=== PATIENT | female | born 1995 | race Caucasian/White ===

== ENCOUNTER 2016-08-10 21:25 | Outpatient (CLI) | payer MEDICAID ==
[2016-08-10 22:17] LABS: APPEARANCE,URINE SLIGHTLY-CLOUDY; BILIRUBIN,URINE NEGATIVE (NEGATIVE); GLUCOSE, URINE NEGATIVE (NEGATIVE); KETONES,URINE 20 mg/dL (NEGATIVE); LEUKOCYTE ESTERASE,URINE TRACE (NEGATIVE); NITRITE,URINE NEGATIVE (NEGATIVE); PROTEIN,URINE NEGATIVE (NEGATIVE); URINE SPECIFIC GRAVITY 1.013; UROBILINOGEN,URINE NEGATIVE mg/dL (<2.0)
[2016-08-10 22:23] LABS: AMNISURE (ROM) NEGATIVE (NEGATIVE)
[2016-08-10 22:31] LABS: URINE BARBITURATES SCREEN NEGATIVE; URINE METHADONE SCREEN NEGATIVE; URINE OPIATES LOW NEGATIVE; URINE PHENCYCLIDINE SCREEN NEGATIVE
--- NOTE | 2016-08-21 05:27 | Non Stress Test Report ---
Non Stress Test Datetime Report Generated by CPN: 08/21/2016 05:26 DEMOGRAPHIC EGA NST: 39.5 INDICATION Indication for Study: Other Indication for Study (NST) Other: labor check URINE RESULTS Urine Protein, NST: Negative Urine Ketones - NST: Positive Urine Glucose - NST: Negative Urine Blood - NST: Negative MONITORING Monitor Explained: Monitor Explained; Test Explained; Patient Verbalized Understanding Time on Monitor: 08/10/2016 21:45 Time off Monitor: 08/10/2016 22:53 NST Duration: 68 NST INTERVENTIONS NST Interventions: PO Hydration Physician Notified NST: Dr. Wilkinson BABY A: [id number] BABY A Movement : Present Contraction Frequency : 3-4.5 FHR Baseline : 125 Accelerations : 15X15 Decelerations : None Variability : Moderate 6-25bpm NST Review: Meets Criteria for Reactive NST NST Review and Verified By : Shalini Wilcox Rn NST Results: Reactive NST REPORT Report Trigger: Send Report
== END 2016-08-10 23:07 | disposition home or self-care (01) ==
LOC: LC 21:25
PROVIDERS: ATTEND Obstetrics & Gynecology
PROC: 4A1HXCZ Monitoring of Products of Conception, Cardiac Rate, External Approach (ICD-10-PCS; principal; 2016-08-10)
DX: O47.1 False labor at or after 37 completed weeks of gestation (principal); Z3A.39 39 weeks gestation of pregnancy
CPT/HCPCS: 59025; 80307; 81005; 84112

== ENCOUNTER 2016-08-20 14:20 | Inpatient (IN) | payer MEDICAID ==
[2016-08-21] MEDS ORDERED: OXYTOCIN/NORMAL SALINE 1,000 ML IV PRN ×2 (06:58→22:01)
[2016-08-21] MEDS ORDERED: RINGERS SOLUTION,LACTATED 1,000 ML IV PRN (06:58)
[2016-08-21] MEDS ORDERED: RINGERS SOLUTION,LACTATED 300 ML IV ONE (06:58)
[2016-08-21 07:11] LABS: APPEARANCE,URINE CLOUDY; BILIRUBIN,URINE NEGATIVE (NEGATIVE); GLUCOSE, URINE 50 mg/dL (NEGATIVE); KETONES,URINE NEGATIVE (NEGATIVE); LEUKOCYTE ESTERASE,URINE TRACE (NEGATIVE); NITRITE,URINE NEGATIVE (NEGATIVE); PROTEIN,URINE NEGATIVE (NEGATIVE); URINE SPECIFIC GRAVITY 1.013; UROBILINOGEN,URINE NEGATIVE mg/dL (<2.0)
[2016-08-21] MEDS ORDERED: OXYTOCIN/NORMAL SALINE 20 UNIT/1,000 ML RTUINJ ONE ×2 (07:28→21:04)
[2016-08-21 07:30] LABS: URINE BARBITURATES SCREEN NEGATIVE; URINE METHADONE SCREEN NEGATIVE; URINE OPIATES LOW NEGATIVE; URINE PHENCYCLIDINE SCREEN NEGATIVE
[2016-08-21 07:43] LABS: ABSOLUTE EOSINOPHILS # (AUTO) 0.1 10^3/uL (0.0-0.6); ABSOLUTE LYMPHOCYTES (AUTO) 1.8 10^3/uL (0.5-4.7); ABSOLUTE MONOCYTES (AUTO) 0.9 10^3/uL (0.1-1.4); ABSOLUTE NEUT (AUTO) 4.8 10^3/uL (1.7-8.2); BASOPHILS % (AUTO) 0.5 % (0-2); EOSINOPHILS % (AUTO) 1.5 % (0-6); HEMATOCRIT 32.2 % (36.0-47.0); HEMOGLOBIN 10.9 g/dL (12.0-15.5); HGB HCT DIFFERENCE 0.5; LYMPHOCYTES % (AUTO) 23.6 % (13-45); MEAN CORPUSCULAR HEMOGLOBIN 29.3 pg (27.0-33.4); MEAN CORPUSCULAR HGB CONC 33.9 g/dL (32.0-36.0); MEAN CORPUSCULAR VOLUME 86 fl (80-97); MONOCYTES % (AUTO) 11.4 % (3-13); RED BLOOD COUNT 3.73 10^6/uL (3.72-5.28); RED CELL DISTRIBUTION WIDTH 14.7 % (11.5-14.0); WHITE BLOOD COUNT 7.5 10^3/uL (4.0-10.5)
--- NOTE | 2016-08-21 09:16 | L&D Progress Notes ---
PROGRESS NOTES Datetime Report Generated by CPN: 08/21/2016 09:15 PROGRESS NOTE Impression Other: Induction of labor Procedures: Sterile Vag Exam Plan: Continue Present Management Informed Consent Obtained: Vaginal Delivery; Induction of Labor; Vaginal After ; Risks, Benefits and Alternatives Discussed Vital Signs : Reviewed; Within Normal Limits Comment: assuming care of this 21yo @ 41w2d into L_D this am for IOL S: reports starting to feel more contractions since pitocin started. Anticipates epidural for pain control O: VSS, cervix as stated above, UC 2-3min apart, pit @ 6mu/min A: IOL-stable P: continue IOL, reasses as clinically indicated. Epidural prn VAGINAL EXAM Dilatation: 3 Effacement: 80 Station: -2 Contractions: 2-3min MEMBRANES Membranes: Intact FETUS A FHR - Baseline: 125 Monitoring: External US Variability: Moderate 6-25bpm Accelerations: 15X15 Decelerations: None SIGNATURE SIGNATURE: [id number] SIGNATURE: [id number] Assignment: Berta Coats MD Signature: with User ID: [email or web address] : with User ID: [email or web address]
--- NOTE | 2016-08-21 15:31 | L&D Progress Notes ---
PROGRESS NOTES Datetime Report Generated by CPN: 08/21/2016 15:31 PROGRESS NOTE Impression Other: IOL-stable Procedures: Artificial ROM; Sterile Vag Exam Plan: Continue Present Management; Induction Informed Consent Obtained: Vaginal Delivery; Induction of Labor; Risks, Benefits and Alternatives Discussed Vital Signs : Reviewed; Within Normal Limits Comment: S: Pt. comfortable with contractions O: VSS, UC as stated above, pit @ 20mu/min A: IOL-stable, AROM-clear fluid P: continue IOL will increase pitocin per DrErasto Coats VAGINAL EXAM Dilatation: 3 Effacement: 90 Station: -1 Contractions: 1.5-3 MEMBRANES Membranes: Ruptured FETUS A Monitoring: External US Decelerations: None FHR Category: Category I FETUS C SIGNATURE: [id number];[id number] Assignment: Berta Coats MD Signature: with User ID: [email or web address] : with User ID: [email or web address]
[2016-08-21] MEDS ORDERED: EPHEDRINE SULFATE INJ 50 MG/1 ML AMPULE ONE (16:56)
[2016-08-21] MEDS ORDERED: FENTANYL/BUPIVACAINE/NS/PF 200 MCG/100 ML RTUINJ EPI ONE (16:57)
[2016-08-21] MEDS ORDERED: BUPIVACAINE HCL 0.25 % INJ/PF (2.5 MG/1 ML) 30 ML VIAL ONE (16:57)
[2016-08-21] MEDS ORDERED: LIDOCAINE 1% INJ-PF (10 MG/ML) 30 ML SDV ONE (21:04)
[2016-08-21] MEDS ORDERED: METHYLERGONOVINE MALEATE INJ/PF 0.2 MG/1 ML AMPULE ONE (21:04)
[2016-08-21] MEDS ORDERED: MISOPROSTOL 0.2 MG TABLET ONE (21:04)
[2016-08-21] MEDS ORDERED: ACETAMINOPHEN WITH CODEINE #3 TABLET PO PRN ×2 (22:01)
[2016-08-21] MEDS ORDERED: BENZOCAINE/MENTHOL AEROSOL SPRAY 56 ML TOP PRN (22:01)
[2016-08-21] MEDS ORDERED: ZOLPIDEM TARTRATE 5 MG TABLET PO PRN (22:01)
[2016-08-21] MEDS ORDERED: DIBUCAINE 1% OINTMENT 28 GM TP PRN (22:01)
[2016-08-21] MEDS ORDERED: DIPH/PERTUSS(ACELL)/TETANUS VAC/PF 0.5 ML SYR (>=10YO) IM PRN (22:01)
[2016-08-21] MEDS ORDERED: MEASLES,MUMPS&RUBELLA VACC/PF 0.5 ML VIAL SUBCUT PRN (22:01)
[2016-08-21] MEDS ORDERED: IBUPROFEN 800 MG TABLET ONE (23:20)
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
--- NOTE | 2016-08-22 00:05 | Delivery Summary ---
Del Sum A-C Datetime Report Generated by CPN: 08/22/2016 00:05 DELIVERY PERSONNEL DELIVERY PERSONNEL: [id number];[id number];[id number] Delivery Doctor:: Berta Coats MD Labor and Delivery Nurse:: Steph Duque RNchemical maker Nurse:: Roxanna Wilcox RN MATERNAL INFORMATION Delivery Anesthesia: Epidural Medications After Delivery: Pitocin Bolus-Please Comment Estimated Blood Loss (ml): 200 Maternal Complications: None LABOR SUMMARY EDC: 08/12/2016 00:00 No. Babies in Womb: 1 Attempted: No Labor Anesthesia: Epidural LABOR INFORMATION Reason for Induction: Postterm Onset of Labor: 08/21/2016 18:04 Complete Dilatation: 08/21/2016 20:59 Cervical Ripening Agents: Cervidil Oxytocin: Induction Group B Beta Strep: Negative Antibiotics # of Doses: 0 MEMBRANES Membranes Rupture Method: Artificial Rupture of Membranes: 08/21/2016 15:16 Length of Rupture (hr): 6.27 Amniotic Fluid Color: Clear Amniotic Fluid Amount: Moderate STAGES OF LABOR Stage 1 hr: 2 Stage 1 min: 55 Stage 2 hr: 0 Stage 2 min: 33 Stage 3 hr: 0 Stage 3 min: 3 Total Time in Labor hr: 3 Total Time in Labor min: 31 VAGINAL DELIVERY Episiotomy: None Laceration Extension: Second Degree Laceration Type: Perineal Sponge Count Correct: N/A Sharps Count Correct: Yes Count Comment: 2-0 chromic repair in normal fashion CSECTION DELIVERY Primary Indication: N/A Secondary Indication: N/A CSection Incidence: N/A Labor: N/A Elective: N/A CSection Incision: N/A BABY A INFORMATION Infant Delivery Date/Time: 08/21/2016 21:32 Method of Delivery: Vaginal Born in Route : No : N/A Forceps: N/A Vacuum Extraction: N/A Shoulder Dystocia : No PRESENTATION/POSITION BABY A Presentation: Cephalic Cephalic Presentation: Vertex Vertex Position: Left Occipital Posterior Breech Presentation: N/A PLACENTA INFORMATION BABY A Placenta Delivery Time : 08/21/2016 21:35 Placenta Method of Delivery: Spontaneous Placenta Status: Delivered SCORES BABY A Heart Rate 1 min: >100 bpm Resp Effort 1 min: Slow, Irregular Reflex Irritability 1 min: Cough or Sneeze or Pulls Away Muscle Tone 1 min: Active Motion Color 1 min: Body Delta, Extremities Blue SCORE 1 MIN: 8 Heart Rate 5 min: >100 bpm Resp Effort 5 min: Good Cry Reflex Irritability 5 min: Cough or Sneeze or Pulls Away Muscle Tone 5 min: Active Motion Color 5 min: Body Delta, Extremities Blue SCORE 5 MIN: 9 INFORMATION BABY A Gestational Age at Delivery: 41.2 Gestational Status: Late Term- 41- 41.6 Weeks Infant Outcome : Liveborn Infant Condition : Stable Sex: Female IDENTIFICATION BABY A Verification Date/Time: 08/21/2016 21:45 ID Band Number: [id number] Mother's Name Verified: Yes RN Verifying Infant: R Jazz, RNC Additional Verifying Personnel: Shalini Wilcox RN WEIGHT/LENGTH BABY A Birthweight (gm): 3560 Infant Weight (lb): 7 Infant Weight (oz): 14 Length (in): 20.00 Length (cm): 50.80 CORD INFORMATION BABY A No. Cord Vessels: 3 Nuchal Cord : N/A Cord Blood Taken: Yes-For Eval (Mom's Blood Type - or O+) Suction: Mouth; Nose ASSESSMENT BABY A Complications: None Physical Findings at Delivery: Within Normal Limits Infant Respirations: Grunting Skin to Skin: Yes Skin to Skin Time (min): 40 Cracking Still Operator/ALS Called : No Infant Care By: A Wilcox Rn Transferred To: Remains with Mother BABY B INFORMATION : N/A SIGNATURES Signature: with User ID: [email or web address]
[2016-08-22] MEDS: IBUPROFEN 800 MG TABLET PO SCH ×3 (06:39→21:13)
[2016-08-22 08:42] LABS: HEMATOCRIT 29.6 % (36.0-47.0); HEMOGLOBIN 9.9 g/dL (12.0-15.5); HGB HCT DIFFERENCE 0.1; MEAN CORPUSCULAR HEMOGLOBIN 29.1 pg (27.0-33.4); MEAN CORPUSCULAR HGB CONC 33.5 g/dL (32.0-36.0); MEAN CORPUSCULAR VOLUME 87 fl (80-97); RED BLOOD COUNT 3.41 10^6/uL (3.72-5.28); RED CELL DISTRIBUTION WIDTH 14.9 % (11.5-14.0); WHITE BLOOD COUNT 11.1 10^3/uL (4.0-10.5)
--- NOTE | 2016-08-22 10:06 | PDOC PROGRESS REPORT ---
Subjective-OB Subjective: Post Delivery Day: 1 21 year old. Denies any needs at this time, voiding well, lochia is stable, pain well controlled. Physical Exam (OB) Vital Signs: Temp Pulse Resp BP Pulse Ox 97.8 F 68 16 106/53 L 99 08/22/16 08:00 08/22/16 08:00 08/22/16 08:00 08/22/16 08:00 08/22/16 08:00 Intake & Output 08/21/16 08/22/16 08/23/16 06:59 06:59 06:59 Output Total 1500 Balance -1500 Weight 67 kg - Lochia Lochia Amount: Small 10-25 ml Lochia Color: Rubra/Red - Abdomen Description: Soft, Round Hernia Present: No Fundal Description: Firm, Midline Fundal Height: u/u - u/2 Objective-Diagnostic Laboratory: 08/22/16 07:41 08/22/16 07:41 WBC 11.1 H RBC 3.41 L Hgb 9.9 L Hct 29.6 L MCV 87 MCH 29.1 MCHC 33.5 RDW 14.9 H Plt Count 195 Assessment and Plan(PN) - Assessment and Plan (1) Vaginal delivery Is this a current diagnosis for this admission?: YesPlan: routine pp care (2) History of depression Is this a current diagnosis for this admission?: YesPlan: d/c planning - Time Spent with Patient Time with patient: Less than 15 minutes Critical Time spent with patient: Less than 15 minutes Medications reviewed and adjusted accordingly: Yes - Disposition Anticipated Discharge: Home Within: within 48 hours
[2016-08-22] MEDS: SENNOSIDES/DOCUSATE 8.6-50 MG 1 EACH TABLET PO SCH (11:43)
[2016-08-22] MEDS: FERROUS SULFATE 325 MG TABLET PO SCH ×2 (11:45→17:47)
[2016-08-22] MEDS: PRENATAL VITAMIN W-O CA NO5/FE FUMARATE/FA CAPSULE PO SCH (11:45)
[2016-08-22] MEDS: DOCUSATE SODIUM 100 MG CAPSULE PO SCH ×2 (11:45→17:47)
[2016-08-22] MEDS ORDERED: ALBUTEROL SULFATE HFA (90 MCG/PUFF) 200 PUFF/8.5 GM MDI IH PRN (16:58)
[2016-08-23] MEDS: IBUPROFEN 800 MG TABLET PO SCH (06:17)
--- NOTE | 2016-08-23 08:28 | PDOC DISCHARGE SUMMARY ---
Final Diagnosis Discharge Date: 08/23/16 - Final Diagnosis (1) Vaginal delivery Is this a current diagnosis for this admission?: Yes (2) History of depression Is this a current diagnosis for this admission?: Yes Discharge Data - Discharge Medication Home Medications: Albuterol Sulfate [Proair HFA] 1 - 2 puff IH PRN PRN 02/25/14 Vit #76/Iron,Carb/FA [Pnv 29-1 Tablet] 1 tab PO DAILY 08/11/16 Sertraline HCl [Zoloft 50 mg Tablet] 100 mg PO DAILY 08/11/16 Acetaminophen with Codeine [Tylenol #3 Tablet] 1 each PO Q4HP PRN #14 tablet 06/06 Docusate Sodium [Colace 100 mg Capsule] 100 mg PO BID #60 capsule 08/23/16 Ferrous Sulfate [Feosol 325 mg Tablet] 325 mg PO BID #60 tablet 08/23/16 Ibuprofen [Motrin 800 mg Tablet] 800 mg PO Q8 #60 tablet 08/23/16 Gestational Age: 41.2 Reason(s) for Admission: Induction of Labor Procedures: NST Intrapartum Procedure(s): Spontaneous Vaginal Delivery Complication(s): Laceration-Perineal Laceration-Degree: 2nd - [place] Data Baby 1 Female at 1 minute: 8 at 5 minutes: 9 Weight: 3560 kg Home with Mother: Yes Complications: No - Diagnosis Test Laboratory: Temp Pulse Resp BP Pulse Ox 98.6 F 79 16 113/52 L 99 08/22/16 20:20 08/22/16 20:20 08/22/16 20:20 08/22/16 20:33 08/22/16 20:20 08/21/16 08/21/16 08/22/16 06:46 07:20 07:41 RBC 3.73 3.41 L Hgb 10.9 L 9.9 L Hct 32.2 L 29.6 L Urine Opiates Screen NEGATIVE - Discharge information/Instructions Discharge Activity: Activity As Tolerated, Pelvic Rest, No tub bath Discharge Diet: Regular Disposition: HOME, SELF-CARE Follow up with: [facility] in: 4, Weeks
[2016-08-23 09:53] VITALS: BP 113/52
[2016-08-23] MEDS ORDERED: SERTRALINE HCL 50 MG TABLET PO SCH (10:00)
[2016-08-23] MEDS: PRENATAL VITAMIN W-O CA NO5/FE FUMARATE/FA CAPSULE PO SCH (10:12)
[2016-08-23] MEDS: DOCUSATE SODIUM 100 MG CAPSULE PO SCH (10:12)
[2016-08-23] MEDS: FERROUS SULFATE 325 MG TABLET PO SCH (10:12)
[2016-08-23] MEDS: SENNOSIDES/DOCUSATE 8.6-50 MG 1 EACH TABLET PO SCH (10:12)
== END 2016-08-23 11:10 | disposition home or self-care (01) | DRG 775 ==
LOC: EEVIPCON 08-21 06:30 → LR 08-21 06:30 → 2S 08-21 23:43
PROVIDERS: ADMIT Obstetrics & Gynecology; ATTEND Obstetrics & Gynecology
PROC: 10E0XZZ Delivery of Products of Conception, External Approach (ICD-10-PCS; principal; 2016-08-21)
PROC: 0KQM0ZZ Repair Perineum Muscle, Open Approach (ICD-10-PCS; 2016-08-21)
PROC: 4A1HXCZ Monitoring of Products of Conception, Cardiac Rate, External Approach (ICD-10-PCS; 2016-08-21)
PROC: 3E033VJ Introduction of Other Hormone into Peripheral Vein, Percutaneous Approach (ICD-10-PCS; 2016-08-21)
PROC: 10907ZC Drainage of Amniotic Fluid, Therapeutic from Products of Conception, Via Natural or Artificial Opening (ICD-10-PCS; 2016-08-21)
DX: O48.0 Post-term pregnancy (principal); O70.1 Second degree perineal laceration during delivery; O99.344 Other mental disorders complicating childbirth; F43.10 Post-traumatic stress disorder, unspecified; F41.9 Anxiety disorder, unspecified; Z62.810 Personal history of physical and sexual abuse in childhood; F32.9 Major depressive disorder, single episode, unspecified; O99.52 Diseases of the respiratory system complicating childbirth; J45.909 Unspecified asthma, uncomplicated; O99.02 Anemia complicating childbirth; D64.9 Anemia, unspecified; Z3A.41 41 weeks gestation of pregnancy; Z37.0 Single live birth; Z88.0 Allergy status to penicillin; Z87.891 Personal history of nicotine dependence; Z79.899 Other long term (current) drug therapy; Z14.1 Cystic fibrosis carrier
CPT/HCPCS: 36415; 80307; 81005; 85025; 85027; 86592; 86850; 86900; 86901; 94760; J2210; J2590; J3490

== ENCOUNTER 2016-09-14 06:39 | Emergency (ER) | payer OTHER, MEDICAID ==
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
[2016-09-14 08:12] LABS: ABSOLUTE BASOPHILS # (AUTO) 0.1 10^3/uL (0.0-0.2); ABSOLUTE EOSINOPHILS # (AUTO) 0.2 10^3/uL (0.0-0.6); ABSOLUTE LYMPHOCYTES (AUTO) 2.1 10^3/uL (0.5-4.7); ABSOLUTE MONOCYTES (AUTO) 0.5 10^3/uL (0.1-1.4); ABSOLUTE NEUT (AUTO) 4.4 10^3/uL (1.7-8.2); BASOPHILS % (AUTO) 0.8 % (0-2); EOSINOPHILS % (AUTO) 3.4 % (0-6); HEMATOCRIT 43.7 % (36.0-47.0); HEMOGLOBIN 14.5 g/dL (12.0-15.5); HGB HCT DIFFERENCE -0.2; LYMPHOCYTES % (AUTO) 28.8 % (13-45); MEAN CORPUSCULAR HEMOGLOBIN 28.4 pg (27.0-33.4); MEAN CORPUSCULAR HGB CONC 33.2 g/dL (32.0-36.0); MEAN CORPUSCULAR VOLUME 86 fl (80-97); MONOCYTES % (AUTO) 6.8 % (3-13); RED BLOOD COUNT 5.11 10^6/uL (3.72-5.28); RED CELL DISTRIBUTION WIDTH 14.2 % (11.5-14.0); SEGMENTED NEUTROPHILS % (AUTO) 60.2 % (42-78); WHITE BLOOD COUNT 7.3 10^3/uL (4.0-10.5)
[2016-09-14 08:31] LABS: ALANINE AMINOTRANSFERASE 44 U/L (9-52); ALKALINE PHOSPHATASE 96 U/L (38-126); ANION GAP 12 (5-19); ASPARTATE AMINO TRANSFERASE 28 U/L (14-36); BILIRUBIN,DIRECT 0.3 mg/dL (0.0-0.4); BILIRUBIN,TOTAL 0.4 mg/dL (0.2-1.3); BLOOD UREA NITROGEN 13 mg/dL (7-20); CALCIUM 9.5 mg/dL (8.4-10.2); CARBON DIOXIDE 26 mmol/L (22-30); CHLORIDE 106 mmol/L (98-107); CREATININE RESULT 0.61 mg/dL (0.52-1.25); GLUCOSE 96 mg/dL (75-110); POTASSIUM 4.3 mmol/L (3.6-5.0); SODIUM 143.5 mmol/L (137-145); TOTAL PROTEIN 7.5 g/dL (6.3-8.2)
[2016-09-14 08:32] LABS: ALCOHOL < 10 mg/dL (NONE DETECTED)
[2016-09-14 09:01] LABS: APPEARANCE,URINE SLIGHTLY-CLOUDY; BILIRUBIN,URINE NEGATIVE (NEGATIVE); GLUCOSE, URINE NEGATIVE (NEGATIVE); KETONES,URINE NEGATIVE (NEGATIVE); LEUKOCYTE ESTERASE,URINE LARGE (NEGATIVE); NITRITE,URINE NEGATIVE (NEGATIVE); PROTEIN,URINE NEGATIVE (NEGATIVE); URINE SPECIFIC GRAVITY 1.021; UROBILINOGEN,URINE NEGATIVE mg/dL (<2.0)
[2016-09-14 09:02] LABS: URINE BARBITURATES SCREEN NEGATIVE; URINE METHADONE SCREEN NEGATIVE; URINE OPIATES LOW NEGATIVE; URINE PHENCYCLIDINE SCREEN NEGATIVE
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
--- NOTE | 2016-09-14 09:35 | EKG REPORT ---
SEVERITY:- NORMAL ECG - SINUS RHYTHM : Confirmed by: Blane Nicolas 14-Sep-2016 09:34:45
[2016-09-14] MEDS ORDERED: FLUOXETINE HCL 20 MG CAPSULE PO SCH (11:00)
[2016-09-14] MEDS ORDERED: BUSPIRONE HCL 10 MG TABLET PO SCH (11:00)
[2016-09-14] MEDS ORDERED: CLONIDINE HCL 0.1 MG TABLET PO SCH (22:00)
--- NOTE | 2016-09-15 10:20 | ER Document Report ---
Doctor's Note Notes: 09/15/16 10:18 Patient resting comfortably on stretcher, Mrs. Koch, mother of the family with whom she resides is at bedside, patient does report feeling much better, she is smiling and interactive, denies having any suicidal thoughts or intent for self- harm today, feels as though she is possibly ready to be discharged home with appropriate resources, she is noted to have urinalysis that is consistent with a urinary tract infection and she does confirm burning sensation with urination over the past few weeks, she will be started on antibiotics for this, she is otherwise medically stable for transfer or discharge
[2016-09-15] MEDS ORDERED: NITROFURANTOIN MONOHYD/M-CRYST 100 MG CAPSULE PO ONE (10:21)
[2016-09-15 12:35] VITALS: BP 101/46
== END 2016-09-15 12:32 | disposition home or self-care (01) ==
LOC: ER 06:39
DX: F53 Mental and behavioral disorders associated with the puerperium, not elsewhere classified (principal); O99.345 Other mental disorders complicating the puerperium; F43.10 Post-traumatic stress disorder, unspecified; F41.9 Anxiety disorder, unspecified; O86.20 Urinary tract infection following delivery, unspecified; O99.53 Diseases of the respiratory system complicating the puerperium; J45.909 Unspecified asthma, uncomplicated; Z79.899 Other long term (current) drug therapy; Z88.0 Allergy status to penicillin
CPT/HCPCS: 93005; 99284; 36415; 80307 ×4; 85025; 80053; 81001; 93010; J3490 ×4; J8499

== ENCOUNTER → 2017-02-06 | Outpatient (CLI) | payer MEDICAID ==
--- NOTE | 2017-02-06 14:08 | RADIOLOGY REPORT (SQ) ---
EXAM DESCRIPTION: SOFT TISSUE NECK COMPLETED DATE/TIME: 02/06/2017 12:30 pm REASON FOR STUDY: PAIN IN THROAT R07.0 PAIN IN THROAT COMPARISON: None. NUMBER OF VIEWS: Two views. TECHNIQUE: AP and lateral radiographic image of the soft tissues of the neck. LIMITATIONS: None. FINDINGS: EPIGLOTTIS: Normal. Contour normal. Aryepiglottic folds normal. PREVERTEBRAL SOFT TISSUES: Normal. No soft tissue swelling. SUBGLOTTIC AREA: Normal. No narrowing. RETROPHARYNGEAL SPACE: Normal. No soft tissue masses. BONES: No significant findings. LUNG APICES: Normal. OTHER: No radiopaque foreign body. No other significant finding. IMPRESSION: NEGATIVE STUDY OF THE SOFT TISSUES OF THE NECK. TECHNICAL DOCUMENTATION: JOB ID: [id number] [employer]- All Rights Reserved
== END ==
LOC: OD 12:08
PROVIDERS: ATTEND Physician Assistant
DX: R07.0 Pain in throat (principal)
CPT/HCPCS: 70360

== ENCOUNTER → 2017-05-29 | Outpatient (CLI) | payer MEDICAID ==
[2017-05-29 18:04] LABS: HEMATOCRIT 40.8 % (36.0-47.0); HEMOGLOBIN 13.6 g/dL (12.0-15.5); MEAN CORPUSCULAR HEMOGLOBIN 27.9 pg (27.0-33.4); MEAN CORPUSCULAR HGB CONC 33.4 g/dL (32.0-36.0); MEAN CORPUSCULAR VOLUME 83 fl (80-97); PLATELET COUNT 251 10^3/uL (150-450); RED BLOOD COUNT 4.89 10^6/uL (3.72-5.28); RED CELL DISTRIBUTION WIDTH 13.3 % (11.5-14.0); WHITE BLOOD COUNT 5.4 10^3/uL (4.0-10.5)
[2017-05-29 18:31] LABS: ALANINE AMINOTRANSFERASE 33 U/L (9-52); ALBUMIN 4.4 g/dL (3.5-5.0); ALKALINE PHOSPHATASE 57 U/L (38-126); ANION GAP 9 (5-19); ASPARTATE AMINO TRANSFERASE 21 U/L (14-36); BILIRUBIN,DIRECT 0.4 mg/dL (0.0-0.4); BILIRUBIN,TOTAL 0.4 mg/dL (0.2-1.3); BLOOD UREA NITROGEN 13 mg/dL (7-20); CALCIUM 9.5 mg/dL (8.4-10.2); CARBON DIOXIDE 29 mmol/L (22-30); CHLORIDE 106 mmol/L (98-107); GLUCOSE 89 mg/dL (75-110); POTASSIUM 4.1 mmol/L (3.6-5.0); TOTAL PROTEIN 7.8 g/dL (6.3-8.2)
[2017-05-29 18:45] LABS: FREE T4 (FREE THYROXINE) 0.84 ng/dL (0.78-2.19)
[2017-05-29 18:59] LABS: THYROID STIMULATING HORMONE 2.95 uIU/mL (0.47-4.68)
== END ==
LOC: OD 16:56
PROVIDERS: ATTEND Physician Assistant
DX: F34.1 Dysthymic disorder (principal); R53.83 Other fatigue; Z13.21 Encounter for screening for nutritional disorder; Z13.29 Encounter for screening for other suspected endocrine disorder
CPT/HCPCS: 36415; 80053; 82306; 84439; 84443; 85027

== ENCOUNTER 2017-08-07 23:52 | Emergency (ER) | payer OTHER, MEDICAID ==
[2017-08-08 00:42] LABS: ABSOLUTE LYMPHOCYTES (AUTO) 0.9 10^3/uL (0.5-4.7); ABSOLUTE MONOCYTES (AUTO) 0.4 10^3/uL (0.1-1.4); ABSOLUTE NEUT (AUTO) 10.8 10^3/uL (1.7-8.2); BASOPHILS % (AUTO) 0.2 % (0-2); HEMATOCRIT 41.1 % (36.0-47.0); HEMOGLOBIN 13.6 g/dL (12.0-15.5); LYMPHOCYTES % (AUTO) 7.6 % (13-45); MEAN CORPUSCULAR HEMOGLOBIN 27.1 pg (27.0-33.4); MEAN CORPUSCULAR HGB CONC 33.1 g/dL (32.0-36.0); MEAN CORPUSCULAR VOLUME 82 fl (80-97); MONOCYTES % (AUTO) 3.6 % (3-13); PLATELET COUNT 290 10^3/uL (150-450); RED BLOOD COUNT 5.02 10^6/uL (3.72-5.28); RED CELL DISTRIBUTION WIDTH 13.4 % (11.5-14.0); SEGMENTED NEUTROPHILS % (AUTO) 88.6 % (42-78); TOTAL CELLS COUNTED % (AUTO) 100 %; WHITE BLOOD COUNT 12.2 10^3/uL (4.0-10.5)
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
[2017-08-08 00:59] LABS: APPEARANCE,URINE SLIGHTLY-CLOUDY; BILIRUBIN,URINE NEGATIVE (NEGATIVE); COLOR,URINE YELLOW; GLUCOSE, URINE NEGATIVE (NEGATIVE); KETONES,URINE TRACE mg/dL (NEGATIVE); LEUKOCYTE ESTERASE,URINE NEGATIVE (NEGATIVE); NITRITE,URINE NEGATIVE (NEGATIVE); PROTEIN,URINE NEGATIVE (NEGATIVE); URINE SPECIFIC GRAVITY 1.023
[2017-08-08 01:05] LABS: ALANINE AMINOTRANSFERASE 24 U/L (9-52); ALBUMIN 4.5 g/dL (3.5-5.0); ALKALINE PHOSPHATASE 67 U/L (38-126); ASPARTATE AMINO TRANSFERASE 20 U/L (14-36); BILIRUBIN,DIRECT 0.4 mg/dL (0.0-0.4); BILIRUBIN,TOTAL 0.5 mg/dL (0.2-1.3); BLOOD UREA NITROGEN 11 mg/dL (7-20); CHLORIDE 107 mmol/L (98-107); GLUCOSE 134 mg/dL (75-110); POTASSIUM 4.1 mmol/L (3.6-5.0)
[2017-08-08 01:07] LABS: ACETAMINOPHEN < 10 ug/mL (10-30); ALCOHOL < 10 mg/dL (NONE DETECTED); SALICYLATE < 1.0 mg/dL (2.0-20.0)
[2017-08-08 01:09] LABS: CARBON DIOXIDE 22 mmol/L (22-30); SODIUM 149.1 mmol/L (137-145)
[2017-08-08 01:12] LABS: ANION GAP 20 (5-19)
[2017-08-08 01:13] LABS: URINE AMPHETAMINES SCREEN NEGATIVE; URINE BARBITURATES SCREEN NEGATIVE; URINE BENZODIAZEPINES SCREEN NEGATIVE; URINE COCAINE SCREEN NEGATIVE; URINE MARIJUANA (THC) SCREEN NEGATIVE; URINE METHADONE SCREEN NEGATIVE; URINE PHENCYCLIDINE SCREEN NEGATIVE
[2017-08-08] MEDS ORDERED: NORMAL SALINE 1000 ML 1,000 ML IV ONE (02:16)
--- NOTE | 2017-08-08 09:35 | ER Document Report ---
Doctor's Note Notes: 08/08/17 09:33 This is a 22-year-old female who presented to the emergency room with depression after an overdose with processing. She is currently alert and oriented 3. She denies SI at this time. She does report a recent sinusitis and is requesting her medicines for this. Her vital signs and labs have been stable. We are awaiting evaluation by the psychology team. In the meantime, we will call her friend had home to bring in her medicines.
[2017-08-08] MEDS ORDERED: IBUPROFEN 400 MG TABLET PO ONE (12:29)
[2017-08-08] MEDS ORDERED: BENZTROPINE MESYLATE 1 MG TABLET PO SCH (12:30)
[2017-08-08] MEDS ORDERED: OLANZAPINE 5 MG TABLET PO SCH (12:30)
[2017-08-08] MEDS ORDERED: BUSPIRONE HCL 10 MG TABLET PO SCH (12:30)
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
[2017-08-08] MEDS ORDERED: BENZTROPINE MESYLATE 1 MG TABLET PO ONE (14:15)
[2017-08-08] MEDS: OLANZAPINE 5 MG TABLET PO SCH (18:54)
[2017-08-08] MEDS: BUSPIRONE HCL 10 MG TABLET PO SCH (18:55)
--- NOTE | 2017-08-08 20:48 | EKG REPORT ---
SEVERITY:- OTHERWISE NORMAL ECG - SINUS ARRHYTHMIA, RATE [id number] : Confirmed by: Blane Nicolas 08-Aug-2017 17:47:37
--- NOTE | 2017-08-09 10:15 | ER Document Report ---
Doctor's Note Notes: 08/09/17 10:14 Medical rounds: Chart reviewed and patient interviewed briefly. Vital signs are normal. Laboratory values satisfactory. On examination, patient is alert, oriented, and cooperative. She denies any somatic complaints at this time. She remains medically stable, pending reevaluation by psych.
[2017-08-09] MEDS: OLANZAPINE 5 MG TABLET PO SCH ×2 (10:24→18:29)
[2017-08-09] MEDS: BUSPIRONE HCL 10 MG TABLET PO SCH ×2 (10:25→18:29)
[2017-08-09] MEDS: BENZTROPINE MESYLATE 1 MG TABLET PO SCH (10:25)
[2017-08-10] MEDS: BUSPIRONE HCL 10 MG TABLET PO SCH (09:06)
[2017-08-10] MEDS: BENZTROPINE MESYLATE 1 MG TABLET PO SCH (09:07)
[2017-08-10] MEDS: OLANZAPINE 5 MG TABLET PO SCH (09:07)
[2017-08-10] MEDS ORDERED: DOXYCYCLINE HYCLATE 100 MG TABLET PO SCH (10:00)
[2017-08-10] MEDS ORDERED: ACETAMINOPHEN 325 MG TABLET PO ONE (10:04)
--- NOTE | 2017-08-10 11:43 | PSYCHOLOGICAL NOTE ---
Psych Note - Psych Note Psych Note: Reason for consult: Suicidal ideation, intentional overdose Contact Permissions: Juan Daniel Mix [phone] Eval: am Final Disposition pm Patient is a 22 year old female. Patient reports on a scale of 1 through 10 with 10 being things are better she is out of 5. Patient reports she is feeling physically sick and has been sick since Thursday. Patient reports that she had visitors her friend that she lives with and it made her feel little bit better. Patient reports that she just wants to get rest and it has been able to sleep. Patient reports that she does not have any thoughts of wanting to harm, or kill herself at this time. Patient reports that she received medication changes and that she feels they are helping her. 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 Patient reports that she wants to work where she would be able to see her daughter in the same school when she grows up, her daughter is currently 11 months old. Patient reports that she has a good support system. Patient reports she is flexible with whatever treatment plan the psych and medical team discusses. Patient reports her daughter is a happy baby, patient stated " I just want to be happy, I don't want to feel this way, I want happiness". Medication recommendations per [facility]'s contracted psychiatrist Dr. Syeda RODRIGUEZ are as follows 1. Zyprexa 5 mg twice daily for mood stabilization 2. BuSpar 5 twice daily for anxiety 3. Cogentin 1 mg daily for prevention of possible side effects from Zyprexa Diagnosis: 309.81 (F43.10) posttraumatic stress disorder per history Impression/Plan: Recommendation to maintain involuntary commitment . [facility]'s contacted psychiatric provider made a medication recommendation yesterday 2017. Patient stated her mood has improved, however she is still feeling unwell ( physically). Patient stated she needs rest, and is willing to do what it takes to get better. Clinician observed patient is cooperative, demonstrating future oriented thinking, and however has flat affect , and depressed mood. clinician observed patient was endorsing suicidal thoughts less than 24 hours ago, although patient is denying any intent and plan regarding suicide additional observation needed, mental health to reassess at a later time. Attending physician in agreement with disposition and plan. Consulted with Dr. Perez regarding the management and care of patient.
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
[2017-08-10 16:27] VITALS: BP 110/62
== END 2017-08-10 16:27 | disposition home or self-care (01) ==
LOC: ER 23:52
DX: F43.10 Post-traumatic stress disorder, unspecified (principal); T44.6X2A Poisoning by alpha-adrenoreceptor antagonists, intentional self-harm, initial encounter; S51.811A Laceration without foreign body of right forearm, initial encounter; X78.1XXA Intentional self-harm by knife, initial encounter; Y92.002 Bathroom of unspecified non-institutional (private) residence as the place of occurrence of the external cause; F51.4 Sleep terrors [night terrors]; F31.9 Bipolar disorder, unspecified; J32.9 Chronic sinusitis, unspecified; Z79.899 Other long term (current) drug therapy
CPT/HCPCS: 93005; 99285; 36415; 80307 ×4; 84703; 85025; 80053; 81001; 93010; J3490 ×12

== ENCOUNTER 2017-09-01 18:29 | Emergency (ER) | payer MEDICAID, OTHER ==
[2017-09-01 20:44] LABS: APPEARANCE,URINE CLEAR; BILIRUBIN,URINE NEGATIVE (NEGATIVE); COLOR,URINE YELLOW; GLUCOSE, URINE NEGATIVE (NEGATIVE); KETONES,URINE NEGATIVE (NEGATIVE); LEUKOCYTE ESTERASE,URINE NEGATIVE (NEGATIVE); NITRITE,URINE NEGATIVE (NEGATIVE); PROTEIN,URINE NEGATIVE (NEGATIVE); URINE SPECIFIC GRAVITY 1.018; UROBILINOGEN,URINE NEGATIVE mg/dL (<2.0)
--- NOTE | 2017-09-01 20:52 | ER Document Report ---
ED General - General Chief Complaint: Constipation Stated Complaint: ABDOMINAL PAIN Time Seen by Provider: 09/01/17 20:13 Notes: 22-year-old female patient emergency department chief complaint of constipation. Patient was recently started on medications for her mental health condition. Has been taking olanzapine as well as Cogentin. States that her bowel movements are now infrequent. Has taken some [id number] remedies but does not seem to be helping. Thinks that she feels a little bloated. Denies any major pain at this time. No vomiting. No other major symptoms. States she feels a little bit better since coming to the ER now and wants to go home. TRAVEL OUTSIDE OF THE [place] IN LAST 30 DAYS: No - HPI Onset: Last week Onset/Duration: Gradual - Related Data Allergies/Adverse Reactions: Penicillins Allergy (Unknown, Verified 09/14/16 06:42) unknown Past Medical History - General Information source: Patient - Social History Smoking Status: Unknown if Ever Smoked Frequency of alcohol use: None Drug Abuse: None Lives with: Family Family History: Reviewed & Not Pertinent - Past Medical History Cardiac Medical History: Denies: Hx Coronary Artery Disease, Hx Heart Attack, Hx Hypertension Pulmonary Medical History: Reports: Hx Asthma Denies: Hx Bronchitis, Hx COPD, Hx Pneumonia Neurological Medical History: Denies: Hx Cerebrovascular Accident, Hx Seizures Renal/ Medical History: Denies: Hx Peritoneal Dialysis Musculoskeltal Medical History: Denies Hx Arthritis Psychiatric Medical History: Reports: Hx Depression Past Surgical History: Denies: Hx Hysterectomy - Immunizations Immunizations up to date: Yes Hx Diphtheria, Pertussis, Tetanus Vaccination: Yes Review of Systems - Review of Systems Constitutional: No symptoms reported EENT: No symptoms reported Cardiovascular: No symptoms reported Respiratory: No symptoms reported Gastrointestinal: See HPI, Abdomen distended, Constipation. denies: Abdominal pain, Diarrhea, Nausea, Vomiting Genitourinary: No symptoms reported Female Genitourinary: No symptoms reported Musculoskeletal: No symptoms reported Skin: No symptoms reported Hematologic/Lymphatic: No symptoms reported Neurological/Psychological: No symptoms reported Physical Exam - Vital signs Vitals: Temp Pulse Resp BP Pulse Ox 98.6 F 80 16 111/56 L 98 09/01/17 18:39 09/01/17 18:39 09/01/17 18:39 09/01/17 18:39 09/01/17 18:39 Interpretation: Normal - General General appearance: Appears well, Alert - HEENT Head: Normocephalic, Atraumatic Eyes: Normal Pupils: PERRL - Respiratory Respiratory status: No respiratory distress Chest status: Nontender Breath sounds: Normal Chest palpation: Normal - Cardiovascular Rhythm: Regular Heart sounds: Normal auscultation Murmur: No - Abdominal Inspection: Normal Distension: No distension Bowel sounds: Normal Tenderness: Nontender Organomegaly: No organomegaly - Back Back: Normal, Nontender - Extremities General upper extremity: Normal inspection, Nontender, Normal color, Normal ROM , Normal temperature General lower extremity: Normal inspection, Nontender, Normal color, Normal ROM , Normal temperature, Normal weight bearing. No: Megan's sign - Neurological Neuro grossly intact: Yes Cognition: Normal Orientation: AAOx4 Mackey Coma Scale Eye Opening: Spontaneous Mackey Coma Scale Verbal: Oriented Ritesh Coma Scale Motor: Obeys Commands Mackey Coma Scale Total: 15 Speech: Normal Motor strength normal: LUE, RUE, LLE, RLE Sensory: Normal - Psychological Associated symptoms: Normal affect, Normal mood - Skin Skin Temperature: Warm Skin Moisture: Dry Skin Color: Normal Course - Re-evaluation Re-evalutation: 09/01/17 21:28 No obvious abdominal distention. Not . Urinalysis negative. Find no compelling reason at this time to do x-rays or radiation studies. Have given patient information with regards to contact us to patient. Patient feels comfortable going home and trying magnesium and Dulcolax and return if symptoms get worse. - Vital Signs Vital signs: Temp Pulse Resp BP Pulse Ox 98.6 F 80 16 111/56 L 98 09/01/17 18:39 09/01/17 18:39 09/01/17 18:39 09/01/17 18:39 09/01/17 18:39 Discharge - Discharge Clinical Impression: Constipation Qualifiers: Constipation type: unspecified constipation type Qualified Code(s): K59.00 - Constipation, unspecified Condition: Good Disposition: HOME, SELF-CARE Instructions: Constipation ([facility]) Additional Instructions: Your urinalysis was unremarkable. You're not . Your abdomen was benign on exam today. In the event that symptoms get worse please do not hesitate to return for repeat evaluation. I would suggest starting some magnesium as described. This should be done on a daily basis. Intermittent use of Dulcolax (bisacodyl) could be helpful. Sometimes this is related to medications. You were recently started on some medications which could cause some GI upset. Please discuss this medicine and your symptoms with your doctor. Referrals: ANTONIO ANGEL MD [Primary Care Provider] - Follow up as needed
[2017-09-01 21:36] VITALS: BP 103/68
== END 2017-09-01 21:36 | disposition home or self-care (01) ==
LOC: ER 18:29
DX: K59.00 Constipation, unspecified (principal); Z88.0 Allergy status to penicillin
CPT/HCPCS: 81001; 81025; 99283

== ENCOUNTER → 2017-12-22 | Outpatient (CLI) | payer MEDICAID ==
[2017-12-22 14:19] LABS: ABSOLUTE BASOPHILS # (AUTO) 0.1 10^3/uL (0.0-0.2); ABSOLUTE EOSINOPHILS # (AUTO) 0.2 10^3/uL (0.0-0.6); ABSOLUTE LYMPHOCYTES (AUTO) 2.3 10^3/uL (0.5-4.7); ABSOLUTE MONOCYTES (AUTO) 0.8 10^3/uL (0.1-1.4); BASOPHILS % (AUTO) 0.6 % (0-2); EOSINOPHILS % (AUTO) 2.2 % (0-6); HEMOGLOBIN 14.1 g/dL (12.0-15.5); LYMPHOCYTES % (AUTO) 28.2 % (13-45); MEAN CORPUSCULAR HEMOGLOBIN 28.4 pg (27.0-33.4); MEAN CORPUSCULAR HGB CONC 35.3 g/dL (32.0-36.0); MEAN CORPUSCULAR VOLUME 80 fl (80-97); MONOCYTES % (AUTO) 9.3 % (3-13); PLATELET COUNT 314 10^3/uL (150-450); RED BLOOD COUNT 4.97 10^6/uL (3.72-5.28); RED CELL DISTRIBUTION WIDTH 13.2 % (11.5-14.0); SEGMENTED NEUTROPHILS % (AUTO) 59.7 % (42-78); TOTAL CELLS COUNTED % (AUTO) 100 %; WHITE BLOOD COUNT 8.3 10^3/uL (4.0-10.5)
[2017-12-22 14:38] LABS: ALANINE AMINOTRANSFERASE 45 U/L (9-52); ALBUMIN 4.4 g/dL (3.5-5.0); ALKALINE PHOSPHATASE 55 U/L (38-126); ANION GAP 7 (5-19); ASPARTATE AMINO TRANSFERASE 33 U/L (14-36); BILIRUBIN,DIRECT 0.3 mg/dL (0.0-0.4); BILIRUBIN,TOTAL 0.7 mg/dL (0.2-1.3); BLOOD UREA NITROGEN 11 mg/dL (7-20); CALCIUM 9.7 mg/dL (8.4-10.2); CARBON DIOXIDE 28 mmol/L (22-30); CHLORIDE 105 mmol/L (98-107); GLUCOSE 88 mg/dL (75-110); POTASSIUM 4.1 mmol/L (3.6-5.0); SODIUM 139.8 mmol/L (137-145); TOTAL PROTEIN 7.7 g/dL (6.3-8.2)
[2017-12-24 07:47] LABS: HELICOBACTER PYLORI IGA AB <9.0 units (0.0-8.9); HELICOBACTER PYLORI IGG AB <0.80 (0.00-0.79); HELICOBACTER PYLORI IGM AB 12.6 units (0.0-8.9)
== END ==
LOC: OD 13:42
PROVIDERS: ATTEND Nurse Practitioner Acute Care
DX: R11.10 Vomiting, unspecified (principal)
CPT/HCPCS: 36415; 80053; 84443; 85025; 86677

== ENCOUNTER → 2018-02-03 | Outpatient (CLI) | payer SELFPAY ==
[2018-02-03 13:52] LABS: BACTERIA (WET MOUNT) 4+ BACTERIA SEEN; EPITHELIALS (WET MOUNT) 4+ EPITHELIALS SEEN; T.VAGINALIS (WET MOUNT) NO TRICHOMONAS SEEN; WBCS (WET MOUNT) 1+ WBCS SEEN; YEAST (WET MOUNT) YEAST SEEN
[2018-02-03 14:28] LABS: ALANINE AMINOTRANSFERASE 31 U/L (9-52); ALBUMIN 4.2 g/dL (3.5-5.0); ALKALINE PHOSPHATASE 67 U/L (38-126); ANION GAP 9 (5-19); ASPARTATE AMINO TRANSFERASE 27 U/L (14-36); BILIRUBIN,DIRECT 0.2 mg/dL (0.0-0.4); BILIRUBIN,TOTAL 0.5 mg/dL (0.2-1.3); BLOOD UREA NITROGEN 8 mg/dL (7-20); CALCIUM 9.2 mg/dL (8.4-10.2); CARBON DIOXIDE 27 mmol/L (22-30); CHLORIDE 107 mmol/L (98-107); GLUCOSE 91 mg/dL (75-110); POTASSIUM 4.3 mmol/L (3.6-5.0); SODIUM 142.9 mmol/L (137-145); TOTAL PROTEIN 7.4 g/dL (6.3-8.2)
== END ==
LOC: LAB 13:46
PROVIDERS: ATTEND Nurse Practitioner Family
DX: M54.5 Low back pain (principal); N89.8 Other specified noninflammatory disorders of vagina; R82.71 Bacteriuria
CPT/HCPCS: 36415; 80053; 87086; 87210

== ENCOUNTER 2018-05-12 07:25 | Day surgery (SDC) | payer MEDICAID ==
[2018-05-12] MEDS ORDERED: PROPOFOL INJ 200 MG/20 ML VIAL IV ONE (09:09)
[2018-05-12] MEDS ORDERED: ACETAMINOPHEN 325 MG TABLET PO PRN (09:56)
[2018-05-12] MEDS ORDERED: PROMETHAZINE HCL INJ 25 MG/1 ML VIAL INJ PRN (09:57)
[2018-05-12] MEDS ORDERED: SIMETHICONE 80 MG TAB.CHEW PO PRN (09:57)
[2018-05-12 10:56] VITALS: BP 112/75
--- NOTE | 2018-05-12 11:46 | Operative Report ---
Operative Report DATE OF SURGERY: 05/12/18 Operative Report: The risks benefits and alternatives of the procedure explained to the patient in detail and informed consent is obtained.A GIF Olympus video scope was inserted into the patient's mouth and hypopharynx, the esophagus is identified intubated and insufflated, the scope was then advanced through the esophagus stomach and duodenum, retroflexion maneuver is done, the esophagus stomach and first and second portions of the duodenum examined. PREOPERATIVE DIAGNOSIS: Nausea vomiting epigastric pain POSTOPERATIVE DIAGNOSIS: Gastritis status post biopsy rule out Helicobacter pylori. Duodenitis OPERATION: EGD with biopsy SURGEON: FABI DIAZ ANESTHESIA: LMAC TISSUE REMOVED OR ALTERED: As noted above. COMPLICATIONS: None. ESTIMATED BLOOD LOSS: None. INTRAOPERATIVE FINDINGS: As noted above. PROCEDURE: Patient tolerated the procedure well. No immediate postprocedure complications are noted. Patient discharged in good condition. Discharge date 05/12/2018. Discharge diet: Regular. Discharge activity: Regular. 2-3-week follow-up to discuss findings. Patient is instructed call the office or proceed to the emergency room should there be any further problems or questions. Wait on the pathology.
== END 2018-05-12 10:45 | disposition home or self-care (01) ==
LOC: OROUT 07:25
PROVIDERS: ATTEND Internal Medicine Gastroenterology
DX: K29.50 Unspecified chronic gastritis without bleeding (principal); K29.80 Duodenitis without bleeding; K21.9 Gastro-esophageal reflux disease without esophagitis; D50.9 Iron deficiency anemia, unspecified; Z79.899 Other long term (current) drug therapy; Z88.0 Allergy status to penicillin
CPT/HCPCS: 43239; 81025; 88342 ×2; 88305 ×2; J2704; 731

== ENCOUNTER 2018-05-15 18:21 | Emergency (ER) | payer SELFPAY ==
[2018-05-15] MEDS ORDERED: LORAZEPAM 1 MG TABLET PO ONE (19:38)
--- NOTE | 2018-05-15 19:40 | ER Document Report ---
ED General - General Chief Complaint: Anxiety Stated Complaint: POSSIBLE ANXIETY Time Seen by Provider: 05/15/18 19:31 Primary Care Provider: CONNOR LIRA DO [Primary Care Provider] - Follow up as needed Notes: Patient is a 23-year-old female with history of generalized anxiety and bipolar disorder that presents to the emergency department for chief complaint of feeling anxious. Patient states of the last 2 weeks she is been feeling on and off anxiety particular in the morning when she wakes up, and has been building up over the period of time she did go to try to see her psychiatrist office, but went to late and they were already closed over the past 3 days. She usually takes Latuda, trilletix, and Cogentin which she has been taking. She was previous and BuSpar and she states it was helping her but she was taken off of it but she is not sure why. She denies having any suicidal or homicidal ideations, denies any hallucinations auditory or visual. She just states she is been feeling anxious, she is not sure exactly why, but this is typical for her. Denies any recent fevers, chills, night sweats, chest pain, shortness of breath, difficulty breathing. She states she is felt heaviness in her chest particular when her anxiety gets worse, but denies having pain at this time. No other complaints. Past Medical History: Bipolar disorder, anxiety Past Surgical History: [place] tooth extraction Social History: Denies tobacco, alcohol or drug use Family History: Reviewed and noncontributory for presenting illness Allergies: Reviewed, see documented allergy list. REVIEW OF SYSTEMS: Other than noted above, the 12 point review of systems was reviewed with the patient and were negative, all pertinent findings are included in the HPI. PHYSICAL EXAMINATION: Vital signs reviewed, nursing noted reviewed. GENERAL: Well-appearing, well-nourished and in no acute distress. HEAD: Atraumatic, normocephalic. EYES: Eyes appear normal, sclera anicteric, conjunctiva are normal. ENT: Moist mucous membranes. NECK: Normal range of motion, supple without lymphadenopathy LUNGS: Breath sounds clear to auscultation bilaterally and equal. No wheezes rales or rhonchi. HEART: Regular rate and rhythm without murmurs EXTREMITIES: Nontender, good range of motion, no pitting or edema. NEUROLOGICAL: No focal neurological deficits. Moves all extremities spontaneously Motor and sensory grossly intact on exam. PSYCH: Mildly anxious on exam, but appropriately answering questions SKIN: Warm, Dry, normal turgor, no rashes or lesions noted on exposed skin TRAVEL OUTSIDE OF THE [place] IN LAST 30 DAYS: No - Related Data Allergies/Adverse Reactions: Penicillins Allergy (Unknown, Verified 05/15/18 18:28) unknown Past Medical History - Social History Smoking Status: Never Smoker Chew tobacco use (# tins/day): No Frequency of alcohol use: None Drug Abuse: None Family History: Reviewed & Not Pertinent Patient has suicidal ideation: No Patient has homicidal ideation: No - Past Medical History Cardiac Medical History: Denies: Hx Coronary Artery Disease, Hx Heart Attack, Hx Hypertension Pulmonary Medical History: Reports: Hx Asthma Denies: Hx Bronchitis, Hx COPD, Hx Pneumonia Neurological Medical History: Denies: Hx Cerebrovascular Accident, Hx Seizures Renal/ Medical History: Denies: Hx Peritoneal Dialysis Musculoskeletal Medical History: Denies Hx Arthritis Psychiatric Medical History: Reports: Hx Bipolar Disorder, Hx Depression Past Surgical History: Reports: Hx Oral Surgery. Denies: Hx Hysterectomy - Immunizations Immunizations up to date: Yes Hx Diphtheria, Pertussis, Tetanus Vaccination: Yes Physical Exam - Vital signs Vitals: Temp Pulse Resp BP Pulse Ox 98.9 F 86 16 104/59 L 98 05/15/18 18:52 05/15/18 18:52 05/15/18 18:52 05/15/18 18:52 05/15/18 18:52 Course - Re-evaluation Re-evalutation: Patient seen and examined vital signs reviewed. Patient was evaluated and treated as appropriate for the patient's presenting symptoms and complaint, with consideration of any critical or life threatening conditions that may be associated with their obtained history and exam as noted above. Patient was treated with p.o. Ativan 2 mg The patient was re-evaluated and was stable Evaluation was most consistent with anxiety, patient be discharged home with a prescription for 1 week of BuSpar 5 mg twice daily, advised to follow-up with her psychiatrist on Thursday, patient was agreeable to this plan of care and was discharged home Plan of care was discussed with the patient at this point, after careful consideration I feel that that patient can be discharged from the emergency department, the patient was educated treatments and reasons to return to the emergency department based on their presumed diagnosis as noted above, they were advised to followup with a primary care physician in 2-3 days. Patient was agreeable to plan of care. *Note is created using voice recognition software and may contain spelling, syntax or grammatical errors. - Vital Signs Vital signs: Temp Pulse Resp BP Pulse Ox 98.4 F 68 17 108/58 L 98 05/15/18 19:48 05/15/18 19:48 05/15/18 19:48 05/15/18 19:48 05/15/18 19:48 - EKG Interpretation by Me Additional EKG results interpreted by me: EKG demonstrates normal sinus rhythm with normal rate, normal axis, normal intervals, no evidence of acute ischemia in this EKG, compared with prior EKG without change. Discharge - Discharge Clinical Impression: Anxiety Condition: Stable Disposition: HOME, SELF-CARE Instructions: Anxiety ([facility]) Additional Instructions: Please follow-up with your psychiatrist office, call for an appointment on Thursday or just walk into the clinic, to be reevaluated, you can take the BuSpar twice daily starting tomorrow, continue all of your other medications as directed. Prescriptions: Buspirone HCl [Buspar 5 mg Tablet] 1 tab PO BID #14 tab Referrals: CONNOR LIRA DO [Primary Care Provider] - Follow up as needed
[2018-05-15 19:54] VITALS: BP 108/58
--- NOTE | 2018-05-15 21:58 | EKG REPORT ---
SEVERITY:- NORMAL ECG - SINUS RHYTHM : Confirmed by: Christian Shelton MD 15-May-2018 21:57:55
== END 2018-05-15 19:54 | disposition home or self-care (01) ==
LOC: ER 18:21
DX: F41.1 Generalized anxiety disorder (principal); F31.9 Bipolar disorder, unspecified; Z79.899 Other long term (current) drug therapy; J45.909 Unspecified asthma, uncomplicated
CPT/HCPCS: 93005; 93010; 99283

== ENCOUNTER 2018-05-22 13:57 | Emergency (ER) | payer MEDICAID ==
--- NOTE | 2018-05-22 14:19 | ER Document Report ---
ED Medical Screen (RME) - General Chief Complaint: Anxiety Stated Complaint: ANXIETY Time Seen by Provider: 05/22/18 14:15 Primary Care Provider: CONONR LIRA DO [Primary Care Provider] - Follow up as needed Mode of Arrival: Ambulatory Information source: Patient, Parent TRAVEL OUTSIDE OF THE [place] IN LAST 30 DAYS: No - HPI Patient complains to provider of: anxiety; abdominal pain Onset: Last week - pt. with h/o anxiety and panic attackss placed on meds but not working. Denies SI, HI. Also RUQ abd pain - Related Data Allergies/Adverse Reactions: Penicillins Allergy (Unknown, Verified 05/15/18 18:28) unknown Past Medical History - Past Medical History Cardiac Medical History: Denies: Hx Coronary Artery Disease, Hx Heart Attack, Hx Hypertension Pulmonary Medical History: Reports: Hx Asthma Denies: Hx Bronchitis, Hx COPD, Hx Pneumonia Neurological Medical History: Denies: Hx Cerebrovascular Accident, Hx Seizures Renal/ Medical History: Denies: Hx Peritoneal Dialysis Musculoskeltal Medical History: Denies Hx Arthritis Psychiatric Medical History: Reports: Hx Bipolar Disorder, Hx Depression Past Surgical History: Reports: Hx Oral Surgery. Denies: Hx Hysterectomy - Immunizations Immunizations up to date: Yes Hx Diphtheria, Pertussis, Tetanus Vaccination: Yes Physical Exam - Vital signs Vitals: Temp Pulse Resp BP Pulse Ox 99.2 F 87 18 109/55 L 97 05/22/18 14:01 05/22/18 14:01 05/22/18 14:01 05/22/18 14:01 05/22/18 14:01 Course - Vital Signs Vital signs: Temp Pulse Resp BP Pulse Ox 99.2 F 87 18 109/55 L 97 05/22/18 14:01 05/22/18 14:01 05/22/18 14:01 05/22/18 14:01 05/22/18 14:01 Doctor's Discharge - Discharge Referrals: CONNOR LIRA DO [Primary Care Provider] - Follow up as needed
[2018-05-22 15:03] LABS: APPEARANCE,URINE SLIGHTLY-CLOUDY; BILIRUBIN,URINE NEGATIVE (NEGATIVE); COLOR,URINE YELLOW; GLUCOSE, URINE NEGATIVE (NEGATIVE); KETONES,URINE NEGATIVE (NEGATIVE); LEUKOCYTE ESTERASE,URINE TRACE (NEGATIVE); NITRITE,URINE NEGATIVE (NEGATIVE); PROTEIN,URINE NEGATIVE (NEGATIVE); URINE SPECIFIC GRAVITY 1.013; UROBILINOGEN,URINE NEGATIVE mg/dL (<2.0)
[2018-05-22 15:05] LABS: ABSOLUTE BASOPHILS # (AUTO) 0.1 10^3/uL (0.0-0.2); ABSOLUTE EOSINOPHILS # (AUTO) 0.1 10^3/uL (0.0-0.6); ABSOLUTE LYMPHOCYTES (AUTO) 1.8 10^3/uL (0.5-4.7); ABSOLUTE MONOCYTES (AUTO) 0.7 10^3/uL (0.1-1.4); ABSOLUTE NEUT (AUTO) 4.3 10^3/uL (1.7-8.2); BASOPHILS % (AUTO) 0.9 % (0-2); EOSINOPHILS % (AUTO) 0.8 % (0-6); HEMATOCRIT 41.9 % (36.0-47.0); HEMOGLOBIN 14.9 g/dL (12.0-15.5); LYMPHOCYTES % (AUTO) 25.6 % (13-45); MEAN CORPUSCULAR HGB CONC 35.5 g/dL (32.0-36.0); MEAN CORPUSCULAR VOLUME 82 fl (80-97); MONOCYTES % (AUTO) 10.4 % (3-13); PLATELET COUNT 318 10^3/uL (150-450); RED BLOOD COUNT 5.14 10^6/uL (3.72-5.28); RED CELL DISTRIBUTION WIDTH 13.2 % (11.5-14.0); SEGMENTED NEUTROPHILS % (AUTO) 62.3 % (42-78); TOTAL CELLS COUNTED % (AUTO) 100 %; WHITE BLOOD COUNT 6.9 10^3/uL (4.0-10.5)
[2018-05-22 15:17] LABS: ALANINE AMINOTRANSFERASE 20 U/L (9-52); ALBUMIN 4.6 g/dL (3.5-5.0); ALKALINE PHOSPHATASE 60 U/L (38-126); ANION GAP 10 (5-19); ASPARTATE AMINO TRANSFERASE 24 U/L (14-36); BILIRUBIN,DIRECT 0.3 mg/dL (0.0-0.4); BILIRUBIN,TOTAL 0.4 mg/dL (0.2-1.3); BLOOD UREA NITROGEN 7 mg/dL (7-20); CALCIUM 9.7 mg/dL (8.4-10.2); CARBON DIOXIDE 28 mmol/L (22-30); CHLORIDE 103 mmol/L (98-107); GLUCOSE 103 mg/dL (75-110); POTASSIUM 4.5 mmol/L (3.6-5.0); SODIUM 141.4 mmol/L (137-145); TOTAL PROTEIN 7.8 g/dL (6.3-8.2)
[2018-05-22 15:19] LABS: URINE AMPHETAMINES SCREEN NEGATIVE; URINE BARBITURATES SCREEN NEGATIVE; URINE BENZODIAZEPINES SCREEN NEGATIVE; URINE COCAINE SCREEN NEGATIVE; URINE MARIJUANA (THC) SCREEN NEGATIVE; URINE METHADONE SCREEN NEGATIVE; URINE PHENCYCLIDINE SCREEN NEGATIVE
[2018-05-22 15:34] LABS: ALCOHOL < 10 mg/dL (NONE DETECTED)
--- NOTE | 2018-05-22 15:53 | ER Document Report ---
ED General <SANDY LIPSCOMB - Last Filed: 05/22/18 16:02> - General Mode of Arrival: Ambulatory Information source: Patient TRAVEL OUTSIDE OF THE [place] IN LAST 30 DAYS: No - HPI Patient complains to provider of: Increased anxiety despite medication changes. Chronic recurrent abdominal Onset: Other - April 23 Onset/Duration: Persistent, Worse Quality of pain: No pain Severity: Moderate Associated symptoms: denies: None Exacerbated by: Denies Relieved by: Denies Similar symptoms previously: No Recently seen / treated by doctor: No <JANE VILLALOBOS - Last Filed: 05/22/18 17:24> - General Chief Complaint: Anxiety Stated Complaint: ANXIETY Time Seen by Provider: 05/22/18 14:15 Primary Care Provider: Juan Miguel Vanessa [Outside] - Follow up in 3-5 days CONNOR LIRA DO [Primary Care Provider] - Follow up as needed - HPI Notes: 23-year-old female presents with mom chief complaint of anxiety and panic attacks which are manifested as shortness of breath, or heart fluttering, and and fidgety behavior. Thursday she had an increase in her BuSpar which is not helping. She does not have any suicidal or homicidal she has already been evaluated by the behavioral health team. Patient also has right upper quadrant abdominal pain which has been investigated and she has been referred to a specialist for. She has had a lot of vomiting. The Zofran has helped with this. The [facility] provider has ordered the appropriate lab work and ultrasound to evaluate her gallbladder. (JANE VILLALOBOS) - Related Data Allergies/Adverse Reactions: Penicillins Allergy (Unknown, Verified 05/15/18 18:28) unknown Past Medical History - General Information source: Patient, Parent - Social History Smoking Status: Never Smoker Family History: Reviewed & Not Pertinent Patient has suicidal ideation: No Patient has homicidal ideation: No - Past Medical History Cardiac Medical History: Denies: Hx Coronary Artery Disease, Hx Heart Attack, Hx Hypertension Pulmonary Medical History: Reports: Hx Asthma Denies: Hx Bronchitis, Hx COPD, Hx Pneumonia Neurological Medical History: Denies: Hx Cerebrovascular Accident, Hx Seizures Renal/ Medical History: Denies: Hx Peritoneal Dialysis Musculoskeletal Medical History: Denies Hx Arthritis Psychiatric Medical History: Reports: Hx Bipolar Disorder, Hx Depression Past Surgical History: Reports: Hx Oral Surgery. Denies: Hx Hysterectomy - Immunizations Immunizations up to date: Yes Hx Diphtheria, Pertussis, Tetanus Vaccination: Yes <JANE VILLALOBOS Aimee - Last Filed: 05/22/18 17:24> Review of Systems <JANE VILLALOBOS - Last Filed: 05/22/18 17:24> - Review of Systems Notes: Constitutional: No fevers. No chills. EENT: No eye redness. No eye pain. No ear pain. No sore throat. Cardiovascular: No chest pain. No palpitations. Respiratory: No cough. No shortness of breath. No respiratory distress. Gastrointestinal: Right upper quadrant abdominal pain with nausea and vomiting Genitourinary: Atraumatic. No lesions. No pain. No discharge. Musculoskeletal: Atraumatic. No swelling. No deformities. Skin: No rash or lesions. Lymphatic: No swollen lymph nodes. Neurologic: No headache. No syncope. Psychiatric: No suicidal or homicidal ideation. (JANE VILLALOBOS) Physical Exam <JANE VILLALOBOS Aimee - Last Filed: 05/22/18 17:24> - Vital signs Vitals: Temp Pulse Resp BP Pulse Ox 99.2 F 87 18 109/55 L 97 05/22/18 14:01 05/22/18 14:01 05/22/18 14:01 05/22/18 14:01 05/22/18 14:01 - Notes Notes: General: Well-developed, well-nourished. In no acute distress. Non-toxic appearing. Cardiac: Well-perfused. Regular rate and rhythm. No murmurs, rubs, or gallops. Pulmonary: No respiratory distress. No cyanosis. Bilateral lung fiels are clear to auscultation. Abdominal: Non-distended. Non-rigid. Bowels sounds are present in all four quadrants. No guarding or rebound. HEENT: Head is atraumatic. Conjunctivae not reddened. No tearing. PERRL. EOMI. Orbits atraumatic. No periorbital swelling or erythema. Oropharynx is without erythema, swelling, or exudates. Neck: Supple. No adenopathy. No meningismus. Dermatologic: Warm with good turgor. No rash. Atraumatic. Chest: Atraumatic. No chest wall tenderness to palpation. Musculoskeletal: Moves all extremities well. No range of motion deficits. no muscular or joint tenderness. No paraspinal muscle tenderness. no midline spinal tenderness or step-off. Genitourinary: Examination deferred Neurologic: No gross neurologic deficits. Psychiatric: Normal mood. (JANE VILLALOBOS) Course - Laboratory Result Diagrams: 05/22/18 14:20 05/22/18 14:20 <SANDY LIPSCOMB - Last Filed: 05/22/18 16:02> - Laboratory Result Diagrams: 05/22/18 14:20 05/22/18 14:20 - Diagnostic Test Radiology reviewed: Reports reviewed <JANE VILLALOBOS - Last Filed: 05/22/18 17:24> - Re-evaluation Re-evalutation: 05/22/18 15:53 Behavioral health team will give recommendations on medication changes. Lab wo rk so far is unremarkable. Ultrasound pending. 05/22/18 17:20 We have recommendations from behavioral health. Patient will need a prescription for Zyprexa 2.5 mg twice daily. The rest of the recommendations will be indicated in the patient's discharge instructions. No abnormalities in the gallbladder ultrasound. Labs all look good. Patient will follow-up as needed with outpatient specialist for that. (JANE VILLALOBOS) - Vital Signs Vital signs: Temp Pulse Resp BP Pulse Ox 99.2 F 87 18 109/55 L 97 05/22/18 14:01 05/22/18 14:01 05/22/18 14:01 05/22/18 14:01 05/22/18 14:01 - Laboratory Laboratory results interpreted by me: 05/22/18 14:20 Ur Leukocyte Esterase TRACE H Discharge <SANDY LIPSCOMB - Last Filed: 05/22/18 16:02> <JANE VILLALOBOS - Last Filed: 05/22/18 17:24> - Discharge Clinical Impression: Anxiety, Chronic abdominal pain Nausea and vomiting Qualifiers: Vomiting type: unspecified Vomiting Intractability: non-intractable Qualified Code(s): R11.2 - Nausea with vomiting, unspecified Condition: Stable Disposition: HOME, SELF-CARE Instructions: Abdominal Pain ([facility]), Antinausea Medication ([facility]), Anxiety ([facility]) Additional Instructions: You have been evaluated both medical and behavioral health teams and been deemed appropriate for discharge. Medication recommendations have been provided as follows: Please discontinue home medication of Cogentin and BuSpar Decrease Latuda to 20 mg daily for 5 days then discontinue Once Latuda is discontinued please increase your Trentellix to 20 mg daily Please add Zyprexa 2.5 mg twice daily Follow-up with your outpatient mental health provider in 3-5 days for continued outpatient mental health services. Panic Attack The cause of panic attacks is unknown. Symptoms can include chest pain, shortness of breath, palpitations, sweats, and a sense of smothering or impending doom. In time, the panic attacks can lead to generalized anxiety and phobias. Because the symptoms can mimic heart attack, pulmonary embolism, and other serious diseases, the physician has evaluated you for these conditions. There is no evidence of a serious problem. An acute panic attack usually goes away by itself without treatment. A severe attack can be treated with medicine to calm you. Long-term, antide pressant medicines may help prevent attacks. Counselling can also be very beneficial in dealing with panic attacks. Panic attacks are less likely if you are getting regular exercise, proper diet, and plenty of sleep. It's normal for panic attacks to cause many frightening symptoms. However, you should call or return if your symptoms change significantly or if you are worsening. Prescriptions: Olanzapine [Zyprexa 2.5 Mg Tablet] 2.5 mg PO BID 7 Days #14 tablet Ondansetron [Zofran Odt 4 mg Tablet] 1 - 2 tab PO Q4H PRN #15 tab.rapdis PRN Reason: For Nausea/Vomiting Referrals: CONNOR LIRA DO [Primary Care Provider] - Follow up as needed [facility] Rasheeda [Outside] - Follow up in 3-5 days
--- NOTE | 2018-05-22 16:02 | PSYCHOLOGICAL NOTE ---
Psych Note - Psych Note Date seen by psych provider: 05/22/18 Time seen by psych provider: 15:00 Psych Note: Reason for Consult: Anixety/ Panic attacks Consent permissions: Mother at bedside per patient's request Patient presents with anxiety and panic attacks placed on meds but not working. Patient discloses that she has been having anxiety and panic attacks every day since she moved into her own place back in April 23. She reports that she is also had additional increase of stress or because she is has gotten a job but is only been able to go to 1 day because she is been very sick. Patient has has been unable to eat and vomiting daily. She had an endoscopy and has a scheduled ultrasound on her gallbladder on 06/04/2018. Patient reports that her vomiting has been controlled since she is started taking Zofran. Patient has been able to go since last Thursday without any vomiting. Patient's mother discloses that the patient moved into her brother's empty home which is right next to her parental mother's) home. She disclosed that the patient can come to her parents home at any time day or night. This is the first time the patient is ever lived alone and is clearly been very stressful. She reports the patient is under a lot of stress because of other situations such as getting a job and being very sick. 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 She reports the patient is adopted and has always had issues of attaching very quickly to any when she meets. Patient is alert and orientated to person, place, time and circumstance. Mood is anxious with congruent affect as evidenced by rocking and wringing of hands. Patient denies suicidal and homicidal ideation. Delusions are absent behaviors congruent with an intact reality based presentation i.e. organized and linear thought process. Eye contact was well-maintained. Conversational speech is within normal rate, tone and prosody. Intellectual ability appears to be within the average range. Attention and concentration are fair. Insight, judgment, impulse control are fair. Medication recommendations per [facility]'s contracted psychiatrist Dr. 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 Patient discloses increase in anxiety and panic attacks since moving to her own place for the first time ever. Patient denies any thoughts of wanting to harm herself or others. She is not demonstrating any behaviors indicating she is responding to internal stimuli. Patient's current presentation could be directly correlated with new living arrangements as patient has a history of attachment disorder. Patient's mother lives right next door to the patient if patient needs her. Medication rec medications have been provided. Patient is recommended to follow-up with her outpatient mental health provider. Dr. Perez was consulted and the care management of this patient; attending physicians in agreement with recommendations and disposition.
--- NOTE | 2018-05-22 16:47 | RADIOLOGY REPORT (SQ) ---
EXAM DESCRIPTION: U/S ABDOMEN LIMITED W/O DOP COMPLETED DATE/TIME: 05/22/2018 4:08 pm REASON FOR STUDY: RUQ pain COMPARISON: None. TECHNIQUE: Dynamic and static grayscale images acquired of the abdomen and recorded on PACS. Additio nal selected color Doppler and spectral images recorded. LIMITATIONS: None. FINDINGS: PANCREAS: No masses. Visualized pancreatic duct normal caliber. LIVER: No masses. Echotexture normal. LIVER VASCULATURE: Normal directional flow of the main portal vein and hepatic veins. GALLBLADDER: No stones. Normal wall thickness. No pericholecystic fluid. ULTRASOUND-DETECTED BARAJAS'S SIGN: Negative. INTRAHEPATIC DUCTS AND COMMON DUCT: CBD and intrahepatic ducts normal caliber. No filling defects. INFERIOR VENA CAVA: Normal flow. AORTA: No aneurysm. RIGHT KIDNEY: Normal size. Normal echogenicity. No solid or suspicious masses. No hydronephrosis. No calcifications. PERITONEAL AND RIGHT PLEURAL SPACE: No ascites or effusions. OTHER: No other significant findings. IMPRESSION: NORMAL RIGHT UPPER QUADRANT ULTRASOUND. TECHNICAL DOCUMENTATION: JOB ID: [id number] [employer]- All Rights Reserved Reading location - IP/workstation name: [email or web address]
[2018-05-22 18:01] VITALS: BP 114/62
== END 2018-05-22 17:48 | disposition home or self-care (01) ==
LOC: ER 13:57
DX: F41.9 Anxiety disorder, unspecified (principal); F41.0 Panic disorder [episodic paroxysmal anxiety]; Z79.899 Other long term (current) drug therapy; R11.2 Nausea with vomiting, unspecified; R10.11 Right upper quadrant pain; G89.29 Other chronic pain; J45.909 Unspecified asthma, uncomplicated; F31.9 Bipolar disorder, unspecified; Z60.2 Problems related to living alone; Z88.0 Allergy status to penicillin
CPT/HCPCS: 36415; 76705; 80053; 80307; 81001; 84443; 84702; 85025; 99284

== ENCOUNTER → 2018-06-04 | Outpatient (CLI) | payer MEDICAID ==
--- NOTE | 2018-06-04 09:02 | RADIOLOGY REPORT (SQ) ---
EXAM DESCRIPTION: U/S ABDOMEN LIMITED W/O DOP COMPLETED DATE/TIME: 06/04/2018 8:52 am REASON FOR STUDY: N/V (R11.2) R11.2 NAUSEA WITH VOMITING, UNSPECIFIED COMPARISON: None. TECHNIQUE: Dynamic and static grayscale images acquired of the abdomen and recorded on PACS. Additio nal selected color Doppler and spectral images recorded. LIMITATIONS: None. FINDINGS: PANCREAS: No masses. Visualized pancreatic duct normal caliber. LIVER: The liver measures 15.6 cm, normal size. Mild fatty liver. LIVER VASCULATURE: Normal directional flow of the main portal vein and hepatic veins. GALLBLADDER: No stones. The gallbladder wall measures 1.1 mm, normal wall thickness. No pericholecys tic fluid. ULTRASOUND-DETECTED BARAJAS'S SIGN: Negative. INTRAHEPATIC DUCTS AND COMMON DUCT: CBD measures 4.1 mm in diameter, normal. The intrahepatic ducts normal caliber. No filling defects. INFERIOR VENA CAVA: Normal flow. AORTA: No aneurysm. RIGHT KIDNEY: The right kidney measures 10.5 cm in length, normal size. Normal echogenicity. No norris d or suspicious masses. No hydronephrosis. No calcifications. PERITONEAL AND RIGHT PLEURAL SPACE: No ascites or effusions. OTHER: No other significant findings. IMPRESSION: 1. Mild fatty liver. 2. Examination is otherwise unremarkable sonographically. TECHNICAL DOCUMENTATION: JOB ID: [id number]- All Rights Reserved Reading location - IP/workstation name: [email or web address]
--- NOTE | 2018-06-04 12:17 | RADIOLOGY REPORT (SQ) ---
EXAM DESCRIPTION: NM HIDA SCAN WITH CCK COMPLETED DATE/TIME: 06/04/2018 11:33 am REASON FOR STUDY: N/V (R11.2) R11.2 NAUSEA WITH VOMITING, UNSPECIFIED COMPARISON: None. RADIONUCLIDE AND DOSE: DOSAGE RADIONUCLIDE: 4.8 millicuries Tc99m Mebrofenin. DOSAGE CCK: 1.4 micrograms. DOSAGE MORPHINE: Not required. The route of agent administration: Intravenous TECHNIQUE: Serial imaging right upper quadrant up to 60 minutes following injection of radionuclide. CCK injected after gallbladder visualized. LIMITATIONS: None. FINDINGS: LIVER: Normal visualization without areas of photopenia. INTRAHEPATIC BILE DUCTS: Normal size and no delay in visualization. COMMON BILE DUCT: Normal without dilatation. GALLBLADDER: Normal visualization. Calculated ejection fraction of 3%. Normal range is greater jossy n 35%. PHYSICAL RESPONSE: Patients presenting complaint were reproduced. OTHER: No other significant finding. IMPRESSION: 1. Abnormal study. Gallbladder ejection fraction of 3% (normal range is greater than 3 5%). Evidence for biliary dyskinesia. 2. The patient's presenting complaints were reproduced following CCK administration. TECHNICAL DOCUMENTATION: JOB ID: [id number] [employer]- All Rights Reserved Reading location - IP/workstation name: [email or web address]
== END ==
LOC: RAD 07:58
PROVIDERS: ATTEND Internal Medicine Gastroenterology
DX: R11.2 Nausea with vomiting, unspecified (principal)
CPT/HCPCS: 76705; 78227; J2805; A9537

== ENCOUNTER → 2018-08-09 | Outpatient (CLI) | payer MEDICAID ==
[2018-08-09 14:41] LABS: HEMATOCRIT 40.5 % (36.0-47.0); HEMOGLOBIN 13.5 g/dL (12.0-15.5); MEAN CORPUSCULAR HEMOGLOBIN 28.2 pg (27.0-33.4); MEAN CORPUSCULAR HGB CONC 33.5 g/dL (32.0-36.0); MEAN CORPUSCULAR VOLUME 84 fl (80-97); PLATELET COUNT 291 10^3/uL (150-450); RED CELL DISTRIBUTION WIDTH 14.3 % (11.5-14.0); WHITE BLOOD COUNT 6.2 10^3/uL (4.0-10.5)
[2018-08-09 14:59] LABS: ALANINE AMINOTRANSFERASE 23 U/L (9-52); ALBUMIN 4.3 g/dL (3.5-5.0); ALKALINE PHOSPHATASE 63 U/L (38-126); ANION GAP 9 (5-19); ASPARTATE AMINO TRANSFERASE 26 U/L (14-36); BILIRUBIN,DIRECT 0.2 mg/dL (0.0-0.4); BILIRUBIN,TOTAL 0.4 mg/dL (0.2-1.3); BLOOD UREA NITROGEN 9 mg/dL (7-20); CALCIUM 9.4 mg/dL (8.4-10.2); CARBON DIOXIDE 28 mmol/L (22-30); CHLORIDE 104 mmol/L (98-107); GLUCOSE 87 mg/dL (75-110); POTASSIUM 4.2 mmol/L (3.6-5.0); SODIUM 140.8 mmol/L (137-145); TOTAL PROTEIN 7.5 g/dL (6.3-8.2)
== END ==
LOC: OD 14:08
PROVIDERS: ATTEND Surgery
DX: Z01.818 Encounter for other preprocedural examination (principal); K82.9 Disease of gallbladder, unspecified; F41.9 Anxiety disorder, unspecified; F31.9 Bipolar disorder, unspecified; Z78.9 Other specified health status
CPT/HCPCS: 36415; 80053; 85027

== ENCOUNTER 2018-08-12 11:27 | Emergency (ER) | payer MEDICAID ==
[2018-08-12] MEDS ORDERED: NORMAL SALINE 1000 ML 1,000 ML IV ONE (12:15)
--- NOTE | 2018-08-12 12:15 | ER Document Report ---
ED Medical Screen (RME) - General Chief Complaint: Abdominal Pain Stated Complaint: ABDOMINAL PAIN Time Seen by Provider: 08/12/18 12:12 Primary Care Provider: SLOANE MCCLURE MD [Primary Care Provider] - Follow up as needed Mode of Arrival: Ambulatory Information source: Patient Notes: Patient has a history of poorly functioning gallbladder and is scheduled for mary rgery August 27. Patient complains of a flareup of her abdominal pain that started 8 AM today. Patient does report nausea and denies any fever. I have greeted and performed a rapid initial assessment of this patient. A comprehensive ED assessment and evaluation of the patient, analysis of test results and completion of the medical decision making process will be conducted by additional ED providers. TRAVEL OUTSIDE OF THE [place] IN LAST 30 DAYS: No - Related Data Allergies/Adverse Reactions: Penicillins Allergy (Unknown, Verified 08/12/18 12:10) unknown Past Medical History - Past Medical History Cardiac Medical History: Denies: Hx Coronary Artery Disease, Hx Heart Attack, Hx Hypertension Pulmonary Medical History: Reports: Hx Asthma Denies: Hx Bronchitis, Hx COPD, Hx Pneumonia Neurological Medical History: Denies: Hx Cerebrovascular Accident, Hx Seizures Renal/ Medical History: Denies: Hx Peritoneal Dialysis Musculoskeltal Medical History: Denies Hx Arthritis Psychiatric Medical History: Reports: Hx Bipolar Disorder, Hx Depression Past Surgical History: Reports: Hx Oral Surgery. Denies: Hx Hysterectomy - Immunizations Immunizations up to date: Yes Hx Diphtheria, Pertussis, Tetanus Vaccination: Yes Physical Exam - Vital signs Vitals: Temp Pulse Resp BP Pulse Ox 98.2 F 82 14 91/48 L 98 08/12/18 11:35 08/12/18 11:35 08/12/18 11:35 08/12/18 11:35 08/12/18 11:35 - Abdominal Tenderness: Tender - Right upper quadrant Course - Vital Signs Vital signs: Temp Pulse Resp BP Pulse Ox 98.2 F 82 14 91/48 L 98 08/12/18 11:35 08/12/18 11:35 08/12/18 11:35 08/12/18 11:35 08/12/18 11:35 Doctor's Discharge - Discharge Referrals: SLOANE MCCLURE MD [Primary Care Provider] - Follow up as needed
[2018-08-12 12:44] LABS: ABSOLUTE BASOPHILS # (AUTO) 0.1 10^3/uL (0.0-0.2); ABSOLUTE EOSINOPHILS # (AUTO) 0.1 10^3/uL (0.0-0.6); ABSOLUTE LYMPHOCYTES (AUTO) 2.3 10^3/uL (0.5-4.7); ABSOLUTE MONOCYTES (AUTO) 0.7 10^3/uL (0.1-1.4); ABSOLUTE NEUT (AUTO) 4.4 10^3/uL (1.7-8.2); EOSINOPHILS % (AUTO) 1.7 % (0-6); HEMATOCRIT 43.1 % (36.0-47.0); HEMOGLOBIN 14.3 g/dL (12.0-15.5); LYMPHOCYTES % (AUTO) 29.9 % (13-45); MEAN CORPUSCULAR HEMOGLOBIN 28.2 pg (27.0-33.4); MEAN CORPUSCULAR HGB CONC 33.3 g/dL (32.0-36.0); MEAN CORPUSCULAR VOLUME 85 fl (80-97); MONOCYTES % (AUTO) 8.8 % (3-13); PLATELET COUNT 305 10^3/uL (150-450); RED BLOOD COUNT 5.08 10^6/uL (3.72-5.28); RED CELL DISTRIBUTION WIDTH 14.2 % (11.5-14.0); SEGMENTED NEUTROPHILS % (AUTO) 58.6 % (42-78); TOTAL CELLS COUNTED % (AUTO) 100 %; WHITE BLOOD COUNT 7.6 10^3/uL (4.0-10.5)
[2018-08-12 12:51] LABS: APPEARANCE,URINE CLEAR; BILIRUBIN,URINE NEGATIVE (NEGATIVE); COLOR,URINE YELLOW; GLUCOSE, URINE NEGATIVE (NEGATIVE); KETONES,URINE NEGATIVE (NEGATIVE); LEUKOCYTE ESTERASE,URINE TRACE (NEGATIVE); NITRITE,URINE NEGATIVE (NEGATIVE); PROTEIN,URINE NEGATIVE (NEGATIVE); URINE SPECIFIC GRAVITY 1.011; UROBILINOGEN,URINE NEGATIVE mg/dL (<2.0)
[2018-08-12 13:11] LABS: ALANINE AMINOTRANSFERASE 24 U/L (9-52); ALBUMIN 4.4 g/dL (3.5-5.0); ALKALINE PHOSPHATASE 59 U/L (38-126); ANION GAP 10 (5-19); ASPARTATE AMINO TRANSFERASE 27 U/L (14-36); BILIRUBIN,DIRECT 0.2 mg/dL (0.0-0.4); BILIRUBIN,TOTAL 0.4 mg/dL (0.2-1.3); BLOOD UREA NITROGEN 9 mg/dL (7-20); CALCIUM 9.6 mg/dL (8.4-10.2); CARBON DIOXIDE 29 mmol/L (22-30); CHLORIDE 104 mmol/L (98-107); LIPASE 375.3 U/L (23-300); SODIUM 143.3 mmol/L (137-145); TOTAL PROTEIN 8.1 g/dL (6.3-8.2)
[2018-08-12 13:26] LABS: GLUCOSE 53 mg/dL (75-110)
[2018-08-12] MEDS ORDERED: DEXTROSE 50%-WATER 25 GM/50 ML DISP.SYRIN IV ONE (13:34)
[2018-08-12] MEDS ORDERED: DICYCLOMINE HCL 20 MG TABLET PO ONE (16:23)
[2018-08-12 16:38] VITALS: BP 101/64
--- NOTE | 2018-08-12 16:41 | ER Document Report ---
ED GI/ - General Chief Complaint: Abdominal Pain Stated Complaint: ABDOMINAL PAIN Time Seen by Provider: 08/12/18 12:12 Primary Care Provider: SLOANE MANZANO MD [ACTIVE STAFF] - Follow up as needed Mode of Arrival: Ambulatory Notes: Patient is a 21-year-old female comes emergency room complaining of right upper quadrant pain with radiation to the back. Patient states that it started early this morning when she woke up. Patient has a history of these gallbladder attacks and is scheduled to have a cholecystectomy done by Dr. Manzano on 27 August. Patient denies any nausea or vomiting she is had no fever. She states that the pain is more like spasms i.e. contractions. She does state that since being in the emergency room all of her pain is dissipated. She had a HIDA scan done rec ently that showed a EF of about 3%. TRAVEL OUTSIDE OF THE [place] IN LAST 30 DAYS: No - HPI Patient complains to provider of: Abdominal pain Onset: This morning Timing/Duration: Sudden, Intermittent, Better Quality of pain: Cramping Severity at maximum: Moderate Pain Level: 3 Location: RUQ, Right flank Vaginal bleeding (Compared to normal period): None - Related Data Allergies/Adverse Reactions: Penicillins Allergy (Unknown, Verified 08/12/18 12:10) unknown Past Medical History - General Information source: Patient - Social History Smoking Status: Never Smoker Cigarette use (# per day): No Chew tobacco use (# tins/day): No Smoking Education Provided: No Frequency of alcohol use: None Drug Abuse: None Family History: Reviewed & Not Pertinent Patient has suicidal ideation: No Patient has homicidal ideation: No - Past Medical History Cardiac Medical History: Denies: Hx Coronary Artery Disease, Hx Heart Attack, Hx Hypertension Pulmonary Medical History: Reports: Hx Asthma Denies: Hx Bronchitis, Hx COPD, Hx Pneumonia Neurological Medical History: Denies: Hx Cerebrovascular Accident, Hx Seizures Renal/ Medical History: Denies: Hx Peritoneal Dialysis Musculoskeletal Medical History: Denies Hx Arthritis Psychiatric Medical History: Reports: Hx Bipolar Disorder, Hx Depression Past Surgical History: Reports: Hx Oral Surgery. Denies: Hx Hysterectomy - Immunizations Immunizations up to date: Yes Hx Diphtheria, Pertussis, Tetanus Vaccination: Yes Review of Systems - Review of Systems Constitutional: No symptoms reported EENT: No symptoms reported Cardiovascular: No symptoms reported Respiratory: No symptoms reported Gastrointestinal: See HPI, Abdominal pain Genitourinary: No symptoms reported Female Genitourinary: No symptoms reported Musculoskeletal: No symptoms reported Skin: No symptoms reported Hematologic/Lymphatic: No symptoms reported Neurological/Psychological: No symptoms reported -: Yes All other systems reviewed and negative Physical Exam - Vital signs Vitals: Temp Pulse Resp BP Pulse Ox 98.2 F 82 14 91/48 L 98 08/12/18 11:35 08/12/18 11:35 08/12/18 11:35 08/12/18 11:35 08/12/18 11:35 Interpretation: Hypotensive - Notes Notes: PHYSICAL EXAMINATION: GENERAL; patient is a well-nourished well-developed 23-year-old obese female who is in no apparent distress on physical exam this afternoon. Patient actually looks good and states she feels good at this point. HEAD: Atraumatic, normocephalic. EYES: Pupils equal round and reactive to light, extraocular movements intact, conjunctiva are normal. ENT: Nares patent, oropharynx clear without exudates. Moist mucous membranes. NECK: Normal range of motion, supple without lymphadenopathy LUNGS: Breath sounds clear to auscultation bilaterally and equal. No wheezes rales or rhonchi. HEART: Regular rate and rhythm without murmurs ABDOMEN: examination patient's abdomen shows she has some mild right upper quadrant tenderness to palpation but no distinct Malik sign noted. Rest of her abdomen is benign bowel sounds are present all 4 quads. Female : deferred Musculoskeletal: Normal range of motion, no pitting or edema. No cyanosis. NEUROLOGICAL Normal speech, normal gait. Normal sensory, motor exams PSYCH: Normal mood, normal affect. SKIN: Warm, Dry, normal turgor, no rashes or lesions noted. Course - Re-evaluation Re-evalutation: 08/12/18 16:40 Patient's white count came back normal. Her liver functions came back normal her lipase was bumped up to 375 but normal still just slightly over 300 so nothing exorbitant at this time. Patient's pain is been controlled and she feels much better. Leg patient is having a little bit of gallbladder colic I will place her on some Levsin and have instructed her for clear liquid diet for the next 24 hours. I have instructed her also return to ER should she have any increased nausea or vomiting or increased pain is not going away with the medication. Patient does not look toxic and actually is requesting to go home. - Vital Signs Vital signs: Temp Pulse Resp BP Pulse Ox 98.2 F 82 14 91/48 L 98 08/12/18 11:35 08/12/18 11:35 08/12/18 11:35 08/12/18 11:35 08/12/18 11:35 - Laboratory Result Diagrams: 08/12/18 12:28 08/12/18 12:28 Laboratory results interpreted by me: 08/12/18 08/12/18 08/12/18 12:28 12:28 12:28 RDW 14.2 H Glucose 53 L Lipase 375.3 H Ur Leukocyte Esterase TRACE H Discharge - Discharge Clinical Impression: Gallbladder colic Disposition: HOME, SELF-CARE Instructions: Abdominal Pain ([facility]), Antispasmodics ([facility]), Colic ([facility]) Additional Instructions: Home today and rest. Medication as prescribed. As we discussed anything consider gallbladder off including smells of fried fatty foods. Highly suggest staying away from as much as possible definitely a bland diet for the next 24 to 48 hours and especially in the next 24 only clear liquids. Give your belly arrest. Should you have increase in pain discomfort spike a fever or have any concerns that this is getting worse return to ER for recheck. Prescriptions: Hyoscyamine Sulfate [Levsin] 0.25 mg PO ACHS PRN #30 ml PRN Reason: Forms: Return to Work Referrals: SLOANE MANZANO MD [ACTIVE STAFF] - Follow up as needed
== END 2018-08-12 16:52 | disposition home or self-care (01) ==
LOC: ER 11:27
DX: K80.20 Calculus of gallbladder without cholecystitis without obstruction (principal); R10.9 Unspecified abdominal pain; R10.11 Right upper quadrant pain; M54.9 Dorsalgia, unspecified; J44.9 Chronic obstructive pulmonary disease, unspecified
CPT/HCPCS: 99284; 96361; 96374; 36415; 82962; 83690; 84703; 85025; 80053; 81001; J3490 ×2; J7030

== ENCOUNTER 2018-08-17 10:44 | Emergency (ER) | payer MEDICAID ==
--- NOTE | 2018-08-17 11:37 | ER Document Report ---
ED Medical Screen (RME) - General Chief Complaint: Suicidal Ideation Stated Complaint: SI Time Seen by Provider: 08/17/18 11:34 Primary Care Provider: ANTONIO ANGEL MD [Primary Care Provider] - Follow up as needed Mode of Arrival: Ambulatory Information source: Patient Notes: 23-year-old female presented to ED for thoughts of suicide since Thursday. She states she takes Unisom for insomnia and thought she might just take an overdose of that. She states she does not really want to and would like a safe place. Get a medicine change to help her with her depression. She was started on Celexa a couple weeks ago. She was seen by the [facility] today and sent to the emergency room for evaluation and treatment. I have greeted and performed a rapid initial assessment of this patient. A comprehensive ED assessment and evaluation of the patient, analysis of test results and completion of medical decision making process will be conducted by an additional ED providers. Dictation of this chart was performed using voice recognition software; therefore, there may be some unintended grammatical errors. TRAVEL OUTSIDE OF THE [place] IN LAST 30 DAYS: No - Related Data Allergies/Adverse Reactions: Penicillins Allergy (Unknown, Verified 08/17/18 10:56) unknown Past Medical History - Social History Frequency of alcohol use: None Drug Abuse: None - Past Medical History Cardiac Medical History: Denies: Hx Coronary Artery Disease, Hx Heart Attack, Hx Hypertension Pulmonary Medical History: Reports: Hx Asthma Denies: Hx Bronchitis, Hx COPD, Hx Pneumonia Neurological Medical History: Denies: Hx Cerebrovascular Accident, Hx Seizures Renal/ Medical History: Denies: Hx Peritoneal Dialysis Musculoskeltal Medical History: Denies Hx Arthritis Psychiatric Medical History: Reports: Hx Bipolar Disorder, Hx Depression Past Surgical History: Reports: Hx Oral Surgery. Denies: Hx Hysterectomy - Immunizations Immunizations up to date: Yes Hx Diphtheria, Pertussis, Tetanus Vaccination: Yes Physical Exam - Vital signs Vitals: Temp Pulse Resp BP Pulse Ox 98.1 F 73 18 128/66 H 97 08/17/18 11:03 08/17/18 11:03 08/17/18 11:03 08/17/18 11:03 08/17/18 11:03 Course - Vital Signs Vital signs: Temp Pulse Resp BP Pulse Ox 98.1 F 73 18 128/66 H 97 08/17/18 11:03 08/17/18 11:03 08/17/18 11:03 08/17/18 11:03 08/17/18 11:03 Doctor's Discharge - Discharge Referrals: ANTONIO ANGEL MD [Primary Care Provider] - Follow up as needed
[2018-08-17 12:05] LABS: ABSOLUTE EOSINOPHILS # (AUTO) 0.1 10^3/uL (0.0-0.6); ABSOLUTE LYMPHOCYTES (AUTO) 1.8 10^3/uL (0.5-4.7); ABSOLUTE MONOCYTES (AUTO) 0.6 10^3/uL (0.1-1.4); ABSOLUTE NEUT (AUTO) 4.9 10^3/uL (1.7-8.2); BASOPHILS % (AUTO) 0.6 % (0-2); EOSINOPHILS % (AUTO) 1.1 % (0-6); HEMATOCRIT 41.4 % (36.0-47.0); LYMPHOCYTES % (AUTO) 24.5 % (13-45); MEAN CORPUSCULAR HEMOGLOBIN 28.3 pg (27.0-33.4); MEAN CORPUSCULAR HGB CONC 33.8 g/dL (32.0-36.0); MEAN CORPUSCULAR VOLUME 84 fl (80-97); MONOCYTES % (AUTO) 8.3 % (3-13); PLATELET COUNT 305 10^3/uL (150-450); RED BLOOD COUNT 4.94 10^6/uL (3.72-5.28); RED CELL DISTRIBUTION WIDTH 13.7 % (11.5-14.0); SEGMENTED NEUTROPHILS % (AUTO) 65.5 % (42-78); TOTAL CELLS COUNTED % (AUTO) 100 %; WHITE BLOOD COUNT 7.4 10^3/uL (4.0-10.5)
[2018-08-17 12:29] LABS: ALANINE AMINOTRANSFERASE 19 U/L (9-52); ALBUMIN 4.8 g/dL (3.5-5.0); ALCOHOL < 10 mg/dL (NONE DETECTED); ALKALINE PHOSPHATASE 64 U/L (38-126); ANION GAP 13 (5-19); ASPARTATE AMINO TRANSFERASE 25 U/L (14-36); BILIRUBIN,DIRECT 0.2 mg/dL (0.0-0.4); BILIRUBIN,TOTAL 0.9 mg/dL (0.2-1.3); BLOOD UREA NITROGEN 13 mg/dL (7-20); CALCIUM 9.7 mg/dL (8.4-10.2); CARBON DIOXIDE 24 mmol/L (22-30); CHLORIDE 104 mmol/L (98-107); GLUCOSE 79 mg/dL (75-110); POTASSIUM 4.2 mmol/L (3.6-5.0); SODIUM 140.9 mmol/L (137-145); TOTAL PROTEIN 8.4 g/dL (6.3-8.2)
[2018-08-17 12:30] LABS: ACETAMINOPHEN < 10 ug/mL (10-30); SALICYLATE < 1.0 mg/dL (2.0-20.0)
[2018-08-17 12:47] LABS: APPEARANCE,URINE CLEAR; BILIRUBIN,URINE NEGATIVE (NEGATIVE); COLOR,URINE STRAW; GLUCOSE, URINE NEGATIVE (NEGATIVE); KETONES,URINE NEGATIVE (NEGATIVE); LEUKOCYTE ESTERASE,URINE TRACE (NEGATIVE); NITRITE,URINE NEGATIVE (NEGATIVE); PROTEIN,URINE NEGATIVE (NEGATIVE); URINE SPECIFIC GRAVITY 1.004; UROBILINOGEN,URINE NEGATIVE mg/dL (<2.0)
[2018-08-17 13:02] LABS: URINE AMPHETAMINES SCREEN NEGATIVE; URINE BARBITURATES SCREEN NEGATIVE; URINE BENZODIAZEPINES SCREEN NEGATIVE; URINE COCAINE SCREEN NEGATIVE; URINE MARIJUANA (THC) SCREEN NEGATIVE; URINE METHADONE SCREEN NEGATIVE; URINE PHENCYCLIDINE SCREEN NEGATIVE
--- NOTE | 2018-08-17 14:14 | ER Document Report ---
ED Psych Disorder / Suicide - General Mode of Arrival: Ambulatory TRAVEL OUTSIDE OF THE [place] IN LAST 30 DAYS: No <DEBI DUNCAN - Last Filed: 08/17/18 14:12> <KRISTA BUSTILLO - Last Filed: 08/18/18 12:20> <LUCA CARLSON - Last Filed: 08/18/18 14:50> - General Chief Complaint: Suicidal Ideation Stated Complaint: SI Time Seen by Provider: 08/17/18 11:34 Primary Care Provider: Juan Miguel Vanessa [Outside] - 08/18/18 [facility] [Outside] - Follow up as needed ANTONIO ANGEL MD [Primary Care Provider] - Follow up as needed Notes: E Provider note: 23-year-old female presented to ED for thoughts of suicide since Thursday. She states she takes Unisom for insomnia and thought she might just take an overdose of that. She states she does not really want to and would like a safe place. Get a medicine change to help her with her depression. She was started on Celexa a couple weeks ago. She was seen by the [facility] today and sent to the emergency room for evaluation and treatment. MY HPI: Same as above Pt. denies headache, neck pain, fever, abdominal pain, chest pain, URI symptoms, nausea, vomiting, diarrhea. (DEBI DUNCAN) - Related Data Allergies/Adverse Reactions: Penicillins Allergy (Unknown, Verified 08/17/18 10:56) unknown Past Medical History - General Information source: Patient - Social History Smoking Status: Never Smoker Frequency of alcohol use: None Drug Abuse: None Family History: Reviewed & Not Pertinent Patient has suicidal ideation: Yes Patient has homicidal ideation: No - Past Medical History Cardiac Medical History: Denies: Hx Coronary Artery Disease, Hx Heart Attack, Hx Hypertension Pulmonary Medical History: Reports: Hx Asthma Denies: Hx Bronchitis, Hx COPD, Hx Pneumonia Neurological Medical History: Denies: Hx Cerebrovascular Accident, Hx Seizures Renal/ Medical History: Denies: Hx Peritoneal Dialysis Musculoskeletal Medical History: Denies Hx Arthritis Psychiatric Medical History: Reports: Hx Bipolar Disorder, Hx Depression Past Surgical History: Reports: Hx Oral Surgery. Denies: Hx Hysterectomy - Immunizations Immunizations up to date: Yes Hx Diphtheria, Pertussis, Tetanus Vaccination: Yes <DEBI DUNCAN - Last Filed: 08/17/18 14:12> Review of Systems - Review of Systems Constitutional: No symptoms reported EENT: No symptoms reported Cardiovascular: No symptoms reported Respiratory: No symptoms reported Gastrointestinal: No symptoms reported Genitourinary: No symptoms reported Female Genitourinary: No symptoms reported Musculoskeletal: No symptoms reported Skin: No symptoms reported Hematologic/Lymphatic: No symptoms reported Neurological/Psychological: See HPI <DEBI DUNCAN - Last Filed: 08/17/18 14:12> Physical Exam <DEBI DUNCAN - Last Filed: 08/17/18 14:12> - Vital signs Vitals: Temp Pulse Resp BP Pulse Ox 98.1 F 73 18 128/66 H 97 08/17/18 11:03 08/17/18 11:03 08/17/18 11:03 08/17/18 11:03 08/17/18 11:03 - Notes Notes: GENERAL: Alert, interacts well. No acute distress. HEAD: Normocephalic, atraumatic. EYES: Pupils equal, round, and reactive to light. Extraocular movements intact. ENT: Oral mucosa moist, tongue midline. NECK: Full range of motion. Supple. Trachea midline. LUNGS: Clear to auscultation bilaterally, no wheezes, rales, or rhonchi. No respiratory distress. HEART: Regular rate and rhythm. No murmur ABDOMEN: Soft, non-tender. Non-distended. Bowel sounds present in all 4 quadrants. EXTREMITIES: Moves all 4 extremities spontaneously. No edema, normal radial and dorsalis pedis pulses bilaterally. No cyanosis. BACK: no cervical, thoracic, lumbar midline tenderness. No saddle anesthesia, normal distal neurovascular exam. NEUROLOGICAL: Alert and oriented x3. Normal speech. cranial nerves II through XII grossly intact PSYCH: Flat affect, depressed mood. SKIN: Warm, dry, normal turgor. No rashes or lesions noted. (DEBI DUNCAN) Course - Laboratory Result Diagrams: 08/17/18 11:40 08/17/18 11:40 <EDBI DUNCAN - Last Filed: 08/17/18 14:12> - Laboratory Result Diagrams: 08/17/18 11:40 08/17/18 11:40 <KRISTA BUSTILLO - Last Filed: 08/18/18 12:20> - Laboratory Result Diagrams: 08/17/18 11:40 08/17/18 11:40 <LUCA CARLSON - Last Filed: 08/18/18 14:50> - Re-evaluation Re-evalutation: Patient is been medically cleared for psychiatric evaluation. Psychiatric services have performed a med rec on this patient. Medications added as there is suggested. Patient is currently in IVC hold for 24 hours in the emergency department for continued care. Patient has been cooperative with no other complaints. Patient resting comfortably, hemodynamic stable. (DEBI DUNCAN) - Vital Signs Vital signs: Temp Pulse Resp BP Pulse Ox 97.9 F 72 18 106/68 96 08/18/18 03:15 08/18/18 03:15 08/18/18 03:15 08/18/18 03:15 08/18/18 03:15 - Laboratory Laboratory results interpreted by me: 08/17/18 08/17/18 11:40 12:00 Total Protein 8.4 H Ur Leukocyte Esterase TRACE H Salicylates < 1.0 L Acetaminophen < 10 L Discharge <DEBI DUNCAN - Last Filed: 08/17/18 14:12> <KRISTA BUSTILLO - Last Filed: 08/18/18 12:20> <LUCA CARLSON - Last Filed: 08/18/18 14:50> - Discharge Clinical Impression: Suicidal ideations Condition: Stable Disposition: HOME, SELF-CARE Additional Instructions: You have been evaluated by both medical and behavioral health providers while in the emergency department. You have been cleared from both acute medical and psychiatric services. It is felt your increased depression and suicidal ideation may be related to medication changes you reported took place a couple weeks ago. You said you did not want to hurt/harm/kill self and wanted to be in a safe place for medication change so came to the emergency department. Medications have been adjusted. You should follow up with you outpatient provider today as a walk in. It is recommended you also request individual therapy. DEPRESSION: Your evaluation reveals that you have mental depression. While symptoms may be vague, they often include disturbance of sleep, fatigue, loss of appetite, and general loss of interest in life. While depression may be a side effect of drugs, or a reaction to a major change in your life, many cases have no known cause. If depression is acute, and related to a major loss in your life, you can expect it to clear completely with time. If you have been depressed a long time, are prone to repeated bouts of depression or low mood, or have been thinking of suicide, get help. Depression can be treated with anti-depressant medication and counselling. Long-term depression will often take a few weeks to clear, even with appropriate medication. Follow-up care is important. SUICIDAL IDEATION: Suicidal ideation is a common medical term for thoughts about suicide, which may be as detailed as a formulated plan, without the suicidal act itself. Although most people who undergo suicidal ideation do not commit suicide, some go on to make suicide attempts. The range of suicidal ideation varies greatly from fleeting to detailed planning, role playing, and unsuccessful attempts. While thoughts about suicide are common, most people do not carry out serious actions to commit suicide. Based upon your evaluation and discussion with you, we do not believe you are currently at risk to act upon your thoughts of suicide. You have agreed to return to the Emergency Department, at any time, if you feel inclined to act upon your suicidal thoughts. FOLLOW-UP CARE: Your medications have been adjusted. All home medications were discontinued. Your were started on and provided prescriptions for Zyprexa 5MG twice a day (for mood stabilization/impulse control) and Cogentin 1MG daily (combine with medications like Zyprexa to prevent tremors). You should follow up with your medication provider at [facility] as a walk in today (you stated they said they would see you after same day as discharge). You should request Individual Therapy which can be very helpful in identifying triggers and learning coping strategies to stop or change negative thinking. You have been provided the [facility] Mobile Crisis number for crisis, talk therapy and linkage to other supports.services. If you experience worsening or a significant change in your symptoms, notify the physician immediately, utilize mobile crisis or return to the Emergency Department at any time for re-evaluation. Prescriptions: Benztropine Mesylate [Cogentin 1 mg Tablet] 1 mg PO DAILY #14 tablet Olanzapine [Zyprexa 5 mg Tablet] 5 mg PO Q12 #28 tablet Referrals: ANTONIO ANGEL MD [Primary Care Provider] - Follow up as needed [facility] Crisis Team [Outside] - Follow up as needed [facility] [Outside] - 08/18/18
--- NOTE | 2018-08-17 16:34 | PSYCHOLOGICAL NOTE ---
Psych Note - Psych Note Date seen by psych provider: 08/17/18 Psych Note: Diagnosis: Bipolar by History RAD by History PTSD by History Borderline Personality Disorder traits by History Medication recommendations made by the psychiatric medical provider, Dr. Shalini gallardo MD., includes: Discontinue all home medications: Celexa, Rexulti, Gabapentin Add Zyprexa 5MG twice a day for mood stabilization/impulse control Add Cogentin 1MG daily to curb tremor side effects often associated with antipsychotic medications Impression/Plan: Recommendation for 24 Hour IVC Petition. She reported SI since Thursday, with thoughts to OD on Unisom she has been taking to help with sleep, but does not want to. She has a history of OD attempt. She reported medications changes 2 weeks ago. Consulted with Dr. Perez regarding the management and care of patient. ED Physician in agreement with recommendations.
[2018-08-17] MEDS: OLANZAPINE 5 MG TABLET PO SCH (17:14)
--- NOTE | 2018-08-17 18:38 | EKG REPORT ---
SEVERITY:- NORMAL ECG - SINUS RHYTHM : Confirmed by: Iliana Vargas MD 17-Aug-2018 18:37:31
[2018-08-18] MEDS: OLANZAPINE 5 MG TABLET PO SCH (09:47)
[2018-08-18] MEDS ORDERED: BENZTROPINE MESYLATE 1 MG TABLET PO SCH (10:00)
--- NOTE | 2018-08-18 10:04 | ER Document Report ---
Doctor's Note Notes: 08/18/18 10:03 Patient seen and examined. She stayed overnight. Initially she has had she had a suicidal plan, plans to OD. She states actually she only came here because she wanted a "safe space." She does have support with her stepmother. She feels safe being discharged. She can walk and to see [facility] for follow-up after being immediately discharged from here. In the past she was unhappy with using Zyprexa, states that caused her weight gain. She reluctantly states she will be compliant with that now. She denies any homicidal ideation. Physical exam reveals a mildly flat affect but pleasant, cooperative examiner. Heart is regular rate and rhythm, lungs are clear to auscultation bilaterally. Abdomen soft and nontender. Skin is warm and dry. Plan will be to discharge this patient, her 24-hour IVC has . She is no longer feeling suicidal, has support and follow-up.
[2018-08-18 15:54] VITALS: BP 110/68
--- NOTE | 2018-08-18 20:54 | PSYCHOLOGICAL NOTE ---
Psych Note - Psych Note Date seen by psych provider: 08/18/18 Psych Note: Diagnosis: Bipolar by History RAD by History PTSD by History Borderline Personality Disorder traits by History Impression/Plan: Patient is cleared from acute psychiatric services. Recommend ation to rescind 24 Hour IVC Petition. She denied SI/HI and no observed psychosis. She showed good insight and judgment when she went to her outpatient provider at [facility] yesterday for SI and then came to the ED as they directed her. She noted she had thoughts of OD on sleep medication, did not want to, had medication changes 2-3 weeks ago and wanted to be in a safe place for further medication changes. She was held overnight for medication changes and seemed to tolerate them well given no reported or observed side effects. She noted weight gain when she was on the Zyprexa in the past. She was reminded how she said she had been on numerous medications, that many medications can cause weight gain or loss and it is important to be more mindful of diet. She noted she had only slept and hour the night before last but slept all day yesterday through today. Patient reported [facility] told her she could follow up at discharge and she was instructed to do a walk in today. Patient provided with the outpatient resource sheet which highlighted [facility] for crisis, talk therapy and linkage to other services/supports. Included patient's step mother/EC in plan of care and she said if patient was too tired or groggy to drive she would provide transportation. She also noted patient's overuse of sleep aid since sleep is a problem. Consulted with Dr. Perez regarding the management and care of patie nt. ED Physician in agreement with recommendations.
== END 2018-08-18 15:20 | disposition home or self-care (01) ==
LOC: ER 10:44
DX: R45.851 Suicidal ideations (principal); G47.00 Insomnia, unspecified; F43.10 Post-traumatic stress disorder, unspecified; Z88.0 Allergy status to penicillin
CPT/HCPCS: 93005; 99285; 36415; 80307 ×4; 84703; 85025; 80053; 81001; 93010; J3490 ×3

== ENCOUNTER 2018-08-27 07:45 | Day surgery (SDC) | payer MEDICAID ==
[2018-08-23 09:55] LABS: HEMATOCRIT 39.8 % (36.0-47.0); HEMOGLOBIN 13.5 g/dL (12.0-15.5); MEAN CORPUSCULAR HEMOGLOBIN 28.5 pg (27.0-33.4); MEAN CORPUSCULAR HGB CONC 33.9 g/dL (32.0-36.0); MEAN CORPUSCULAR VOLUME 84 fl (80-97); PLATELET COUNT 293 10^3/uL (150-450); RED BLOOD COUNT 4.73 10^6/uL (3.72-5.28); RED CELL DISTRIBUTION WIDTH 13.8 % (11.5-14.0); WHITE BLOOD COUNT 6.7 10^3/uL (4.0-10.5)
[2018-08-23 10:22] LABS: ALANINE AMINOTRANSFERASE 20 U/L (9-52); ALBUMIN 4.4 g/dL (3.5-5.0); ALKALINE PHOSPHATASE 61 U/L (38-126); ANION GAP 13 (5-19); ASPARTATE AMINO TRANSFERASE 21 U/L (14-36); BILIRUBIN,DIRECT 0.3 mg/dL (0.0-0.4); BILIRUBIN,TOTAL 0.4 mg/dL (0.2-1.3); BLOOD UREA NITROGEN 10 mg/dL (7-20); CALCIUM 9.6 mg/dL (8.4-10.2); CARBON DIOXIDE 23 mmol/L (22-30); CHLORIDE 105 mmol/L (98-107); GLUCOSE 95 mg/dL (75-110); POTASSIUM 3.8 mmol/L (3.6-5.0); SODIUM 140.9 mmol/L (137-145); TOTAL PROTEIN 7.7 g/dL (6.3-8.2)
[~2018-08-27 07:45] MED LIST: ACETAMINOPHEN 325 MG TABLET PO PRN; IBUPROFEN 800 MG in NORMAL SALINE 250 ML IV PRN; LACTATED RINGERS 1000 ML IV PRN; LIDOCAINE 0.5% INJ-PF (5 MG/ML) 50 ML SDV SUBCUT PRN; PREGABALIN 50 MG CAPSULE PO PRN; VANCOMYCIN HCL 1,000 MG in DEXTROSE 5%-WATER 250 ML IV PRN
[2018-08-27] MEDS ORDERED: ACETAMINOPHEN 325 MG TABLET ONE ×2 (08:44→08:46)
[2018-08-27] MEDS ORDERED: PREGABALIN 50 MG CAPSULE ONE (08:44)
[2018-08-27] MEDS ORDERED: SCOPOLAMINE HYDROBROMIDE 1.5 MG PATCH.TD72 ONE (09:32)
[2018-08-27] MEDS ORDERED: FAMOTIDINE INJ/PF 20 MG/2 ML SDV IV ONE (09:33)
[2018-08-27] MEDS ORDERED: MIDAZOLAM 2 MG/2 ML INJ ONE ×2 (09:33→09:56)
[2018-08-27] MEDS ORDERED: BUPIVACAINE HCL 0.25 % INJ/PF (2.5 MG/1 ML) 30 ML VIAL ONE (09:55)
[2018-08-27] MEDS ORDERED: PROPOFOL INJ 200 MG/20 ML VIAL IV ONE (09:56)
[2018-08-27] MEDS ORDERED: FENTANYL CITRATE INJ/PF 250 MCG/5 ML AMPULE ONE (09:56)
[2018-08-27] MEDS ORDERED: FENTANYL CITRATE INJ/PF 100 MCG/2 ML AMPUL IV PRN ×3 (10:31)
[2018-08-27] MEDS ORDERED: OXYCODONE-ACETAMINOPHEN 5-325 MG TABLET PO PRN ×2 (10:31)
[2018-08-27] MEDS ORDERED: PROMETHAZINE HCL INJ 25 MG/1 ML VIAL IV PRN ×2 (10:31)
[2018-08-27] MEDS ORDERED: MORPHINE SULFATE 10 MG/ML INJ IV PRN (10:31)
[2018-08-27] MEDS ORDERED: DIPHENHYDRAMINE HCL 50 MG/ML VIAL IV PRN (10:31)
[2018-08-27] MEDS ORDERED: MEPERIDINE HCL/PF INJ 25 MG/1 ML DISP.SYRIN IV PRN (10:31)
[2018-08-27] MEDS ORDERED: SUGAMMADEX SODIUM 200 MG/2 ML SDV IV ONE (10:58)
--- NOTE | 2018-08-27 11:01 | Discharge Summary ---
Discharge Summary (SDC) - Discharge Final Diagnosis: Symptomatic cholelithiasis Date of Surgery: 08/27/18 Discharge Date: 08/27/18 Condition: Stable Forms: ASU Anesthesia D/C Instruction, Discharge POC-Surgical Service Treatment or Instructions: Discharge home. Diet as tolerated. Activity: No lifting greater than 10 pounds x 2 weeks. Follow-up with me in 7 to 10 days. [place] 10/325 mg p.o. every 6 hours as needed for pain. Referrals: SLOANE MCCLURE MD [ACTIVE STAFF] - Discharge Diet: As Tolerated Respiratory Treatments at Home: Deep Breathing/Coughing, Incentive Spirometer Discharge Activity: No Lifting Over 10 Pounds Home Care Assistance: None Needed Report the Following to Your Physician Immediately: Shortness of Breath, Nausea, Vomiting, Increase in Pain, Yellow Skin, Fever over 101 Degrees, Unusual Bleeding, Redness
--- NOTE | 2018-08-27 11:04 | Operative Report ---
Nonrecallable Operative Report DATE OF SURGERY: 08/27/18 PREOPERATIVE DIAGNOSIS: Symptomatic cholelithiasis POSTOPERATIVE DIAGNOSIS: Same as above OPERATION: Laparoscopic cholecystectomy SURGEON: SLOANE MCCLURE 1ST DECONTAMINATION WORKER: HANSA FERREIRA ANESTHESIA: GA TISSUE REMOVED OR ALTERED: Gallbladder COMPLICATIONS: None apparent ESTIMATED BLOOD LOSS: Minimal PROCEDURE: Drains/implants: None. Procedure in detail: After informed consent was obtained, the patient was brought to the operating room and laid in the supine position. The area of the abdomen was prepped and draped in a normal sterile fashion. A curvilinear infraumbilical incision was created with a 15 blade scalpel. This was deepened using blunt dissection. The linea alba fascia was then incised sharply, the abdomen was entered sharply. The balloon trocar was inserted, and pneumoperitoneum was achieved. A subxiphoid 5 mm port was placed under direct laparoscopic visualization. 2 more 5 mm ports were placed in the right upper quadrant in similar fashion. Atraumatic graspers were placed through the 5 mm ports. The gallbladder was retracted cephalad and laterally. Dissection was begun in the triangle of Calot. The cystic duct and cystic artery were fully visualized and skeletonized, seeing the liver through the triangle. Once the critical view of safety was obtained, the cystic duct and cystic artery were clipped and cut with laparoscopic instruments. The gallbladder was then removed from the liver using Bovie electrocautery. The gallbladder was grasped with a large clamp and pulled out through the umbilicus. The camera was reinserted. The hilum was inspected. It was found to be free of any leakage of blood or bile. Once this was confirmed, the 5 mm trochars were removed under direct laparoscopic visualization. The infraumbilical trocar was removed, and pneumoperitoneum was relieved. The infraumbilical fascia was closed using 0 Vicryl suture in [id number] fashion. The overlying skin was closed using 4-0 Vicryl Rapide suture in subcuticular fashion. Dressings were placed, and the procedure was concluded. All sponge, instrument, and needle counts were correct x2. Condition: Stable. Hansa Ferreira PA-C was scrubbed and present the entirety the procedure. She assisted with all portions of the procedure including placement of the trochars, manipulation of the gallbladder, removal of the gallbladder, closure of the fascia, and closure of the skin.
[2018-08-27] MEDS ORDERED: DIPHENHYDRAMINE HCL 50 MG/ML VIAL ONE (11:52)
[2018-08-27] MEDS ORDERED: HYDROCODONE/ACETAMINOPHEN 5-325 MG TABLET PO PRN (12:00)
[2018-08-27] MEDS ORDERED: HYDROCODONE/ACETAMINOPHEN 10-325 MG TABLET PO PRN (12:02)
[2018-08-27] MEDS ORDERED: HYDROCODONE/ACETAMINOPHEN 10-325 MG TABLET ONE (12:33)
[2018-08-27 15:59] VITALS: BP 109/77
[2018-08-27] MEDS ORDERED: LIDOCAINE 2% INJ-PF (20 MG/ML) 2 ML AMPUL ONE (21:17)
[2018-08-27] MEDS ORDERED: NEOSTIGMINE METHYLSULFATE 10 MG/10 ML VIAL ONE (21:17)
[2018-08-27] MEDS ORDERED: DEXAMETHASONE SOD PHOSPHATE INJ 4 MG/1 ML VIAL ONE (21:17)
[2018-08-27] MEDS ORDERED: ROCURONIUM BROMIDE INJ 50 MG/5 ML VIAL IV ONE (21:17)
[2018-08-27] MEDS ORDERED: ONDANSETRON HCL INJ/PF 4 MG/2 ML SDV ONE (21:17)
[2018-08-27] MEDS ORDERED: GLYCOPYRROLATE 1 MG/5 ML SYRINGE ONE (21:17)
== END 2018-08-27 14:05 | disposition home or self-care (01) ==
LOC: OROUT 07:45
PROVIDERS: ATTEND Surgery
DX: K81.1 Chronic cholecystitis (principal); Z88.0 Allergy status to penicillin; Z79.899 Other long term (current) drug therapy
CPT/HCPCS: 36415; 85027; 81025; 80053; 88304 ×2; 00790; 47562; J3490 ×7; J2250; J1100; J1200; J3010; J2710; J2405; S0020; J7060; J7050; J2704; J3370; S0028; J1741; 790

== ENCOUNTER → 2018-11-11 | Outpatient (CLI) | payer SELFPAY ==
[2018-11-11 12:24] LABS: RBCS (WET MOUNT) FEW RBCS SEEN; T.VAGINALIS (WET MOUNT) NO TRICHOMONAS SEEN; WBCS (WET MOUNT) 1+ WBCS SEEN; YEAST (WET MOUNT) BUDDING YEAST SEEN
[2018-11-11 13:57] LABS: CHLAM PCR NOT DETECTED (NOT DETECT)
== END ==
LOC: LAB 12:17
PROVIDERS: ATTEND Nurse Practitioner Acute Care
DX: N89.8 Other specified noninflammatory disorders of vagina (principal); R30.0 Dysuria
CPT/HCPCS: 87086; 87210; 87491; 87591

== ENCOUNTER 2018-12-10 12:15 | Emergency (ER) | payer MEDICAID ==
[2018-12-10 12:34] VITALS: BP 110/62
--- NOTE | 2018-12-10 12:38 | ER Document Report ---
HPI - HPI Time Seen by Provider: 12/10/18 12:25 Pain Level: 1 Context: Patient is a 23-year-old female who presents to the emergency department with a chief complaint of left wrist pain. She has a cyst on the dorsal aspect of her left wrist in the middle of her wrist. This is consistent with a ganglion cyst. She has had it for the past 9 years. 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 - REPRODUCTIVE Reproductive: DENIES: : Past Medical History - General Information source: Patient - Social History Smoking Status: Never Smoker Family History: Reviewed & Not Pertinent - Past Medical History Cardiac Medical History: Denies: Hx Coronary Artery Disease, Hx Heart Attack, Hx Hypertension Pulmonary Medical History: Denies: Hx Asthma, Hx Bronchitis, Hx COPD, Hx Pneumonia Neurological Medical History: Denies: Hx Cerebrovascular Accident, Hx Seizures Renal/ Medical History: Denies: Hx Peritoneal Dialysis Musculoskeletal Medical History: Denies Hx Arthritis Psychiatric Medical History: Reports: Hx Bipolar Disorder, Hx Depression Past Surgical History: Reports: Hx Oral Surgery. Denies: Hx Hysterectomy - Immunizations Immunizations up to date: Yes Hx Diphtheria, Pertussis, Tetanus Vaccination: Yes Vertical Provider Document - CONSTITUTIONAL Agree With Documented VS: Yes Exam Limitations: No Limitations General Appearance: No Apparent Distress - INFECTION CONTROL TRAVEL OUTSIDE OF THE [place] IN LAST 30 DAYS: No - HEENT HEENT: Atraumatic, Conjuctival Injection - NECK Neck: Normal Inspection, Supple - RESPIRATORY Respiratory: No Respiratory Distress - CARDIOVASCULAR Cardiovascular: Bradycardia Pulses: Normal: Radial - MUSCULOSKELETAL/EXTREMETIES Musculoskeletal/Extremeties: FROM, Tender - Very mild to left dorsal wrist - NEURO Level of Consciousness: Awake, Alert, Appropriate Motor/Sensory: No Motor Deficit, No Sensory Deficit - DERM Integumentary: Warm, Dry Course - Re-evaluation Re-evalutation: 12/10/18 12:34 Patient's physical exam is consistent with a ganglion cyst. Patient has full range of motion of her wrist joint. I explained to the patient that she needs to follow-up with her primary care provider and get a referral to dermatology to have the cyst evaluated. She is in agreement with this plan. I have a very low suspicion for a tendon rupture, fracture, or any other etiology. Follow-up precautions were given. Verbal discharge instructions were given to the patient. They verbalized understanding. They are stable for discharge. Discharge - Discharge Clinical Impression: Ganglion cyst Condition: Stable Disposition: HOME, SELF-CARE Additional Instructions: You are seen today in the emergency department for left wrist pain. You are being placed in a wrist splint to help keep your wrist straight. See if you can be referred out to dermatology for your ganglion cyst. Cysts are usually not harmful. Please follow-up with your primary care provider in regards to this visit. [facility] [employer] [facility] [address] [place] [address] Open 8:00 AM - 4:00 PM [facility] (3) [employer] [address] Referrals: GABRIELLA ALBERTO NP [Primary Care Provider] - Follow up in 1 week
== END 2018-12-10 12:46 | disposition home or self-care (01) ==
LOC: ER 12:15
DX: M67.432 Ganglion, left wrist (principal); M25.532 Pain in left wrist; X58.XXXA Exposure to other specified factors, initial encounter
CPT/HCPCS: 99282; L3908

== ENCOUNTER 2018-12-13 10:58 | Emergency (ER) | payer MEDICAID ==
--- NOTE | 2018-12-13 11:29 | ER Document Report ---
ED Medical Screen (RME) - General Chief Complaint: Abdominal Pain Stated Complaint: ABDOMINAL PAIN Time Seen by Provider: 12/13/18 11:21 Primary Care Provider: ROGER BECKWITH FNP-C [Primary Care Provider] - Follow up as needed Notes: 23-year-old sexually active female presents the emergency department with right upper quadrant and epigastric pain that is persisted since her cholecystectomy in September 2018 done here. Patient came to the ER because she was nauseated and vomited at work. Denies fevers or chills, complains of nausea and one episodes of vomiting, pain is epigastric/right upper quadrant and stabbing, denies any lower abdominal/pelvic pain, denies urinary symptoms, denies any abnormal vaginal discharge. No other complaints EXAM: Well-appearing in no acute distress, lungs clear to auscultation in all reyna, regular cardiac rate and rhythm, abdominal exam limited in triage but no acute tenderness to palpation in the epigastric or right upper quadrant area I have greeted and performed a rapid initial assessment of this patient. A comprehensive ED assessment and evaluation of the patient, analysis of test results and completion of medical decision making process will be conducted by an additional ED providers. TRAVEL OUTSIDE OF THE [place] IN LAST 30 DAYS: No - Related Data Allergies/Adverse Reactions: Penicillins Allergy (Unknown, Verified 12/10/18 12:22) unknown Past Medical History - Past Medical History Cardiac Medical History: Denies: Hx Coronary Artery Disease, Hx Heart Attack, Hx Hypertension Pulmonary Medical History: Denies: Hx Asthma, Hx Bronchitis, Hx COPD, Hx Pneumonia Neurological Medical History: Denies: Hx Cerebrovascular Accident, Hx Seizures Renal/ Medical History: Denies: Hx Peritoneal Dialysis Musculoskeltal Medical History: Denies Hx Arthritis Psychiatric Medical History: Reports: Hx Bipolar Disorder, Hx Depression Past Surgical History: Reports: Hx Oral Surgery. Denies: Hx Hysterectomy - Immunizations Immunizations up to date: Yes Hx Diphtheria, Pertussis, Tetanus Vaccination: Yes History of Influenza Vaccine for 12/2016 - 05/2017 Season: No Physical Exam - Vital signs Vitals: Temp Pulse Resp BP Pulse Ox 98.5 F 64 17 121/70 99 12/13/18 11:15 12/13/18 11:15 12/13/18 11:15 12/13/18 11:15 12/13/18 11:15 Course - Vital Signs Vital signs: Temp Pulse Resp BP Pulse Ox 98.5 F 64 17 121/70 99 12/13/18 11:15 12/13/18 11:15 12/13/18 11:15 12/13/18 11:15 12/13/18 11:15 Doctor's Discharge - Discharge Referrals: ROGER BECKWITH FNP-C [Primary Care Provider] - Follow up as needed
[2018-12-13 11:48] LABS: ABSOLUTE BASOPHILS # (AUTO) 0.1 10^3/uL (0.0-0.2); ABSOLUTE EOSINOPHILS # (AUTO) 0.1 10^3/uL (0.0-0.6); ABSOLUTE LYMPHOCYTES (AUTO) 1.8 10^3/uL (0.5-4.7); ABSOLUTE MONOCYTES (AUTO) 0.5 10^3/uL (0.1-1.4); ABSOLUTE NEUT (AUTO) 3.7 10^3/uL (1.7-8.2); BASOPHILS % (AUTO) 1.2 % (0-2); EOSINOPHILS % (AUTO) 2.3 % (0-6); HEMATOCRIT 41.2 % (36.0-47.0); HEMOGLOBIN 13.9 g/dL (12.0-15.5); LYMPHOCYTES % (AUTO) 29.6 % (13-45); MEAN CORPUSCULAR HEMOGLOBIN 27.6 pg (27.0-33.4); MEAN CORPUSCULAR HGB CONC 33.7 g/dL (32.0-36.0); MEAN CORPUSCULAR VOLUME 82 fl (80-97); MONOCYTES % (AUTO) 7.9 % (3-13); PLATELET COUNT 296 10^3/uL (150-450); RED BLOOD COUNT 5.03 10^6/uL (3.72-5.28); RED CELL DISTRIBUTION WIDTH 13.7 % (11.5-14.0); TOTAL CELLS COUNTED % (AUTO) 100 %; WHITE BLOOD COUNT 6.2 10^3/uL (4.0-10.5)
[2018-12-13 11:53] LABS: APPEARANCE,URINE SLIGHTLY-CLOUDY; BILIRUBIN,URINE NEGATIVE (NEGATIVE); COLOR,URINE YELLOW; GLUCOSE, URINE NEGATIVE (NEGATIVE); KETONES,URINE NEGATIVE (NEGATIVE); LEUKOCYTE ESTERASE,URINE MODERATE (NEGATIVE); NITRITE,URINE NEGATIVE (NEGATIVE); PROTEIN,URINE NEGATIVE (NEGATIVE); URINE SPECIFIC GRAVITY 1.018
[2018-12-13 12:05] LABS: ALBUMIN 4.7 g/dL (3.5-5.0); ALKALINE PHOSPHATASE 75 U/L (38-126); ANION GAP 11 (5-19); ASPARTATE AMINO TRANSFERASE 35 U/L (14-36); BILIRUBIN,DIRECT 0.1 mg/dL (0.0-0.4); BILIRUBIN,TOTAL 0.3 mg/dL (0.2-1.3); BLOOD UREA NITROGEN 7 mg/dL (7-20); CALCIUM 9.4 mg/dL (8.4-10.2); CARBON DIOXIDE 27 mmol/L (22-30); CHLORIDE 103 mmol/L (98-107); GLUCOSE 85 mg/dL (75-110); POTASSIUM 4.1 mmol/L (3.6-5.0); TOTAL PROTEIN 8.1 g/dL (6.3-8.2)
--- NOTE | 2018-12-13 12:35 | ER Document Report ---
ED GI/ - General Chief Complaint: Abdominal Pain Stated Complaint: ABDOMINAL PAIN Time Seen by Provider: 12/13/18 11:21 Primary Care Provider: ROGER BECKWITH FNP-C [Primary Care Provider] - Follow up as needed Mode of Arrival: Ambulatory Information source: Patient TRAVEL OUTSIDE OF THE [place] IN LAST 30 DAYS: No - HPI Patient complains to provider of: Abdominal pain, Vomiting - pt is s/p cholecystectomy 10/08 at [facility]. She has been having intermittent epigastricc and R-sided abdominal pain since then. Today, while at work, she became nauseated and vomited times 1 after having some mid epigastric abdominal pain. She feels much better now and is not having any pain. - Related Data Allergies/Adverse Reactions: Penicillins Allergy (Unknown, Verified 12/10/18 12:22) unknown Past Medical History - General Information source: Patient - Social History Smoking Status: Never Smoker Frequency of alcohol use: None Family History: Reviewed & Not Pertinent Patient has suicidal ideation: No Patient has homicidal ideation: No - Past Medical History Cardiac Medical History: Denies: Hx Coronary Artery Disease, Hx Heart Attack, Hx Hypertension Pulmonary Medical History: Denies: Hx Asthma, Hx Bronchitis, Hx COPD, Hx Pneumonia Neurological Medical History: Denies: Hx Cerebrovascular Accident, Hx Seizures Renal/ Medical History: Denies: Hx Peritoneal Dialysis Musculoskeletal Medical History: Denies Hx Arthritis Psychiatric Medical History: Reports: Hx Bipolar Disorder, Hx Depression Past Surgical History: Reports: Hx Oral Surgery. Denies: Hx Hysterectomy - Immunizations Immunizations up to date: Yes Hx Diphtheria, Pertussis, Tetanus Vaccination: Yes Review of Systems - Review of Systems Constitutional: No symptoms reported EENT: No symptoms reported Cardiovascular: No symptoms reported Respiratory: No symptoms reported Gastrointestinal: See HPI, Abdominal pain, Nausea, Vomiting Musculoskeletal: No symptoms reported Neurological/Psychological: No symptoms reported -: Yes All other systems reviewed and negative Physical Exam - Vital signs Vitals: Temp Pulse Resp BP Pulse Ox 98.5 F 64 17 121/70 99 12/13/18 11:15 12/13/18 11:15 12/13/18 11:15 12/13/18 11:15 12/13/18 11:15 - General General appearance: Appears well In distress: None - Respiratory Respiratory status: No respiratory distress Breath sounds: Normal - Cardiovascular Heart sounds: Normal auscultation Murmur: No - Abdominal Inspection: Normal Distension: No distension Bowel sounds: Normal Tenderness: Nontender Organomegaly: No organomegaly Course - Re-evaluation Re-evalutation: 12/13/18 13:43 Pt. feels well at time of d/c -- expressed desire to go home - Vital Signs Vital signs: Temp Pulse Resp BP Pulse Ox 98.5 F 64 17 121/70 99 12/13/18 11:15 12/13/18 11:15 12/13/18 11:15 12/13/18 11:15 12/13/18 11:15 - Laboratory Result Diagrams: 12/13/18 11:35 12/13/18 11:35 Laboratory results interpreted by me: 12/13/18 11:35 Urine Urobilinogen 2.0 H Ur Leukocyte Esterase MODERATE H - Diagnostic Test Radiology reviewed: Image reviewed - neg Discharge - Discharge Clinical Impression: Abdominal pain Qualifiers: Abdominal location: epigastric Qualified Code(s): R10.13 - Epigastric pain Condition: Stable Disposition: HOME, SELF-CARE Instructions: Abdominal Pain ([facility]) Additional Instructions: rest, liquids for 24 hrs., return if worse Referrals: ROGER BECKWITH, DIST[employer]ING [employer] LEADER-C [Primary Care Provider] - Follow up as needed
[2018-12-13 13:53] VITALS: BP 112/69
--- NOTE | 2018-12-13 14:06 | RADIOLOGY REPORT (SQ) ---
EXAM DESCRIPTION: U/S ABDOMEN LTD W/DOPPLER COMPLETED DATE/TIME: 12/13/2018 1:53 pm REASON FOR STUDY: RUQ pain s/p cholecystectomy 10/08 COMPARISON: None. TECHNIQUE: Dynamic and static grayscale images acquired of the abdomen and recorded on PACS. Additio nal selected color Doppler and spectral images recorded. LIMITATIONS: None. FINDINGS: PANCREAS: No masses. Visualized pancreatic duct normal caliber. LIVER: No masses. Echotexture normal. LIVER VASCULATURE: Normal directional flow of the main portal vein and hepatic veins. GALLBLADDER: Surgically absent. ULTRASOUND-DETECTED BARAJAS'S SIGN: Negative. INTRAHEPATIC DUCTS AND COMMON DUCT: CBD and intrahepatic ducts normal caliber. No filling defects. INFERIOR VENA CAVA: Normal flow. AORTA: No aneurysm. RIGHT KIDNEY: Normal size. Normal echogenicity. No solid or suspicious masses. No hydronephrosis. No calcifications. PERITONEAL AND RIGHT PLEURAL SPACE: No ascites or effusions. OTHER: No other significant findings. IMPRESSION: Gallbladder surgically absent. Otherwise normal. TECHNICAL DOCUMENTATION: JOB ID: [id number] [employer]- All Rights Reserved Reading location - IP/workstation name: [email or web address]
== END 2018-12-13 14:10 | disposition home or self-care (01) ==
LOC: ER 10:58
DX: R10.13 Epigastric pain (principal); R11.2 Nausea with vomiting, unspecified; R10.9 Unspecified abdominal pain; Z90.49 Acquired absence of other specified parts of digestive tract
CPT/HCPCS: 36415; 76705; 80053; 81001; 81025; 83690; 85025; 93976; 99284

== ENCOUNTER 2019-01-02 17:58 | Emergency (ER) | payer MEDICAID ==
[2019-01-02 18:48] LABS: ABSOLUTE LYMPHOCYTES (AUTO) 1.4 10^3/uL (0.5-4.7); ABSOLUTE MONOCYTES (AUTO) 0.8 10^3/uL (0.1-1.4); ABSOLUTE NEUT (AUTO) 6.2 10^3/uL (1.7-8.2); BASOPHILS % (AUTO) 0.4 % (0-2); EOSINOPHILS % (AUTO) 0.5 % (0-6); HEMATOCRIT 38.2 % (36.0-47.0); HEMOGLOBIN 12.9 g/dL (12.0-15.5); LYMPHOCYTES % (AUTO) 16.4 % (13-45); MEAN CORPUSCULAR HEMOGLOBIN 27.6 pg (27.0-33.4); MEAN CORPUSCULAR HGB CONC 33.7 g/dL (32.0-36.0); MEAN CORPUSCULAR VOLUME 82 fl (80-97); MONOCYTES % (AUTO) 9.7 % (3-13); PLATELET COUNT 277 10^3/uL (150-450); RED BLOOD COUNT 4.65 10^6/uL (3.72-5.28); RED CELL DISTRIBUTION WIDTH 13.6 % (11.5-14.0); TOTAL CELLS COUNTED % (AUTO) 100 %; WHITE BLOOD COUNT 8.5 10^3/uL (4.0-10.5)
[2019-01-02 19:03] LABS: ALBUMIN 4.4 g/dL (3.5-5.0); ALKALINE PHOSPHATASE 70 U/L (38-126); ANION GAP 11 (5-19); ASPARTATE AMINO TRANSFERASE 39 U/L (14-36); BILIRUBIN,DIRECT 0.1 mg/dL (0.0-0.4); BILIRUBIN,TOTAL 0.3 mg/dL (0.2-1.3); BLOOD UREA NITROGEN 8 mg/dL (7-20); CALCIUM 9.3 mg/dL (8.4-10.2); CARBON DIOXIDE 26 mmol/L (22-30); CHLORIDE 101 mmol/L (98-107); GLUCOSE 114 mg/dL (75-110); POTASSIUM 3.5 mmol/L (3.6-5.0); TOTAL PROTEIN 7.6 g/dL (6.3-8.2)
[2019-01-02 19:06] LABS: ACETAMINOPHEN < 10 ug/mL (10-30); ALCOHOL < 10 mg/dL (NONE DETECTED); SALICYLATE < 1.0 mg/dL (2.0-20.0)
[2019-01-02 19:21] LABS: APPEARANCE,URINE CLEAR; BILIRUBIN,URINE NEGATIVE (NEGATIVE); COLOR,URINE YELLOW; GLUCOSE, URINE NEGATIVE (NEGATIVE); KETONES,URINE NEGATIVE (NEGATIVE); LEUKOCYTE ESTERASE,URINE NEGATIVE (NEGATIVE); NITRITE,URINE NEGATIVE (NEGATIVE); PROTEIN,URINE NEGATIVE (NEGATIVE); URINE SPECIFIC GRAVITY 1.014; UROBILINOGEN,URINE NEGATIVE mg/dL (<2.0)
--- NOTE | 2019-01-02 19:25 | ER Document Report ---
ED General - General Chief Complaint: Overdose Stated Complaint: POSSIBLE OVERDOSE Time Seen by Provider: 01/02/19 18:10 Primary Care Provider: ROGER BECKWITH FNP-C [Primary Care Provider] - Follow up as needed TRAVEL OUTSIDE OF THE [place] IN LAST 30 DAYS: No - HPI Notes: Patient is a 23-year-old female with a history of psychiatric issues who presents emergency department for evaluation after an overdose. She states she intentionally did this. She overdosed on Ambien, believes she took about 15 pills. She actually was just discharged from [facility] yesterday. She states that she took these pills because her father was angry with her. She had originally agreed to take care of his dog, and then stated that she made other plans, and wanted to get out of it. Her father told her that she had "made a commitment" and he expected her to honor it. Because of this, she overdosed in an attempt to kill herself. She states she is still suicidal. She has overdo sed multiple times on sleeping pills in the past, sometimes in a suicide attempt, otherwise because she just has sleep issues. - Related Data Allergies/Adverse Reactions: Penicillins Allergy (Unknown, Verified 12/10/18 12:22) unknown Past Medical History - General Information source: Patient - Social History Smoking Status: Current Some Day Smoker Chew tobacco use (# tins/day): No Frequency of alcohol use: Rare Drug Abuse: None Family History: Reviewed & Not Pertinent Patient has suicidal ideation: Yes Patient has homicidal ideation: No - Past Medical History Cardiac Medical History: Denies: Hx Coronary Artery Disease, Hx Heart Attack, Hx Hypertension Pulmonary Medical History: Denies: Hx Asthma, Hx Bronchitis, Hx COPD, Hx Pneumonia Neurological Medical History: Denies: Hx Cerebrovascular Accident, Hx Seizures Renal/ Medical History: Denies: Hx Peritoneal Dialysis Musculoskeletal Medical History: Denies Hx Arthritis Psychiatric Medical History: Reports: Hx Bipolar Disorder, Hx Borderline Personality Disorder, Hx Depression Past Surgical History: Reports: Hx Oral Surgery. Denies: Hx Hysterectomy - Immunizations Immunizations up to date: Yes Hx Diphtheria, Pertussis, Tetanus Vaccination: Yes Review of Systems - Review of Systems Constitutional: No symptoms reported EENT: No symptoms reported Cardiovascular: No symptoms reported Respiratory: No symptoms reported Gastrointestinal: No symptoms reported Genitourinary: No symptoms reported Musculoskeletal: No symptoms reported Skin: No symptoms reported Neurological/Psychological: See HPI Physical Exam - Vital signs Vitals: Temp Resp BP Pulse Ox 98.9 F 18 118/81 98 01/02/19 18:20 01/02/19 18:20 01/02/19 18:20 01/02/19 18:20 - Notes Notes: This is a 23-year-old female, lying supine in her bed. She is attempting to open her phone, but has disabled it because she cannot type in her password appropriately. She is drowsy but GCS of 456. Vital signs reviewed, please r efer to chart. Head is normocephalic, atraumatic. Pupils equal round, reactive to light. Neck is supple without meningismus. Heart is regular rate and rhythm. Lungs are clear to auscultation bilaterally. Abdomen is soft, nontender, normoactive bowel sounds throughout. Extremities without cyanosis, clubbing. Posterior calves are nontender. Peripheral pulses are equal. Skin is warm and dry. Patient is cooperative with examiner with diminished eye contact. Depressed affect. Course - Re-evaluation Re-evalutation: 01/02/19 19:26 Patient presents emergency department for evaluation. This was after an alleged suicide attempt, the patient states she is still suicidal. Given this information, as well as her level of drowsiness, I am inclined to place an IVC order. This was performed. At this point patient is medically stable. We do not have a clear timeframe as to when she took the Ambien. Poison control recommended a 4 to 6-hour window of observation. Following this window, patient will be medically cleared and available for psychosocial evaluation. 01/02/19 21:08 Awaiting repeat acetaminophen, but no expectation that she become positive. Patient remained stable, heart rate in the 90s, pulse ox 96% on room air. Respiratory rate is 17 and unlabored, she remains drowsy but with verbal stimuli only. At 2200 patient will be medically cleared. - Vital Signs Vital signs: Temp Pulse Resp BP Pulse Ox 98.9 F 15 101/74 96 01/02/19 18:20 01/02/19 20:01 01/02/19 20:01 01/02/19 20:01 - Laboratory Result Diagrams: 01/02/19 17:37 01/02/19 18:23 Laboratory results interpreted by me: 01/02/19 01/02/19 18:23 19:00 Potassium 3.5 L Glucose 114 H AST 39 H Urine Ascorbic Acid 40 H Salicylates < 1.0 L Acetaminophen < 10 L - EKG Interpretation by Me Additional EKG results interpreted by me: 01/02/19 21:08 Sinus tachycardia with a rate of 102 bpm. Normal axis and intervals, no acute ST changes concerning for ischemia or infarction. Discharge - Discharge Clinical Impression: intentional overdose Condition: Stable Disposition: OTHER Referrals: ROGER BECKWITH, RIDGE-C [Primary Care Provider] - Follow up as needed
[2019-01-02 19:34] LABS: URINE AMPHETAMINES SCREEN NEGATIVE; URINE BARBITURATES SCREEN NEGATIVE; URINE BENZODIAZEPINES SCREEN NEGATIVE; URINE COCAINE SCREEN NEGATIVE; URINE MARIJUANA (THC) SCREEN NEGATIVE; URINE METHADONE SCREEN NEGATIVE; URINE PHENCYCLIDINE SCREEN NEGATIVE
--- NOTE | 2019-01-02 21:01 | EKG REPORT ---
SEVERITY:- OTHERWISE NORMAL ECG - SINUS TACHYCARDIA : Confirmed by: Christian Shelton MD 02-Jan-2019 21:01:07
--- NOTE | 2019-01-02 23:54 | ER Document Report ---
ED Medical Screen (RME) - General Chief Complaint: Overdose Stated Complaint: POSSIBLE OVERDOSE Time Seen by Provider: 01/02/19 18:10 Primary Care Provider: ROGER BECKWITH FNP-C [Primary Care Provider] - Follow up as needed TRAVEL OUTSIDE OF THE [place] IN LAST 30 DAYS: No - HPI Notes: 01/02/19 23:51 This is a 23-year-old female who presented earlier to the emergency department for evaluation of a reported Ambien overdose. Dr. Hopson checked out the patient to me at 2100 hrs., stating that the patient was pending a repeat acetaminophen level to complete her evaluation in terms of medical clearance. Patient was seen and examined by this MD at 2345 hrs. patient is found to be in no acute distress, patient is awake and alert, sitting up in bed, in no acute distress. Patient has a nonfocal neuro exam, heart auscultation reveals regular rate and rhythm without clicks murmurs or rubs, lungs are clear to auscultation, abdomen is soft nontender nondistended with normal bowel sounds. Repeat acetaminophen level is less than 10. Patient is considered medically cleared by this MD. - Related Data Allergies/Adverse Reactions: Penicillins Allergy (Unknown, Verified 12/10/18 12:22) unknown Past Medical History - Social History Chew tobacco use (# tins/day): No Frequency of alcohol use: Rare Drug Abuse: None - Past Medical History Cardiac Medical History: Denies: Hx Coronary Artery Disease, Hx Heart Attack, Hx Hypertension Pulmonary Medical History: Denies: Hx Asthma, Hx Bronchitis, Hx COPD, Hx Pneumonia Neurological Medical History: Denies: Hx Cerebrovascular Accident, Hx Seizures Renal/ Medical History: Denies: Hx Peritoneal Dialysis Musculoskeltal Medical History: Denies Hx Arthritis Psychiatric Medical History: Reports: Hx Bipolar Disorder, Hx Borderline Personality Disorder, Hx Depression Past Surgical History: Reports: Hx Oral Surgery. Denies: Hx Hysterectomy - Immunizations Immunizations up to date: Yes Hx Diphtheria, Pertussis, Tetanus Vaccination: Yes Physical Exam - Vital signs Vitals: Temp Resp BP Pulse Ox 98.9 F 18 118/81 98 01/02/19 18:20 01/02/19 18:20 01/02/19 18:20 01/02/19 18:20 Course - Vital Signs Vital signs: Temp Pulse Resp BP Pulse Ox 98.9 F 17 107/67 96 01/02/19 18:20 01/02/19 21:01 01/02/19 21:01 01/02/19 21:01 - Laboratory Result Diagrams: 01/02/19 17:37 01/02/19 18:23 Laboratory results interpreted by me: 01/02/19 01/02/19 01/02/19 18:23 19:00 21:10 Potassium 3.5 L Glucose 114 H AST 39 H Urine Ascorbic Acid 40 H Salicylates < 1.0 L Acetaminophen < 10 L < 10 L Doctor's Discharge - Discharge Clinical Impression: intentional overdose Condition: Stable Disposition: OTHER Referrals: ROGER BECKWITH, RIDGE-C [Primary Care Provider] - Follow up as needed
--- NOTE | 2019-01-03 14:36 | ER Document Report ---
Doctor's Note Notes: 01/03/19 14:32 S: 23-year-old female in the emergency department after she attempted overdose on Ambien last night. Apparently she attempted overdose after she and her father had a disagreement about her taking care of his dog. Patient states that she told her father that she could not take care of the dog and he told her that she needed to honor her commitment. After that she decided that she was suicidal on wanted to take Ambien to kill herself. She had just been released from [facility] for psychiatric inpatient care the day before. Today she states that she is feeling better that she is not suicidal. She is currently being evaluated by her behavioral health team and they have recommended adding Zyprexa to her regimen. They would like for her to have Zyprexa 2.5 mg every morning and Zyprexa 5 mg every night with added 1 mg Cogentin every day. O: Constitutional: Alert, no distress. Cardiac: Regular rate and rhythm, no murmurs, rubs, gallops Respiratory: Clear lungs. No wheezes, rhonchi, rales Abdomen: Soft, nondistended, nontender. Normal bowel sounds. Psych: Poor eye contact. Requests phone and when explained that she still on IVC is in her protocol does not allow for patients to have phones in room patient begins to cry. She denies SI. Discussed Zyprexa dosing with her and she also gets upset because she states that Zyprexa makes her gain weight Neuro: Cranial nerves II through XII intact no pronator drift. Patient has been ambulating about in the emergency department. She has no dysarthria. She is alert and oriented x3. A/P: Patient in the emergency department on IVC hold after she attempted to commit suicide using Ambien last night. She states that she is no longer suicidal however her behavioral health team is continuing to monitor her on IVC. We will start Zyprexa this evening. Continue to monitor closely.
[2019-01-03] MEDS ORDERED: OLANZAPINE 5 MG TABLET PO SCH (22:00)
[2019-01-04] MEDS ORDERED: OLANZAPINE 2.5 MG TABLET PO SCH (08:00)
[2019-01-04] MEDS ORDERED: BENZTROPINE MESYLATE 1 MG TABLET PO SCH (10:00)
--- NOTE | 2019-01-04 10:45 | PSYCHOLOGICAL NOTE ---
Psych Note - Psych Note Date seen by psych provider: 01/03/19 Time seen by psych provider: 08:20 - Chart review at 0820. Evaluation from 0930- 0935. Psych Note: Presenting Problem: 24 Hour IVC Petition, OD of 15 tablets of Ambien 10MG, Hx previous SI with ODs, was just discharged from [facility] 01/01/19 after inpatient hospitalization for OD. She was at a male friend's house that she met while at [facility], he found patient altered and confused so called /EMS. She told EMS and medical staff she wanted to and this was intentional because her father was angry with her for not following through on watching the dog and making other plans. Today patient reported "I was just trying to sleep." She denied intentional OD. She reported "I took 10 Ambien to sleep." She acknowledged "I remember taking the pills to sleep and then don't remember anything after that." She stated "I just want to go home." She confirmed her outpatient provider is still [facility] and admitted she was supposed to start therapy but has not yet. She reported she resided with a friend and gave permission to contact [facility] ([phone]) for planning. When patient was made aware she would be spending the night with medication adjustments she said "I need to call my job so they know I won't be coming in." She was given the opportunity to do so and this indicated future/forward thinking. Patient has been seen by [facility] previously, the last time was 08/18/18 by this clinician for similar etiology, she was held overnight with medication adjustments (Zyprexa 5MG BID, Cogentin 1MG QD), instructed to follow up with [facility] for medication and request therapy and included [facility] in plan of care (provided transportation). 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 Syeda MD., includes: Add Zyyprexa 2.5MG in the morning and 5MG at night for mood stabilization/impulse control Add Cogentin 1MG daily to curb tremor side effects often associated with antipsychotic medications Impression/Plan: Recommendation to maintain 24 Hour IVC Petition. Patient is well known to [facility] and the [facility] team. She has a Hx of OD where she has discrepancy in saying they were intentional SI attempts or trying to go to sleep. She was just discharged from [facility] for an inpatient hospitalization on 01/01/19. Holding overnight, doing medication adjustments and plan to discharge tomorrow. Will include [facility] in plan of care or any other adult patient identifies can be utilized. Her outpatient provider is [facility] for medication and she was supposed to have started therapy but admitted has not yet. Consulted with Dr. Perez regarding the management and care of patient. ED Physician in agreement with recommendations.
--- NOTE | 2019-01-04 10:49 | PSYCHOLOGICAL NOTE ---
Psych Note - Psych Note Date seen by psych provider: 01/04/19 Time seen by psych provider: 08:10 Psych Note: Reason for Consult: Intentional overdose Patient is a 23-year-old female with a history of psychiatric issues who presents emergency department for evaluation after an overdose. She states she intentionally did this. She overdosed on Ambien, believes she took about 15 pills. [facility] the day before she overdosed. Check-in conducted with patient Patient disclosed that she overdosed on Ambien after getting into a fight with her father. She reports that it was actually a misunderstanding over feeding his dog. Patient [facility] clinician notes patient overdosed on 01/02/2019. Patient states that she is unable to identify how many times she has been inpatient psychiatric treatment as it is been numerous. Patient states "I do not want to ." She confirms she sees a therapist however is only been there once but has an appointment coming up on 01/13/2019. Patient confirms she works full-time and will contact [facility] to see if she can move up that appointment. Clinician discussed symptoms and typical triggers of borderline personality disorder and the importance of engaging in therapeutic services to appropriately address abandonment issues and building positive coping skills. Patient appropriately engaged with clinician. She had euthymic mood with congruent affect as evidenced by smiling engaging with clinician. Patient reports that she feels good and is looking forward to getting back to work. Borderline personality disorder Medication recommendations per [facility]'s contracted psychiatrist Dr. Syeda RODRIGUEZ are as follows Zyprexa 2.5 mg every morning and 5 mg every evening Impression\\plan: Patient is recommended for rescind of IVC and is cleared from acute psychiatric services. Patient no longer meets IVC criteria per [place] GS 122C. Patient denies any thoughts of wanting to harm herself and engaged appropriately with evaluation. Patient was able to demonstrate insight into the events leading up to her intentional overdose. Originally during evaluation, she identified her trigger as getting into an argument with her father over feeding the dog. After evaluation of symptoms and past experiences she was able to identify the trigger was actually getting into an argument for the first time with her father. Patient identifies her father as a strong support and denies ever previously being an argument with him. Clinician provided psychoeducation on symptoms and typical triggers of someone with borderline personality disorder. Patient is recommended to engage in either CBT or DBT to help re- train her brain in interpreting her environment, understanding triggers and building positive coping skills. Medication recommendations have been provided which included adjustments to address both stabilization of mood and impulse control. Dr. Perez was consulted and the care management of this patient; attending physicians in agreement with recommendations and disposition.
--- NOTE | 2019-01-04 11:53 | ER Document Report ---
Doctor's Note Notes: 01/04/19 11:53 Patient is an afebrile, well-hydrated, 21-year-old female who presents for bipolar disorder and suicide attempt with Ambien. Vitals are acceptable without significant tachycardia, tachypnea, or hypoxia. PE is otherwise unremarkable. Patient's abdomen soft nontender throughout. Lungs clear to auscultation bilaterally. Patient is nontoxic-appearing and is tolerating p.o. without difficulty. Patient has no SI or HI. Patient has shown remorse for actions, and states that she does not want to . She has forward thinking and employment in her life in general. Labs are acceptable. No further work-up warranted at this time. Patient has been evaluated by our psychology team and has been cleared for discharge. She does have an appointment scheduled with [facility] in the next 1.5 weeks, but plans on calling them today to try to schedule her appointment sooner. Low suspicion for any sepsis, endocarditis, acute intracranial pathology, meningitis, fracture, acute abdomen, acute withdrawal, or other systemic infection at this time. Patient is aware that this condition can change from initial presentation and needs to monitor symptoms closely for any acute changes. Conservative measures otherwise for symptoms. Recheck with your PCM in 3-5 days or as needed otherwise. Return to the ED with any worsening/concerning symptoms otherwise as reviewed discharge. Patient is in agreement. I agree with our psychology team's impression and plan:
[2019-01-04 12:07] VITALS: BP 106/78
== END 2019-01-04 12:22 | disposition home or self-care (01) ==
LOC: ER 17:58
DX: T42.6X2A Poisoning by other antiepileptic and sedative-hypnotic drugs, intentional self-harm, initial encounter (principal); R40.0 Somnolence; Y92.009 Unspecified place in unspecified non-institutional (private) residence as the place of occurrence of the external cause; Z62.820 Parent-biological child conflict; F31.9 Bipolar disorder, unspecified; R00.0 Tachycardia, unspecified; F17.200 Nicotine dependence, unspecified, uncomplicated; Z88.0 Allergy status to penicillin
CPT/HCPCS: 93005; 36415; 80307 ×4; 84703; 85025; 80053; 81001; 93010; J3490 ×3; 99285

== ENCOUNTER 2019-01-14 17:18 | Emergency (ER) | payer MEDICAID ==
[2019-01-14 17:24] VITALS: BP 115/63
[2019-01-14 18:12] LABS: BACTERIA (WET MOUNT) 3+ BACTERIA SEEN; EPITHELIALS (WET MOUNT) 3+ EPITHELIALS SEEN; RBCS (WET MOUNT) FEW RBCS SEEN; T.VAGINALIS (WET MOUNT) NO TRICHOMONAS SEEN; WBCS (WET MOUNT) 3+ WBCS SEEN; YEAST (WET MOUNT) NO YEAST SEEN
[2019-01-14 18:17] LABS: APPEARANCE,URINE CLEAR; BILIRUBIN,URINE NEGATIVE (NEGATIVE); COLOR,URINE YELLOW; GLUCOSE, URINE NEGATIVE (NEGATIVE); KETONES,URINE NEGATIVE (NEGATIVE); PROTEIN,URINE NEGATIVE (NEGATIVE); URINE SPECIFIC GRAVITY 1.021; UROBILINOGEN,URINE NEGATIVE mg/dL (<2.0)
--- NOTE | 2019-01-14 18:27 | ER Document Report ---
HPI - HPI Time Seen by Provider: 01/14/19 17:26 Pain Level: Denies Notes: Patient is an otherwise healthy 23-year-old female presenting to the ED with complaints of low abdominal pain and white vaginal discharge. Patient reports symptoms started this morning. She denies any pelvic pain. She states that she typically gets these symptoms when she has a urinary tract infection or a yeast infection. Patient also concerned she could be . - REPRODUCTIVE Reproductive: DENIES: : Past Medical History - General Information source: Patient - Social History Smoking Status: Never Smoker Chew tobacco use (# tins/day): No Frequency of alcohol use: None Drug Abuse: None Family History: Reviewed & Not Pertinent Patient has suicidal ideation: No Patient has homicidal ideation: No - Past Medical History Cardiac Medical History: Denies: Hx Coronary Artery Disease, Hx Heart Attack, Hx Hypertension Pulmonary Medical History: Denies: Hx Asthma, Hx Bronchitis, Hx COPD, Hx Pneumonia Neurological Medical History: Denies: Hx Cerebrovascular Accident, Hx Seizures Renal/ Medical History: Denies: Hx Peritoneal Dialysis Musculoskeletal Medical History: Denies Hx Arthritis Psychiatric Medical History: Reports: Hx Bipolar Disorder, Hx Borderline Personality Disorder, Hx Depression Past Surgical History: Reports: Hx Oral Surgery. Denies: Hx Hysterectomy - Immunizations Immunizations up to date: Yes Hx Diphtheria, Pertussis, Tetanus Vaccination: Yes Vertical Provider Document - CONSTITUTIONAL Notes: PHYSICAL EXAMINATION: GENERAL: Well-appearing, well-nourished and in no acute distress. HEAD: Atraumatic, normocephalic. EYES: Pupils equal round and reactive to light, extraocular movements intact, conjunctiva are normal. ENT: Nares patent, oropharynx clear without exudates. Moist mucous membranes. NECK: Normal range of motion, supple without lymphadenopathy LUNGS: Breath sounds clear to auscultation bilaterally and equal. No wheezes rales or rhonchi. HEART: Regular rate and rhythm without murmurs ABDOMEN: Soft, nontender, nondistended abdomen. No guarding, no rebound. No masses appreciated. Female : Patient declined, self-swabbed. Musculoskeletal: Normal range of motion, no pitting or edema. No cyanosis. NEUROLOGICAL: Cranial nerves grossly intact. Normal speech, normal gait. Normal sensory, motor exams PSYCH: Normal mood, normal affect. SKIN: Warm, Dry, normal turgor, no rashes or lesions noted. - INFECTION CONTROL TRAVEL OUTSIDE OF THE [place] IN LAST 30 DAYS: No Course - Re-evaluation Re-evalutation: Labs as recorded above, patient will be started on treatment for bacterial vaginosis. ED or to return precautions were discussed, patient verbalizes understanding and agreement with same. Laboratory 01/14/19 01/14/19 01/14/19 17:49 17:49 17:49 Urine Color YELLOW Urine Appearance CLEAR Urine pH 6.0 Ur Specific [place] 1.021 Urine Protein NEGATIVE Urine Glucose (UA) NEGATIVE Urine Ketones NEGATIVE Urine Blood NEGATIVE Urine Nitrite (Reflex) NEGATIVE Urine Bilirubin NEGATIVE Urine Urobilinogen NEGATIVE Leukocyte Esterase Rfl SMALL H Urine RBC (Auto) 1 Urine Bacteria (Auto) TRACE Urine WBC (Reflex) 1 Squamous Epi Cells Auto 3 Urine Mucus (Auto) OCC Urine Ascorbic Acid NEGATIVE Urine HCG, Qual Epi Cells (Wet Prep) 3+ EPITHELIALS SEEN Bacteria (Wet Prep) 3+ BACTERIA SEEN Trichomonas (Wet Prep) NO TRICHOMONAS SEEN Vaginal WBC 3+ WBCS SEEN Vaginal RBC FEW RBCS SEEN Vaginal Yeast NO YEAST SEEN Chlamydia DNA (PCR) NOT DETECTED N.gonorrhoeae DNA (PCR) NOT DETECTED 01/14/19 19:01 Urine Color Urine Appearance Urine pH Ur Specific [place] Urine Protein Urine Glucose (UA) Urine Ketones Urine Blood Urine Nitrite (Reflex) Urine Bilirubin Urine Urobilinogen Leukocyte Esterase Rfl Urine RBC (Auto) Urine Bacteria (Auto) Urine WBC (Reflex) Squamous Epi Cells Auto Urine Mucus (Auto) Urine Ascorbic Acid Urine HCG, Qual NEGATIVE Epi Cells (Wet Prep) Bacteria (Wet Prep) Trichomonas (Wet Prep) Vaginal WBC Vaginal RBC Vaginal Yeast Chlamydia DNA (PCR) N.gonorrhoeae DNA (PCR) - Vital Signs Vital signs: Temp Pulse Resp BP Pulse Ox 98.3 F 70 20 115/63 97 01/14/19 17:23 01/14/19 17:23 01/14/19 17:23 01/14/19 17:23 01/14/19 17:23 - Laboratory Laboratory results interpreted by me: 01/14/19 17:49 Leukocyte Esterase Rfl SMALL H Discharge - Discharge Clinical Impression: Bacterial vaginosis Condition: Stable Disposition: HOME, SELF-CARE Additional Instructions: You have an overgrowth of natural vaginal bacteria, called bacterial vaginosis. You are being treated with an antibiotic called metronidazole. Do not drink alcohol while taking this medication. Complete all of the antibiotic even if your symptoms have resolved. Return for abdominal pain, vomiting, fever of greater than 101F, or any other symptoms that are worrisome to you. Please follow-up with your [facility] or primary care doctor as needed. Prescriptions: Metronidazole [Flagyl 500 mg Tablet] 500 mg PO BID #14 tablet Forms: Return to Work Referrals: ROGER BECKWITH FNP-C [Primary Care Provider] - Follow up as needed
[2019-01-14 19:38] LABS: CHLAM PCR NOT DETECTED (NOT DETECT)
== END 2019-01-14 19:03 | disposition home or self-care (01) ==
LOC: ER 17:18
DX: N76.0 Acute vaginitis (principal); B96.89 Other specified bacterial agents as the cause of diseases classified elsewhere; R10.30 Lower abdominal pain, unspecified
CPT/HCPCS: 81001; 81025; 87086; 87210; 87491; 87591; 99283

== ENCOUNTER 2019-01-31 12:20 | Emergency (ER) | payer MEDICAID ==
[2019-01-31 12:48] VITALS: BP 120/75
--- NOTE | 2019-01-31 13:21 | ER Document Report ---
HPI - HPI Time Seen by Provider: 01/31/19 13:01 Pain Level: 0 Context: Patient is a 23-year-old female who presents to the emergency department with a chief complaint of sore throat. Patient reports yesterday she developed a sore throat and white spots to the back of her tonsils. Patient denies fever, runny nose, ear pain, sick contacts. Patient denies cough. Patient denies a history of strep. Patient states she has not taken any Tylenol or ibuprofen as she is not currently in pain. - CONSTITUTIONAL Constitutional: DENIES: Fever, Chills - EENT EENT: REPORTS: Sore Throat - REPRODUCTIVE Reproductive: DENIES: : Past Medical History - General Information source: Patient - Social History Smoking Status: Never Smoker Frequency of alcohol use: None Drug Abuse: None Lives with: Family Family History: Reviewed & Not Pertinent Patient has suicidal ideation: No Patient has homicidal ideation: No - Past Medical History Cardiac Medical History: Reports: None Denies: Hx Coronary Artery Disease, Hx Heart Attack, Hx Hypertension Pulmonary Medical History: Reports: None Denies: Hx Asthma, Hx Bronchitis, Hx COPD, Hx Pneumonia EENT Medical History: Reports: None Neurological Medical History: Reports: None. Denies: Hx Cerebrovascular Accident, Hx Seizures Endocrine Medical History: Reports: None Renal/ Medical History: Reports: None. Denies: Hx Peritoneal Dialysis Malignancy Medical History: Reports: None GI Medical History: Reports: None Musculoskeletal Medical History: Reports None, Denies Hx Arthritis Psychiatric Medical History: Reports: Hx Bipolar Disorder, Hx Borderline Personality Disorder, Hx Depression Traumatic Medical History: Reports: None Infectious Medical History: Reports: None Past Surgical History: Reports: Hx Oral Surgery. Denies: Hx Hysterectomy - Immunizations Immunizations up to date: Yes Hx Diphtheria, Pertussis, Tetanus Vaccination: Yes Vertical Provider Document - CONSTITUTIONAL Agree With Documented VS: Yes Exam Limitations: No Limitations General Appearance: No Apparent Distress - INFECTION CONTROL TRAVEL OUTSIDE OF THE [place] IN LAST 30 DAYS: No - HEENT HEENT: Atraumatic, Normocephalic, PERRLA Notes: Patient has +1 tonsillar hypertrophy bilaterally. Erythema noted to bilateral tonsils. Uvula is midline. - NECK Neck: Normal Inspection - RESPIRATORY Respiratory: Breath Sounds Normal, No Respiratory Distress - CARDIOVASCULAR Cardiovascular: Regular Rate, Regular Rhythm - GI/ABDOMEN Gastrointestinal: Abdomen Soft, Abdomen Non-Tender, Normal Bowel Sounds - MUSCULOSKELETAL/EXTREMETIES Musculoskeletal/Extremeties: FROM - NEURO Level of Consciousness: Awake, Alert, Appropriate - DERM Integumentary: Warm, Dry, No Rash Course - Re-evaluation Re-evalutation: 01/31/19 13:25 Patient strep test was negative. I did inform the patient that we do send off a culture and she will be contacted if she requires antibiotics in the next 48 hours. Patient use Tylenol and ibuprofen as needed for pain. Patient encouraged to stay hydrated and drink plenty of fluids. Patient nontoxic- appearing. Patient's not tachycardic, hypotensive or febrile at this time. Patient given strict return precautions. - Vital Signs Vital signs: Temp Pulse Resp BP Pulse Ox 98.5 F 88 16 120/75 100 01/31/19 12:45 01/31/19 12:45 01/31/19 12:45 01/31/19 12:45 01/31/19 12:45 - Laboratory Laboratory results interpreted by me: 01/31/19 13:25 Laboratory 01/31/19 12:36 Group A Strep Rapid NEGATIVE Discharge - Discharge Clinical Impression: Sore throat Condition: Stable Disposition: HOME, SELF-CARE Additional Instructions: *Today you are seen in the emergency department for a sore throat. Your strep test was negative. A culture has been sent to the lab and should result within the next 48 hours. If this is positive you will be contacted via telephone to be placed on oral antibiotics. Please continue to use Tylenol and ibuprofen as needed for pain. To relieve the symptoms you can also sip clear liquids frequently to stay hydrated and eat Popsicle or ice chips. You can also use a anesthetic sprays or lozenges that you can get [id number]. *At this time you do not require any antibiotics. Sore Throat Sore throats may be caused by viruses, bacteria, or fungi. Most are due to a virus, and must get better on their own. Bacterial sore throats, particularly those due to "strep," need treatment with antibiotics. If an antibiotic is prescribed, be sure to take the medication for a full 10 days. Failure to take the antibiotic can result in complications such as rheumatic fever. Sometimes, an injection of antibiotics is given instead of pills or liquid. This single "shot" is equal in effectiveness to the oral medication. To relieve symptoms, take acetaminophen for pain. Sip clear liquids frequently, or eat popsicles or ice chips. Anesthetic sprays or lozenges may help. Make sure the air in the room is not too dry. Avoid using decongestants or antihistamines. Call the doctor if there is no improvement in two days, or if you have difficulty breathing, increasing throat pain, high fever, rash, or frequent vomiting. Forms: Return to Work Referrals: ROGER BECKWITH FNP-C [Primary Care Provider] - Follow up as needed
== END 2019-01-31 13:35 | disposition home or self-care (01) ==
LOC: ER 12:20
DX: J02.9 Acute pharyngitis, unspecified (principal); J35.1 Hypertrophy of tonsils
CPT/HCPCS: 87070; 87880; 99283

== ENCOUNTER 2019-03-21 21:19 | Emergency (ER) | payer MEDICAID ==
[2019-03-22 00:24] LABS: APPEARANCE,URINE SLIGHTLY-CLOUDY; BILIRUBIN,URINE NEGATIVE (NEGATIVE); COLOR,URINE YELLOW; GLUCOSE, URINE NEGATIVE (NEGATIVE); KETONES,URINE 80 mg/dL (NEGATIVE); LEUKOCYTE ESTERASE,URINE MODERATE (NEGATIVE); NITRITE,URINE NEGATIVE (NEGATIVE); PROTEIN,URINE NEGATIVE (NEGATIVE); URINE SPECIFIC GRAVITY 1.017; UROBILINOGEN,URINE NEGATIVE mg/dL (<2.0)
[2019-03-22 00:36] LABS: URINE AMPHETAMINES SCREEN NEGATIVE; URINE BARBITURATES SCREEN NEGATIVE; URINE BENZODIAZEPINES SCREEN NEGATIVE; URINE COCAINE SCREEN NEGATIVE; URINE MARIJUANA (THC) SCREEN NEGATIVE; URINE METHADONE SCREEN NEGATIVE; URINE PHENCYCLIDINE SCREEN NEGATIVE
[2019-03-22 00:41] LABS: ABSOLUTE BASOPHILS # (AUTO) 0.1 10^3/uL (0.0-0.2); ABSOLUTE EOSINOPHILS # (AUTO) 0.1 10^3/uL (0.0-0.6); ABSOLUTE LYMPHOCYTES (AUTO) 2.3 10^3/uL (0.5-4.7); ABSOLUTE MONOCYTES (AUTO) 0.5 10^3/uL (0.1-1.4); ABSOLUTE NEUT (AUTO) 6.1 10^3/uL (1.7-8.2); BASOPHILS % (AUTO) 0.7 % (0-2); EOSINOPHILS % (AUTO) 0.7 % (0-6); HEMATOCRIT 42.1 % (36.0-47.0); HEMOGLOBIN 14.6 g/dL (12.0-15.5); LYMPHOCYTES % (AUTO) 25.7 % (13-45); MEAN CORPUSCULAR HGB CONC 34.6 g/dL (32.0-36.0); MEAN CORPUSCULAR VOLUME 84 fl (80-97); MONOCYTES % (AUTO) 5.7 % (3-13); PLATELET COUNT 243 10^3/uL (150-450); RED BLOOD COUNT 5.03 10^6/uL (3.72-5.28); RED CELL DISTRIBUTION WIDTH 13.2 % (11.5-14.0); SEGMENTED NEUTROPHILS % (AUTO) 67.2 % (42-78); TOTAL CELLS COUNTED % (AUTO) 100 %; WHITE BLOOD COUNT 9.1 10^3/uL (4.0-10.5)
[2019-03-22 00:56] LABS: ALBUMIN 4.7 g/dL (3.5-5.0); ALKALINE PHOSPHATASE 54 U/L (38-126); ANION GAP 15 (5-19); ASPARTATE AMINO TRANSFERASE 25 U/L (14-36); BILIRUBIN,DIRECT 0.2 mg/dL (0.0-0.4); BILIRUBIN,TOTAL 0.7 mg/dL (0.2-1.3); BLOOD UREA NITROGEN 6 mg/dL (7-20); CALCIUM 9.8 mg/dL (8.4-10.2); CARBON DIOXIDE 22 mmol/L (22-30); CHLORIDE 103 mmol/L (98-107); GLUCOSE 106 mg/dL (75-110); POTASSIUM 3.9 mmol/L (3.6-5.0); TOTAL PROTEIN 8.1 g/dL (6.3-8.2)
[2019-03-22 00:57] LABS: ACETAMINOPHEN < 10 ug/mL (10-30); ALCOHOL < 10 mg/dL (NONE DETECTED); SALICYLATE < 1.0 mg/dL (2.0-20.0)
--- NOTE | 2019-03-22 01:21 | ER Document Report ---
ED General - General Chief Complaint: Psych Problem Stated Complaint: IVC Primary Care Provider: ROGER BECKWITH FNP-C [Primary Care Provider] - Follow up as needed TRAVEL OUTSIDE OF THE [place] IN LAST 30 DAYS: No - Related Data Allergies/Adverse Reactions: Penicillins Allergy (Unknown, Verified 01/14/19 17:35) unknown Home Medications: sertraline Past Medical History - Social History Smoking Status: Unknown if Ever Smoked Family History: Reviewed & Not Pertinent Patient has suicidal ideation: Yes Patient has homicidal ideation: No - Past Medical History Cardiac Medical History: Denies: Hx Coronary Artery Disease, Hx Heart Attack, Hx Hypertension Pulmonary Medical History: Denies: Hx Asthma, Hx Bronchitis, Hx COPD, Hx Pneumonia Neurological Medical History: Denies: Hx Cerebrovascular Accident, Hx Seizures Renal/ Medical History: Denies: Hx Peritoneal Dialysis Musculoskeletal Medical History: Denies Hx Arthritis Psychiatric Medical History: Reports: Hx Bipolar Disorder, Hx Borderline Personality Disorder, Hx Depression Past Surgical History: Reports: Hx Oral Surgery. Denies: Hx Hysterectomy - Immunizations Immunizations up to date: Yes Hx Diphtheria, Pertussis, Tetanus Vaccination: Yes Physical Exam - Vital signs Vitals: Temp Pulse BP Pulse Ox 98.2 F 88 112/71 100 03/21/19 21:27 03/21/19 21:27 03/21/19 21:27 03/21/19 21:27 - Notes Notes: Patient was sent in from mental health for evaluation of suicidal ideations. Patient says he has been think about hurting himself in the past 2 days. Says walking front of traffic. Says he got this way because of the increasing pain on his left leg. He has attempted suicide in the past. He discharged from the hospital was diagnosed with DVT in the left leg and supposed be on Eliquis he said he stopped taking it yesterday because it did not seem to help. He was given a prescription of Ultram which he has not filled. Has been seen here ago because of lower extremity edema treated with Lasix but apparently did not get his license filled either. When he fell he did not hit his head he denies any headaches or neck pain. No chest pain shortness of breath nausea vomiting or abdominal pain. Says he was drinking today Past medical history is significant for CHF prostatic hypertrophy CHF PND recent admission for a DVT left leg in the PE Social history smokes and drinks Review of systems pertinent positives and negatives in HPI otherwise all the systems were reviewed and acutely negative PHYSICIAN EXAM -vital signs are noted triage note and note from triage reviewed GENERAL: Well-appearing, well-nourished and in ____no acute distress__ HEAD: Atraumatic, normocephalic. EYES: Pupils equal round and reactive to light, extraocular movements intact, sclera anicteric, conjunctiva are normal. ENT: nares patent, oropharynx clear without exudates. Dry mucous membranes. NECK: supple without lymphadenopathy LUNGS: Breath sounds clear to auscultation bilaterally and equal. No wheezes rales or rhonchi. HEART: Rapid rate and regular rhythm without murmurs ABDOMEN: Soft, nontender, normoactive bowel sounds. EXTREMITIES: He is got lymphedema on the left lower extremity Doppler about the knee. With +4 edema. He also has a +3 edema to the knee and the right lower extremity. He has limited venous stasis changes. Some areas of increased wa rmth but no break in the skin or drainage pulses in his foot and good sensation his pelvis is stable from his most of the hip. He is got some tenderness diffusely about the left knee. The patella is nontender is full range of motion of the knee there is no laxity. Is got moderate moderate tenderness over the left anterior tibia ankle is nontender the compartments are swollen but not tense NEUROLOGICAL: He is alert and oriented x4. Speech is low but slow but he has no questions appropriately. He has symmetrical smile facial expressions. His motor strength is metric bilaterally in the upper lower extremities and his toes are downgoing PSYCH: Normal mood, normal affect. SKIN: Warm, Dry, normal turgor, no rashes or lesions noted. BACK-nontender in the midline Differential diagnosis includes alcohol intoxication fracture recurrent DVT abnormal electrolytes Course - Vital Signs Vital signs: Temp Pulse Resp BP Pulse Ox 98.2 F 88 112/71 100 03/21/19 21:27 03/21/19 21:27 03/21/19 21:27 03/21/19 21:27 - Laboratory Result Diagrams: 03/22/19 00:20 03/22/19 00:20 Laboratory results interpreted by me: 03/21/19 03/22/19 22:30 00:20 BUN 6 L Urine Ketones 80 H Ur Leukocyte Esterase MODERATE H Salicylates < 1.0 L Acetaminophen < 10 L Discharge - Discharge Referrals: ROGER BECKWITH, SOOT BLOWER-C [Primary Care Provider] - Follow up as needed
[2019-03-22] MEDS ORDERED: DEXTROSE 5%-1/2 NORMAL SALINE 1,000 ML IV ONE (03:22)
--- NOTE | 2019-03-22 03:22 | ER Document Report ---
ED General - General Chief Complaint: Psych Problem Stated Complaint: IVC Time Seen by Provider: 03/22/19 02:16 Primary Care Provider: ROGER BECKWITH FNP-C [Primary Care Provider] - Follow up as needed TRAVEL OUTSIDE OF THE [place] IN LAST 30 DAYS: No - Related Data Allergies/Adverse Reactions: Penicillins Allergy (Unknown, Verified 01/14/19 17:35) unknown Home Medications: sertraline Past Medical History - Social History Smoking Status: Unknown if Ever Smoked Family History: Reviewed & Not Pertinent Patient has suicidal ideation: Yes Patient has homicidal ideation: No - Past Medical History Cardiac Medical History: Denies: Hx Coronary Artery Disease, Hx Heart Attack, Hx Hypertension Pulmonary Medical History: Denies: Hx Asthma, Hx Bronchitis, Hx COPD, Hx Pneumonia Neurological Medical History: Denies: Hx Cerebrovascular Accident, Hx Seizures Renal/ Medical History: Denies: Hx Peritoneal Dialysis Musculoskeletal Medical History: Denies Hx Arthritis Psychiatric Medical History: Reports: Hx Bipolar Disorder, Hx Borderline Pers onality Disorder, Hx Depression Past Surgical History: Reports: Hx Oral Surgery. Denies: Hx Hysterectomy - Immunizations Immunizations up to date: Yes Hx Diphtheria, Pertussis, Tetanus Vaccination: Yes Physical Exam - Vital signs Vitals: Temp Pulse BP Pulse Ox 98.2 F 88 112/71 100 03/21/19 21:27 03/21/19 21:27 03/21/19 21:27 03/21/19 21:27 - Notes Notes: Patient was brought in by police with IVC papers. Was threatening people with a knife and threatening to kill herself. Does have a history of PTSD bipolar disorder and borderline personality. Is not Zoloft but has not been taking it. She has not been sleeping and eating well. And has had intermittent nausea and vomiting she denies any headaches chest pain shortness of breath, abdominal pain vaginal bleeding or dysuria Past medical history is negative for diabetes or hypertension Social history she does not smoke or drink at all. LMP was 2 months ago. She had a positive test and ultrasound that s hows a viable intrauterine Review of systems pertinent positives and negatives in HPI otherwise all the systems were reviewed and acutely negative PHYSICIAN EXAM -vital signs are noted triage note and note from triage reviewed GENERAL: Well-appearing, well-nourished and in _no acute disease HEAD: Atraumatic, normocephalic. EYES: Pupils equal round and reactive to light, extraocular movements intact, sclera anicteric, conjunctiva are normal. ENT: nares patent, oropharynx clear without exudates. Moist mucous membranes. NECK: supple without lymphadenopathy LUNGS: Breath sounds clear to auscultation bilaterally and equal. No wheezes rales or rhonchi. HEART: Regular rate and rhythm without murmurs ABDOMEN: Soft, nontender, normoactive bowel sounds. EXTREMITIES: No deformity, no edema. NEUROLOGICAL: He is alert and oriented x4 on answering all questions appropriately nonfocal neurological exam PSYCH: Flat affect withdrawn does not make eye contact answers with single words SKIN: Warm, Dry, normal turgor, no rasheS several superficial abrasions left forearm did not need stitches BACK-nontender in the midline Course - Re-evaluation Re-evalutation: 03/22/19 06:16 ED patient is remained stable she is been tolerating liquids here but she was given IV fluids and we will check her urine she was also given a dose of Macrobid Medical decision making patient presents with suicidal ideations. She is medically cleared psych consult - Vital Signs Vital signs: Temp Pulse Resp BP Pulse Ox 98.2 F 88 112/71 100 03/21/19 21:27 03/21/19 21:27 03/21/19 21:27 03/21/19 21:27 - Laboratory Result Diagrams: 03/22/19 00:20 03/22/19 00:20 Laboratory results interpreted by me: 03/21/19 03/22/19 22:30 00:20 BUN 6 L Urine Ketones 80 H Ur Leukocyte Esterase MODERATE H Salicylates < 1.0 L Acetaminophen < 10 L Discharge - Discharge Clinical Impression: Encounter for medical screening examination, Suicidal ideations, Intrauterine UTI (urinary tract infection) Qualifiers: Urinary tract infection type: acute cystitis Disposition: OTHER Instructions: Urinary Tract Infection ([facility]) Referrals: ROGER BECKWITH FNP-C [Primary Care Provider] - Follow up as needed
[2019-03-22] MEDS ORDERED: NORMAL SALINE 1000 ML 1,000 ML IV ONE ×2 (03:29→11:13)
[2019-03-22] MEDS ORDERED: DIPH/PERTUSS(ACELL)/TETANUS VAC/PF 0.5 ML SYR (>=10YO) IM ONE (03:34)
[2019-03-22] MEDS ORDERED: ACETAMINOPHEN 325 MG TABLET PO ONE (07:26)
[2019-03-22 07:43] LABS: APPEARANCE,URINE CLEAR; BILIRUBIN,URINE NEGATIVE (NEGATIVE); COLOR,URINE COLORLESS; GLUCOSE, URINE 50 mg/dL (NEGATIVE); KETONES,URINE NEGATIVE (NEGATIVE); LEUKOCYTE ESTERASE,URINE NEGATIVE (NEGATIVE); NITRITE,URINE NEGATIVE (NEGATIVE); PROTEIN,URINE NEGATIVE (NEGATIVE); URINE SPECIFIC GRAVITY 1.004; UROBILINOGEN,URINE NEGATIVE mg/dL (<2.0)
[2019-03-22] MEDS ORDERED: PROCHLORPERAZINE EDISYLATE INJ 10 MG/2 ML VIAL IV ONE (11:13)
[2019-03-22] MEDS ORDERED: DIPHENHYDRAMINE HCL 50 MG/ML VIAL IV ONE (11:13)
[2019-03-22] MEDS: NITROFURANTOIN MONOHYD/M-CRYST 100 MG CAPSULE PO SCH ×2 (11:32→17:52)
--- NOTE | 2019-03-22 14:20 | ER Document Report ---
Doctor's Note Notes: 03/22/19 10:50 PHYSICAL EXAMINATION: GENERAL: Well-appearing and in no acute distress. HEAD: Atraumatic, normocephalic. EYES: sclera anicteric, conjunctiva are normal. ENT: nares patent. Moist mucous membranes. No meningeal irritation symptoms. No sinus tenderness. NECK: Normal range of motion, supple without lymphadenopathy LUNGS: CTAB and equal. No wheezes rales or rhonchi. HEART: Regular rate and rhythm without murmurs ABDOMEN: Soft, nontender, normal bowel sounds, no guarding. EXTREMITIES: Normal range of motion, no pitting edema. No cyanosis. BACK: No midline tenderness, no step-off or deformity. No CVA tenderness NEUROLOGICAL: Cranial nerves grossly intact. Normal speech. PSYCH: Normal mood, normal affect. SKIN: Warm, Dry, normal turgor, no rashes or lesions noted Reviewed patient's diagnostic tests as well as notes. Patient medically clear for transfer discharge pending mental health evaluation. Patient complains of headache at this time for which she will be medicated. 03/22/19 14:20 Patient resting with eyes closed, arouses easily to voice. Headache pain resolved at this time.
--- NOTE | 2019-03-22 19:08 | PSYCHOLOGICAL NOTE ---
Psych Note - Psych Note Date seen by psych provider: 03/22/19 Time seen by psych provider: 09:20 Psych Note: Patient is a Patient is a 23 year old female who presents to ED via [facility]. Per IVC, patient was found in a dark room in a posititon with 2 knives in her possession. Patient is known to behavioral health. Patient is 7-8 weeks . Patient states she took herself off her Zoloft "because I felt like it." Patient was not engaged with clinician. Patient stated she was experiencing pain from a migraine. Medication recommendations per [facility] contracted psychiatrist Dr. Syeda RODRIGUEZ is as follows: NONE Impression/Plan: Patient is recommeded for continued IVC. Plan is to observe overnight for possible placement. Patient will be reevalated. Dr. Perez was consulted on the care and management of this patient; attending physician is in agreement with recommendations and disposition.
[2019-03-23] MEDS: NITROFURANTOIN MONOHYD/M-CRYST 100 MG CAPSULE PO SCH (09:25)
[2019-03-23 10:45] VITALS: BP 111/47
--- NOTE | 2019-03-23 11:08 | ER Document Report ---
Doctor's Note Notes: 03/23/19 11:07 evaluated patient. Patient without any complaints. Per psychiatric team, patient has been accepted to [facility].
--- NOTE | 2019-03-23 12:27 | PSYCHOLOGICAL NOTE ---
Psych Note - Psych Note Date seen by psych provider: 03/23/19 Time seen by psych provider: 08:15 Psych Note: Reason for Consult: IVC Patient is a Patient is a 23 year old female who presents to ED via [facility]. Per IVC, patient was found in a dark room in a position with 2 knives in her possession. Check in conducted with patient: Patient's mood and affect are blunted. she reports chronic suicidal ideation; however, is unable to explain why she decided to stop taking her medications. Patient is currently however she does not sight this as the reason. Patient does not make eye contact. Impression/Plan: Patient is recommended for continued IVC. Patient continues to present blunted. She has been accepted to [facility]; transportation has been requested. Dr. Perez was consulted on the care and management of this patient; attending physician is in agreement with recommendations and disposition.
== END 2019-03-23 13:57 ==
LOC: ER 21:19
DX: Z04.6 Encounter for general psychiatric examination, requested by authority (principal); O26.891 Other specified pregnancy related conditions, first trimester; R45.851 Suicidal ideations; R51 Headache; O23.11 Infections of bladder in pregnancy, first trimester; O99.341 Other mental disorders complicating pregnancy, first trimester; F31.9 Bipolar disorder, unspecified; T43.226A Underdosing of selective serotonin reuptake inhibitors, initial encounter; Z91.128 Patient's intentional underdosing of medication regimen for other reason; Z91.14 Patient's other noncompliance with medication regimen; Z88.0 Allergy status to penicillin; Z75.1 Person awaiting admission to adequate facility elsewhere; Z3A.00 Weeks of gestation of pregnancy not specified
CPT/HCPCS: 99285; 96361; 90471; 96374; 96375; 36415; 87086; 80307 ×4; 85025; 80053; 81001; 90715; J3490 ×3; J1200; J0780; J7030; J8499

== ENCOUNTER 2019-04-04 07:38 | Day surgery (SDC) | payer MEDICAID, OTHER ==
[2019-04-04 08:07] LABS: HEMATOCRIT 40.4 % (36.0-47.0); HEMOGLOBIN 13.9 g/dL (12.0-15.5); MEAN CORPUSCULAR HEMOGLOBIN 28.7 pg (27.0-33.4); MEAN CORPUSCULAR HGB CONC 34.4 g/dL (32.0-36.0); MEAN CORPUSCULAR VOLUME 83 fl (80-97); PLATELET COUNT 291 10^3/uL (150-450); RED BLOOD COUNT 4.84 10^6/uL (3.72-5.28); RED CELL DISTRIBUTION WIDTH 13.3 % (11.5-14.0); WHITE BLOOD COUNT 7.6 10^3/uL (4.0-10.5)
[2019-04-04 08:42] LABS: APPEARANCE,URINE CLOUDY; BILIRUBIN,URINE NEGATIVE (NEGATIVE); COLOR,URINE YELLOW; GLUCOSE, URINE NEGATIVE (NEGATIVE); KETONES,URINE NEGATIVE (NEGATIVE); LEUKOCYTE ESTERASE,URINE LARGE (NEGATIVE); NITRITE,URINE NEGATIVE (NEGATIVE); PROTEIN,URINE 30 mg/dL (NEGATIVE); URINE SPECIFIC GRAVITY 1.026; UROBILINOGEN,URINE NEGATIVE mg/dL (<2.0)
[2019-04-04] MEDS ORDERED: FENTANYL CITRATE INJ/PF 100 MCG/2 ML AMPUL ONE (10:50)
[2019-04-04] MEDS ORDERED: MIDAZOLAM 2 MG/2 ML INJ ONE (10:51)
[2019-04-04] MEDS ORDERED: DEXMEDETOMIDINE INJ 80 MCG/20 ML VIAL IV ONE (10:51)
[2019-04-04] MEDS ORDERED: PROPOFOL INJ 200 MG/20 ML VIAL IV ONE ×2 (10:51→10:52)
[2019-04-04] MEDS ORDERED: ONDANSETRON HCL INJ/PF 4 MG/2 ML SDV ONE (10:51)
[2019-04-04] MEDS ORDERED: IBUPROFEN 800 MG TABLET PO PRN (12:24)
[2019-04-04] MEDS ORDERED: RINGERS SOLUTION,LACTATED 1,000 ML IV PRN (12:25)
[2019-04-04] MEDS ORDERED: OXYCODONE-ACETAMINOPHEN 5-325 MG TABLET PO PRN ×2 (12:25)
[2019-04-04 13:32] VITALS: BP 101/63
== END 2019-04-04 13:40 | disposition home or self-care (01) ==
LOC: OROUT 07:38
PROVIDERS: ATTEND Obstetrics & Gynecology
DX: O02.1 Missed abortion (principal)
CPT/HCPCS: 86900; 86901; 36415; 86850; 85027; 81001; 88305 ×2; 59820; J2790; J2250; J3010; J2405; J2704; J3490

== ENCOUNTER 2019-05-04 23:46 | Emergency (ER) | payer MEDICAID ==
[2019-05-05 00:16] VITALS: BP 115/63
--- NOTE | 2019-05-05 00:41 | ER Document Report ---
ED Medical Screen (RME) - General Chief Complaint: Vaginal Discharge Stated Complaint: VAGINAL DISCHARGE Time Seen by Provider: 05/05/19 00:40 Primary Care Provider: ROGER BECKWITH FNP-C [Primary Care Provider] - Follow up as needed Notes: 24-year-old female presents for increased vaginal discharge that started this past week. Patient also states she went to the bathroom tonight and states there was an odor to her urine that "smelled like a chemical." Patient is unsure of possible STD and states she is sexually active. Denies any abdominal pain, nausea or vomiting. Patient is nontoxic, well-appearing ambulates without difficulty. I have greeted and performed a rapid initial assessment of this patient. A comprehensive ED assessment and evaluation of the patient, analysis of test results and completion of the medical decision making process with be conducted by additional ED providers. TRAVEL OUTSIDE OF THE [place] IN LAST 30 DAYS: No - Related Data Allergies/Adverse Reactions: Penicillins Allergy (Unknown, Verified 05/05/19 00:38) unknown Past Medical History - Past Medical History Cardiac Medical History: Denies: Hx Coronary Artery Disease, Hx Heart Attack, Hx Hypertension Pulmonary Medical History: Denies: Hx Asthma, Hx Bronchitis, Hx COPD, Hx Pneumonia Neurological Medical History: Denies: Hx Cerebrovascular Accident, Hx Seizures Renal/ Medical History: Denies: Hx Peritoneal Dialysis Musculoskeltal Medical History: Denies Hx Arthritis Psychiatric Medical History: Reports: Hx Bipolar Disorder, Hx Borderline Personality Disorder, Hx Depression Past Surgical History: Reports: Hx Oral Surgery. Denies: Hx Hysterectomy - Immunizations Immunizations up to date: Yes Hx Diphtheria, Pertussis, Tetanus Vaccination: Yes Physical Exam - Vital signs Vitals: Temp Pulse Resp BP Pulse Ox 98.8 F 65 16 115/63 98 05/05/19 00:15 05/05/19 00:15 05/05/19 00:15 05/05/19 00:15 05/05/19 00:15 Course - Vital Signs Vital signs: Temp Pulse Resp BP Pulse Ox 98.8 F 65 16 115/63 98 05/05/19 00:15 05/05/19 00:15 05/05/19 00:15 05/05/19 00:15 05/05/19 00:15 Doctor's Discharge - Discharge Referrals: GILBERT,STORMY, CLINICAL DOCUMENTATION MANAGER-C [Primary Care Provider] - Follow up as needed
[2019-05-05 01:06] LABS: BACTERIA (WET MOUNT) 3+ BACTERIA SEEN; RBCS (WET MOUNT) RARE RBCS SEEN; T.VAGINALIS (WET MOUNT) NO TRICHOMONAS SEEN; WBCS (WET MOUNT) 1+ WBCS SEEN; YEAST (WET MOUNT) NO YEAST SEEN
[2019-05-05 01:18] LABS: APPEARANCE,URINE SLIGHTLY-CLOUDY; BILIRUBIN,URINE NEGATIVE (NEGATIVE); COLOR,URINE YELLOW; GLUCOSE, URINE NEGATIVE (NEGATIVE); KETONES,URINE NEGATIVE (NEGATIVE); PROTEIN,URINE NEGATIVE (NEGATIVE); URINE SPECIFIC GRAVITY 1.024; UROBILINOGEN,URINE NEGATIVE mg/dL (<2.0)
[2019-05-05] MEDS ORDERED: METRONIDAZOLE 500 MG TABLET PO ONE (01:32)
--- NOTE | 2019-05-05 01:34 | ER Document Report ---
HPI - HPI Time Seen by Provider: 05/05/19 00:40 Pain Level: Denies Notes: 24-year-old female patient presents emergency department chief complaint of abnormal vaginal discharge. Patient denies any pelvic pain or abdominal pain. Denies any nausea, vomiting or diarrhea. She states that she noticed an abnormal smell earlier. Patient has a history of bacterial vaginosis. - REPRODUCTIVE Reproductive: REPORTS: Abnormal bleeding / discharge. DENIES: :, Postmenopausal Past Medical History - General Information source: Patient - Social History Smoking Status: Never Smoker Family History: Reviewed & Not Pertinent Patient has suicidal ideation: No Patient has homicidal ideation: No - Past Medical History Cardiac Medical History: Denies: Hx Coronary Artery Disease, Hx Heart Attack, Hx Hypertension Pulmonary Medical History: Denies: Hx Asthma, Hx Bronchitis, Hx COPD, Hx Pneumonia Neurological Medical History: Denies: Hx Cerebrovascular Accident, Hx Seizures Renal/ Medical History: Denies: Hx Peritoneal Dialysis Musculoskeletal Medical History: Denies Hx Arthritis Psychiatric Medical History: Reports: Hx Bipolar Disorder, Hx Borderline Personality Disorder, Hx Depression Past Surgical History: Reports: Hx Oral Surgery. Denies: Hx Hysterectomy - Immunizations Immunizations up to date: Yes Hx Diphtheria, Pertussis, Tetanus Vaccination: Yes Vertical Provider Document - CONSTITUTIONAL Notes: PHYSICAL EXAMINATION: GENERAL: Well-appearing, well-nourished and in no acute distress. HEAD: Atraumatic, normocephalic. EYES: Pupils equal round extraocular movements intact, conjunctiva are normal. ENT: Nares patent NECK: Normal range of motion LUNGS: No respiratory distress Musculoskeletal: Normal range of motion NEUROLOGICAL: Normal speech, normal gait. PSYCH: Normal mood, normal affect. SKIN: Warm, Dry, normal turgor, no rashes or lesions noted. - INFECTION CONTROL TRAVEL OUTSIDE OF THE [place] IN LAST 30 DAYS: No Course - Re-evaluation Re-evalutation: Patient performed self swab, evidence of bacterial vaginosis noted. Chlamydia and gonorrhea are pending. Patient does not want empiric treatment for STDs. She would rather be called with results by the culture nurse. - Vital Signs Vital signs: Temp Pulse Resp BP Pulse Ox 98.8 F 65 16 115/63 98 05/05/19 00:15 05/05/19 00:15 05/05/19 00:15 05/05/19 00:15 05/05/19 00:15 - Laboratory Laboratory results interpreted by me: 05/05/19 00:50 Leukocyte Esterase Rfl TRACE H Urine Ascorbic Acid 20 H Discharge - Discharge Clinical Impression: Bacterial vaginosis Condition: Stable Disposition: HOME, SELF-CARE Additional Instructions: You have an overgrowth of natural vaginal bacteria, called bacterial vaginosis. You are being treated with an antibiotic called metronidazole. Do not drink alcohol while taking this medication. Complete all of the antibiotic even if your symptoms have resolved. Return for abdominal pain, vomiting, fever of greater than 101F, or any other symptoms that are worrisome to you. Please follow-up with your SUPPLY CHAIN TECHNICIAN or primary care doctor as needed. Prescriptions: Metronidazole [Flagyl 500 mg Tablet] 500 mg PO BID #14 tablet Referrals: ROGER BECKWITH FNP-C [Primary Care Provider] - Follow up as needed
[2019-05-05 02:38] LABS: CHLAM PCR NOT DETECTED (NOT DETECT)
== END 2019-05-05 01:40 | disposition home or self-care (01) ==
LOC: ER 23:46
DX: N76.0 Acute vaginitis (principal); B96.89 Other specified bacterial agents as the cause of diseases classified elsewhere
CPT/HCPCS: 81001; 81025; 87210; 87491; 87591

== ENCOUNTER 2019-05-16 01:49 | Emergency (ER) | payer MEDICAID ==
[2019-05-16 03:06] LABS: ABSOLUTE BASOPHILS # (AUTO) 0.1 10^3/uL (0.0-0.2); ABSOLUTE EOSINOPHILS # (AUTO) 0.1 10^3/uL (0.0-0.6); ABSOLUTE LYMPHOCYTES (AUTO) 2.1 10^3/uL (0.5-4.7); ABSOLUTE MONOCYTES (AUTO) 0.6 10^3/uL (0.1-1.4); ABSOLUTE NEUT (AUTO) 4.6 10^3/uL (1.7-8.2); BASOPHILS % (AUTO) 0.9 % (0-2); EOSINOPHILS % (AUTO) 1.6 % (0-6); HEMATOCRIT 41.7 % (36.0-47.0); HEMOGLOBIN 14.3 g/dL (12.0-15.5); LYMPHOCYTES % (AUTO) 28.4 % (13-45); MEAN CORPUSCULAR HEMOGLOBIN 28.9 pg (27.0-33.4); MEAN CORPUSCULAR HGB CONC 34.3 g/dL (32.0-36.0); MEAN CORPUSCULAR VOLUME 84 fl (80-97); MONOCYTES % (AUTO) 7.9 % (3-13); PLATELET COUNT 239 10^3/uL (150-450); RED BLOOD COUNT 4.95 10^6/uL (3.72-5.28); SEGMENTED NEUTROPHILS % (AUTO) 61.2 % (42-78); TOTAL CELLS COUNTED % (AUTO) 100 %; WHITE BLOOD COUNT 7.4 10^3/uL (4.0-10.5)
[2019-05-16 03:17] LABS: APPEARANCE,URINE CLEAR; BILIRUBIN,URINE NEGATIVE (NEGATIVE); COLOR,URINE STRAW; GLUCOSE, URINE NEGATIVE (NEGATIVE); KETONES,URINE NEGATIVE (NEGATIVE); LEUKOCYTE ESTERASE,URINE NEGATIVE (NEGATIVE); NITRITE,URINE NEGATIVE (NEGATIVE); PROTEIN,URINE NEGATIVE (NEGATIVE); URINE SPECIFIC GRAVITY 1.003; UROBILINOGEN,URINE NEGATIVE mg/dL (<2.0)
[2019-05-16 03:25] LABS: ALBUMIN 4.6 g/dL (3.5-5.0); ALKALINE PHOSPHATASE 63 U/L (38-126); ANION GAP 10 (5-19); ASPARTATE AMINO TRANSFERASE 26 U/L (14-36); BILIRUBIN,TOTAL 0.2 mg/dL (0.2-1.3); BLOOD UREA NITROGEN 6 mg/dL (7-20); CALCIUM 9.2 mg/dL (8.4-10.2); CARBON DIOXIDE 24 mmol/L (22-30); CHLORIDE 105 mmol/L (98-107); GLUCOSE 114 mg/dL (75-110); POTASSIUM 4.1 mmol/L (3.6-5.0); TOTAL PROTEIN 7.8 g/dL (6.3-8.2)
--- NOTE | 2019-05-16 06:52 | ER Document Report ---
ED General - General Chief Complaint: Abdominal Pain Stated Complaint: ABDOMINAL PAIN AND PAIN WHEN URINATING Time Seen by Provider: 05/16/19 06:14 TRAVEL OUTSIDE OF THE [place] IN LAST 30 DAYS: No - HPI Notes: Patient is a 24-year-old female who presents emergency department for evaluation. She was seen here in the emergency department recently. She states she was complaining of vaginal discharge, was diagnosed with bacterial vaginosis. She took the antibiotics but she states this not improved. She states now when she urinates she has external burning. She denies any fevers or chills. No nausea or vomiting. Normal bowel movements. She is currently sexually active. She admits to being sexually active after treatment for BV. She states she really only has pain with urination. She cannot describe the vaginal discharge for me. She is asked if she has any lesions or redness in the area, and she states she is not sure. - Related Data Allergies/Adverse Reactions: Penicillins Allergy (Unknown, Verified 05/16/19 08:33) unknown Home Medications: Depakote. prazosin. seraquil. zoloft Past Medical History - General Information source: Patient - Social History Smoking Status: Never Smoker Chew tobacco use (# tins/day): No Frequency of alcohol use: None Drug Abuse: None, Prescription drugs Family History: Reviewed & Not Pertinent Patient has suicidal ideation: No Patient has homicidal ideation: No - Past Medical History Cardiac Medical History: Denies: Hx Coronary Artery Disease, Hx Heart Attack, Hx Hypertension Pulmonary Medical History: Denies: Hx Asthma, Hx Bronchitis, Hx COPD, Hx Pneumonia Neurological Medical History: Denies: Hx Cerebrovascular Accident, Hx Seizures Renal/ Medical History: Denies: Hx Peritoneal Dialysis Musculoskeletal Medical History: Denies Hx Arthritis Psychiatric Medical History: Reports: Hx Bipolar Disorder, Hx Borderline Personality Disorder, Hx Depression Past Surgical History: Reports: Hx Oral Surgery. Denies: Hx Hysterectomy - Immunizations Immunizations up to date: Yes Hx Diphtheria, Pertussis, Tetanus Vaccination: Yes Review of Systems - Review of Systems Female Genitourinary: See HPI -: Yes All other systems reviewed and negative Physical Exam - Vital signs Vitals: Temp Pulse Resp BP Pulse Ox 98.0 F 64 20 119/63 99 05/16/19 01:53 05/16/19 01:53 05/16/19 01:53 05/16/19 01:53 05/16/19 01:53 - Notes Notes: Vital signs reviewed, please refer to chart. Head is normocephalic, atraumatic. Pupils equal round, reactive to light. Neck is supple without meningismus. Heart is regular rate and rhythm. Lungs are clear to auscultation bilaterally. Abdomen is soft, nontender, normoactive bowel sounds throughout. Extremities without cyanosis, clubbing. Posterior calves are nontender. Peripheral pulses are equal. Skin is warm and dry. Patient is awake, alert, neurological exam is nonfocal. Pelvic exam was performed PCT Merlyn present. A moderate amount of vaginal discharge is noted, no odor or frothing. No cervical motion tenderness. No significant external lesions appreciated. Course - Re-evaluation Re-evalutation: 05/16/19 06:51 Patient presents to the emergency department for evaluation. Her primary complaint is vaginal discharge/external genitalia burning. Pelvic set up as ordered. We will continue to monitor. Her blood work and labs are entirely unremarkable. 05/16/19 08:39 Pelvic exam performed. Patient declined any GC or chlamydia treatment empirically. Awaiting wet prep results, patient is stable. 05/16/19 09:19 Patient's wet prep was largely unremarkable. On further questioning, the patient admitted to using strongly perfumed soaps in that area. That may have just caused her some external irritation, leading to the dysuria she was having. She was advised to discontinue this. She was advised to use only unscented gentle soaps, no antibacterial soaps, see if this helped her symptoms. She voiced understanding and the patient was discharged. - Vital Signs Vital signs: Temp Pulse Resp BP Pulse Ox 98.2 F 83 16 110/63 99 05/16/19 10:00 05/16/19 10:00 05/16/19 10:00 05/16/19 10:00 05/16/19 10:00 - Laboratory Result Diagrams: 05/16/19 02:47 05/16/19 02:52 Laboratory results interpreted by me: 05/16/19 02:52 BUN 6 L Glucose 114 H Discharge - Discharge Clinical Impression: Dysuria Condition: Stable Disposition: HOME, SELF-CARE Additional Instructions: Use unscented, non-antibacterial soaps as discussed. Stay well-hydrated. Some of your tests are still pending at this time. You will be contacted if any kim ts become abnormal. Follow-up with your primary care provider this week. Return to the emergency department with worsening or new concerning symptoms of any sort.
[2019-05-16 08:48] LABS: T.VAGINALIS (WET MOUNT) NO TRICHOMONAS SEEN; WBCS (WET MOUNT) 1+ WBCS SEEN; YEAST (WET MOUNT) NO YEAST SEEN
[2019-05-16 10:08] VITALS: BP 110/63
[2019-05-16 10:20] LABS: CHLAM PCR NOT DETECTED (NOT DETECT)
== END 2019-05-16 10:08 | disposition home or self-care (01) ==
LOC: ER 01:49
DX: R30.0 Dysuria (principal); N89.8 Other specified noninflammatory disorders of vagina; F31.9 Bipolar disorder, unspecified; Z79.899 Other long term (current) drug therapy; Z88.0 Allergy status to penicillin
CPT/HCPCS: 36415; 80053; 81001; 81025; 83690; 85025; 87210; 87491; 87591; 99284

== ENCOUNTER 2019-05-19 22:55 | Emergency (ER) | payer MEDICAID ==
[2019-05-19 23:06] VITALS: BP 138/73
--- NOTE | 2019-05-19 23:21 | ER Document Report ---
ED ENT - General Chief Complaint: Sore Throat Stated Complaint: THROAT ISSUES Time Seen by Provider: 05/19/19 23:12 Mode of Arrival: Ambulatory Information source: Patient Notes: 24-year-old female presents the ED for sore throat pain when she coughs and coughing up something that is thick and white. She is alert oriented respirations regular nonlabored speaking in full sentences walks with a even steady gait. TRAVEL OUTSIDE OF THE [place] IN LAST 30 DAYS: No - HPI Patient complains to provider of: Throat problem Onset: This morning Onset/Duration: Gradual Quality of pain: Sharp Severity: Moderate Pain Level: 2 Location of pain: Throat Associated symptoms: Cough, Sore throat Similar symptoms previously: Yes Recently seen / treated by doctor: Yes - Related Data Allergies/Adverse Reactions: Penicillins Allergy (Unknown, Verified 05/16/19 08:33) unknown Past Medical History - General Information source: Patient - Social History Smoking Status: Never Smoker Frequency of alcohol use: None Drug Abuse: None Family History: Reviewed & Not Pertinent Patient has suicidal ideation: No - Past Medical History Cardiac Medical History: Reports: None Pulmonary Medical History: Reports: None EENT Medical History: Reports: None Neurological Medical History: Reports: None Endocrine Medical History: Reports: None Renal/ Medical History: Reports: None Malignancy Medical History: Reports: None GI Medical History: Reports: None Musculoskeletal Medical History: Reports None Skin Medical History: Reports None Psychiatric Medical History: Reports: Hx Bipolar Disorder, Hx Borderline Personality Disorder, Hx Depression Traumatic Medical History: Reports: None Infectious Medical History: Reports: None Past Surgical History: Reports: Hx Oral Surgery - Immunizations Immunizations up to date: Yes Hx Diphtheria, Pertussis, Tetanus Vaccination: Yes Review of Systems - Review of Systems EENT: Nose discharge, Throat pain Cardiovascular: No symptoms reported Respiratory: Cough Genitourinary: No symptoms reported Female Genitourinary: No symptoms reported Musculoskeletal: No symptoms reported Skin: No symptoms reported Hematologic/Lymphatic: No symptoms reported Neurological/Psychological: No symptoms reported -: Yes All other systems reviewed and negative Physical Exam - Vital signs Vitals: Temp Pulse Resp BP Pulse Ox 98.0 F 68 20 138/73 H 98 05/19/19 23:05 05/19/19 23:05 05/19/19 23:05 05/19/19 23:05 05/19/19 23:05 Interpretation: Normal - General General appearance: Appears well, Alert - HEENT Head: Normocephalic, Atraumatic Eyes: Normal Pupils: PERRL Ears: Normal External canal: Normal Tympanic membrane: Normal Sinus: Normal Nasal: Purulent discharge, Swelling Mouth/Lips: Other Pharynx: Erythema, Post nasal drainage, Other - Tonsil stones Neck: Normal - Respiratory Respiratory status: No respiratory distress Chest status: Nontender Breath sounds: Nonproductive cough Chest palpation: Normal - Cardiovascular Rhythm: Regular Heart sounds: Normal auscultation Murmur: No - Abdominal Inspection: Normal Distension: No distension Bowel sounds: Normal Tenderness: Nontender Organomegaly: No organomegaly - Back Back: Normal, Nontender - Extremities General upper extremity: Normal inspection, Nontender, Normal color, Normal ROM, Normal temperature General lower extremity: Normal inspection, Nontender, Normal color, Normal ROM, Normal temperature, Normal weight bearing. No: Megan's sign - Neurological Neuro grossly intact: Yes Cognition: Normal Orientation: AAOx4 Whately Coma Scale Eye Opening: Spontaneous Whately Coma Scale Verbal: Oriented Ritesh Coma Scale Motor: Obeys Commands Whately Coma Scale Total: 15 Speech: Normal Motor strength normal: LUE, RUE, LLE, RLE Sensory: Normal - Psychological Associated symptoms: Normal affect, Normal mood - Skin Skin Temperature: Warm Skin Moisture: Dry Skin Color: Normal Course - Re-evaluation Re-evalutation: 05/20/19 01:14 After performing a Medical Screening Examination, I estimate there is LOW risk for ACUTE CORONARY SYNDROME, RESPIRATORY FAILURE, SEPSIS OR MENINGITIS, thus I consider the discharge disposition reasonable. I have reevaluated this patient multiple times and no significant life threatening changes are noted. The patient and I have discussed the diagnosis and risks, and we agree with discharging home with close follow-up. We also discussed returning to the Emergency Department immediately if new or worsening symptoms occur. We have discussed the symptoms which are most concerning (e.g., changing or worsening pain, trouble swallowing or breathing, neck stiffness, fever) that necessitate i mmediate return. - Vital Signs Vital signs: Temp Pulse Resp BP Pulse Ox 98.0 F 68 20 138/73 H 98 05/19/19 23:05 05/19/19 23:05 05/19/19 23:05 05/19/19 23:05 02/27/20 23:05 Discharge - Discharge Clinical Impression: Viral sore throat, Tonsil stone URI (upper respiratory infection) Qualifiers: URI type: unspecified viral URI Qualified Code(s): J06.9 - Acute upper respiratory infection, unspecified Condition: Stable Disposition: HOME, SELF-CARE Additional Instructions: UPPER RESPIRATORY ILLNESS: You have a viral infection of the respiratory passages -- a "cold." This common infection causes nasal congestion, drainage, and often sore throat and cough. It is highly contagious. The disease usually lasts about 10 to 14 days. There is no "cure" for the viral infection -- it must run its course. If there is a complication, such as bacterial infection in the nose, sinuses, middle ear, or bronchial tubes, antibiotics may be required. The antibiotics won't affect the virus. Drink plenty of fluids. A humidifier may help. An expectorant medication or decongestant may make you more comfortable. Use acetaminophen or ibuprofen for fever or aches. See the doctor if fever persists over two days, if there is any significant worsening of your symptoms, or if you simply fail to improve as expected. SORE THROAT: Sore throats may be caused by viruses, bacteria, or fungi. Most are due to a virus, and must get better on their own. Bacterial sore throats, particularly those due to "strep," need treatment with antibiotics. If an antibiotic is prescribed, be sure to take the medication for a full 10 days. Failure to take the antibiotic can result in complications such as rheumatic fever. Sometimes, an injection of antibiotics is given instead of pills or liquid. This single "shot" is equal in effectiveness to the oral medication. To relieve symptoms, take acetaminophen for pain. Sip clear liquids frequently, or eat popsicles or ice chips. Anesthetic sprays or lozenges may help. Make sure the air in the room is not too dry. Avoid using decongestants or antihistamines. Call the doctor if there is no improvement in two days, or if you have difficulty breathing, increasing throat pain, high fever, rash, or frequent vomiting. Your tonsils are made up of crevices, tunnels, and pits called tonsil crypts. Different types of debris, such as cells, mucus, saliva, and food, can get trapped in these pockets and build up. Bacteria and fungi feed on this buildup and cause a distinct odor. Over time, the debris hardens into a tonsil stone. Some people may have only one tonsil stone, while others have many smaller formations. You have been recommended treatment with Flonase which is [id number] 1 spray each nostril twice a day. You could also use salt soda solution gargles. These will help to remove the drainage from the back your throat. Chloraseptic spray was [id number] that will also help with your sore throat. Salt and soda solution gargle 1 quart of water 1 tablespoon of salt 1 teaspoon of baking soda Mixed 3 ingredients together and boil for 1 minute Placed in a covered quart jar Use 1/2 ounce of cold solution to gargle 3 times a day USE OF ACETAMINOPHEN (Tylenol): Acetaminophen may be taken for pain relief or fever control. It's much safer than aspirin, offering a wider range of "safe" dosages. It is safe during . Some brand names are Tylenol, Panadol, Datril, Anacin 3, Tempra, and Liquiprin. Acetaminophen can be repeated every four hours. The following are maximum recommended dosages: >89 pounds or adults 650 mg to 900 mg Acetaminophen can be repeated every four hours. Maximum dose not to exceed 4000 mg a day. FOLLOW-UP CARE: If you have been referred to a physician for follow-up care, call the physicians office for an appointment as you were instructed or within the next two days. If you experience worsening or a significant change in your symptoms, notify the physician immediately or return to the Emergency Department at any time for re-evaluation. Forms: Elevated Blood Pressure
== END 2019-05-20 00:08 | disposition home or self-care (01) ==
LOC: ER 22:55
DX: J02.8 Acute pharyngitis due to other specified organisms (principal); B97.89 Other viral agents as the cause of diseases classified elsewhere; J35.8 Other chronic diseases of tonsils and adenoids; R05 Cough; R09.89 Other specified symptoms and signs involving the circulatory and respiratory systems; R09.82 Postnasal drip; Z88.0 Allergy status to penicillin
CPT/HCPCS: 87070; 87077; 87880; 99283

== ENCOUNTER 2019-05-20 20:01 | Emergency (ER) | payer MEDICAID ==
[2019-05-20] MEDS ORDERED: DEXAMETHASONE SOD PHOS INJ 10 MG/1 ML VIAL IM ONE (21:09)
[2019-05-20] MEDS ORDERED: CEPHALEXIN 500 MG CAPSULE PO ONE (21:12)
--- NOTE | 2019-05-20 21:13 | ER Document Report ---
HPI - HPI Time Seen by Provider: 05/20/19 21:05 Notes: Patient is a 24-year-old female with no significant past medical history presents complaining of sore throat for the past 1 to 2 days. She was seen yesterday and had a negative rapid strep test. She does continue to have a sore throat so she presented for evaluation. She is able to eat and drink, but does have decreased p.o. intake because of the pain. She is urinating normally and having normal bowel movements. Patient does have nasal congestion and discharge associated. Denies any headache, fever, neck pain, chest pain, palpitations, syncope, shortness of breath, wheeze, dyspnea, abdominal pain, nausea/vomiting/diarrhea, urinary retention, dysuria, hematuria, or rash. - ROS Systems Reviewed and Negative: Yes All other systems reviewed and negative - REPRODUCTIVE Reproductive: DENIES: : Past Medical History - Social History Smoking Status: Never Smoker Family History: Reviewed & Not Pertinent - Past Medical History Cardiac Medical History: Denies: Hx Heart Attack, Hx Hypertension Pulmonary Medical History: Denies: Hx Asthma, Hx Bronchitis, Hx COPD, Hx Pneumonia Neurological Medical History: Denies: Hx Seizures Musculoskeletal Medical History: Denies Hx Arthritis Psychiatric Medical History: Reports: Hx Bipolar Disorder, Hx Borderline Personality Disorder, Hx Depression Past Surgical History: Reports: Hx Oral Surgery. Denies: Hx Hysterectomy - Immunizations Immunizations up to date: Yes Hx Diphtheria, Pertussis, Tetanus Vaccination: Yes Vertical Provider Document - CONSTITUTIONAL Agree With Documented VS: Yes Notes: PHYSICAL EXAMINATION: GENERAL: Well-appearing, well-nourished and in no acute distress. A&Ox4. Answers questions appropriately. Moves comfortably w/o notable distress HEAD: Atraumatic, normocephalic. EYES: Pupils equal round and reactive to light, extraocular movements intact, sclera anicteric, conjunctiva are normal. ENT: EAC clear b/l. TM's intact b/l without erythema, fluid, or perforation. Nares patent and with clear discharge. oropharynx w. erythema without exudates. 1+ tonsilar hypertrophy with erythema no exudate. No palatine shift. Uvula midline. No tongue protrusion. No drooling, hoarseness, or airway compromise. Moist mucous membranes. No sinus tenderness. NECK: Normal range of motion, supple without lymphadenopathy. No rigidity/meningismus. LUNGS: Breath sounds clear to auscultation bilaterally and equal. No wheezes rales or rhonchi. No retractions HEART: Regular rate and rhythm without murmurs, rubs, gallops. ABDOMEN: Soft, nontender, nondistended abdomen. No guarding, no rebound. Normal bowel sounds present. No CVA tenderness bilaterally. NEUROLOGICAL: Normal speech, normal gait. PSYCH: Normal mood, normal affect. SKIN: Warm, Dry, normal turgor, no rashes or lesions noted. - INFECTION CONTROL TRAVEL OUTSIDE OF THE [place] IN LAST 30 DAYS: No Course - Re-evaluation Re-evalutation: 05/20/19 21:10 Patient is an afebrile, well-hydrated, 24-year-old female who presents to the emergency department with strep pharyngitis-grown by culture from yesterday's visit. Vitals are acceptable without significant tachycardia, tachypnea, or hypoxia. PE is otherwise unremarkable. She is nontoxic-appearing and is tolerating p.o. without difficulty. Lungs are clear to auscultation bilaterally. Rapid strep was negative with a throat culture + yesterday. No further labs or imaging warranted at this time. Decadron given IM. Low suspicion for any meningitis, sepsis, peritonsillar/pharyngeal abscess, respiratory compromise, Ronny's, or other emergent systemic condition at this time. Patient is aware this condition can change from initial presentation and she needs to monitor symptoms closely. Conservative measures otherwise for symptoms. Recheck with your PCM in 2-3 days. Return to the ED with any worsening/concerning symptoms otherwise as reviewed in discharge. Patient is in agreement. - Vital Signs Vital signs: Temp Pulse Resp BP Pulse Ox 99.8 F 102 H 16 113/60 99 05/20/19 20:29 05/20/19 20:29 05/20/19 20:29 05/20/19 20:29 05/20/19 20:29 Discharge - Discharge Clinical Impression: Strep pharyngitis Condition: Stable Disposition: HOME, SELF-CARE Instructions: Strep Throat ([facility]) Additional Instructions: Maintain adequate fluid intake Take meds as directed Salt water gargles, throat sprays, mouthwash rinse, peroxide gargles tylenol/ibuprofen as needed New toothbrush tomorrow evening over the counter cold medication as needed for symptoms F/u: with your PCM in 2-3 days for a recheck Consider consult with ENT for ongoing/worsening symptoms Return to the ED with any fever, worsening pain, chest pain, neck pain/stiffness, shortness of breath, cough, drooling, trouble swallowing/breathing, abdominal pain, n/v/d, rash, or worsening/concerning symptoms otherwise. Prescriptions: Cephalexin Monohydrate [Keflex 500 mg Capsule] 500 mg PO BID #20 capsule Referrals: DEXTER SHARMA DO [ASSOCIATE] - Follow up as needed
[2019-05-21 02:09] VITALS: BP 122/64
== END 2019-05-20 21:45 | disposition home or self-care (01) ==
LOC: ER 20:01
DX: J02.0 Streptococcal pharyngitis (principal)
CPT/HCPCS: 99282; 96372; J1100

== ENCOUNTER 2019-06-21 19:47 | Emergency (ER) | payer MEDICAID ==
[2019-06-21 19:52] VITALS: BP 121/59
--- NOTE | 2019-06-21 20:01 | ER Document Report ---
HPI - HPI Time Seen by Provider: 06/21/19 19:54 Context: Patient is a 24-year-old female who presents emergency department with a chief complaint of anxiety. Patient states that she ran out of her Seroquel, which she takes 50 mg daily in the evening. States that her last dose was 2 nights ag o. She did not take any today or yesterday. She denies any suicidal or homicidal ideation. Denies any auditory, visual, or tactile hallucinations. Patient states that she was unable to get an appointment with her psychiatrist. Patient states, "I have a lot of energy and I feel like I just want to run." - ROS Systems Reviewed and Negative: Yes All other systems reviewed and negative - CONSTITUTIONAL Constitutional: DENIES: Fever, Chills - EENT EENT: DENIES: Sore Throat, Ear Pain, Nasal Drainage-Clear, Congestion, Eye problems - NEURO Neurology: DENIES: Headache - RESPIRATORY Respiratory: DENIES: Trouble Breathing, Coughing - GASTROINTESTINAL Gastrointestinal: DENIES: Abdominal Pain, Nausea, Patient vomiting - URINARY Urinary: DENIES: Dysuria - REPRODUCTIVE Reproductive: DENIES: : - MUSCULOSKELETAL Musculoskeletal: DENIES: Extremity pain - DERM Skin Color: Normal Skin Problems: None - NURSING COMMENTS Comment: Patient admits to anxiety Past Medical History - General Information source: Patient - Social History Smoking Status: Unknown if Ever Smoked Family History: Reviewed & Not Pertinent - Past Medical History Cardiac Medical History: Denies: Hx Heart Attack, Hx Hypertension Pulmonary Medical History: Denies: Hx Asthma, Hx Bronchitis, Hx COPD, Hx Pneumonia Neurological Medical History: Denies: Hx Seizures Musculoskeletal Medical History: Denies Hx Arthritis Psychiatric Medical History: Reports: Hx Bipolar Disorder, Hx Borderline Personality Disorder, Hx Depression Past Surgical History: Reports: Hx Oral Surgery. Denies: Hx Hysterectomy - Immunizations Immunizations up to date: Yes Hx Diphtheria, Pertussis, Tetanus Vaccination: Yes Vertical Provider Document - CONSTITUTIONAL Agree With Documented VS: Yes Exam Limitations: Physical Impairment General Appearance: No Apparent Distress - INFECTION CONTROL TRAVEL OUTSIDE OF THE [place] IN LAST 30 DAYS: No - HEENT HEENT: Atraumatic, Normocephalic, PERRLA - NECK Neck: Normal Inspection - RESPIRATORY Respiratory: No Respiratory Distress - CARDIOVASCULAR Cardiovascular: Regular Rate - MUSCULOSKELETAL/EXTREMETIES Musculoskeletal/Extremeties: FROM - NEURO Level of Consciousness: Awake, Alert, Appropriate Notes: Appears slightly anxious. - DERM Integumentary: Warm, Dry Course - Re-evaluation Re-evalutation: 06/21/19 20:00 Due to the patient being out of her Seroquel and COVID 19 pandemic happening, I do not want to expose the patient to any possible exposure to the virus. I will give the patient a 7-day course of Seroquel and she will follow-up with Dr. Avalos. She is in agreement with this plan. Patient denies any suicidal or homicidal ideation. I have a very low suspicion for any life-threatening etiology at this time. Follow-up precautions were given. Verbal discharge instructions were given to the patient. They verbalized understanding. They are stable for discharge. - Vital Signs Vital signs: Temp Pulse Resp BP Pulse Ox 98.2 F 74 16 121/59 L 98 06/21/19 19:51 06/21/19 19:51 06/21/19 19:51 06/21/19 19:51 06/21/19 19:51 Discharge - Discharge Clinical Impression: Anxiety Condition: Stable Disposition: HOME, SELF-CARE Instructions: [facility] ([facility] Additional Instructions: You were seen today in the emergency department for anxiety. Your Seroquel was refilled here in the emergency department. Please follow-up with your psychiatrist in regards to this visit. Call them tomorrow and see if you can have a teleconference. Prescriptions: Quetiapine Fumarate [Seroquel] 50 mg PO QHS #14 tablet Referrals: JOE DAMON NP [NO LOCAL MD] - Follow up tomorrow
== END 2019-06-21 20:00 | disposition home or self-care (01) ==
LOC: ER 19:47
DX: F41.9 Anxiety disorder, unspecified (principal)
CPT/HCPCS: 99283

== ENCOUNTER 2019-06-30 14:09 | Emergency (ER) | payer MEDICAID, OTHER ==
--- NOTE | 2019-06-30 14:53 | ER Document Report ---
HPI - HPI Notes: The patient was evaluated during the global Covid 19 pandemic and that diagnosis was suspected/considered upon their initial presentation. Their evaluation, treatment and testing was consistent with current guidelines for patients who present with complaints or symptoms that may be related to Covid 19. Patient heart rate 91. Blood pressure 108/56. Pulse oximetry 96% on room air not hypoxic. Temperature 98.7. Respiratory rate 16. Patient has had sore throat for 3 days. No cough, denies nasal congestion, denies chest pain shortness of breath abdominal pain nausea vomiting. She is concerned about strep throat. Patient states she was treated for strep throat a month ago with antibiotics w ith resolution of symptoms at that time. 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 She states they have had no coronavirus patients on that unit Full physical exam could not be performed due to Covid 19 isolation protocols. Constitutional: Nontoxic appearance, no acute distress Eyes: Nonicteric, extraocular movements intact, sclera clear ENT: Mild pharyngeal erythema is noted on exam, no unilateral swelling or uvula deviation Cardiovascular: No JVD Respiratory: Nonlabored breathing, no use of accessory muscles, no tachypnea Gastrointestinal: Abdomen not distended Musculoskeletal: Moves all extremities well, normal gait Skin: Normal color Neuro: Awake alert oriented x3, normal speech Psych: Normal mood and affect Patient presents with upper respiratory symptoms not worrisome for possible Covid 19. She presents primarily with sore throat with no respiratory complaints. Patient does not have emergency worrying symptoms such as diff iculty breathing, shortness of breath, chest pain, pressure, confusion or cyanosis. Patient appears suitable for discharge as they are not of an advanced age, do not have any chronic medical conditions that are uncontrolled such as diabetes, CAD, immune deficiency, chronic lung disease or chronic kidney disease. Patient's vital signs are stable and patient is nontoxic in appearance. Good return precautions have been discussed with the patient and/or family members. Patient verbalized understanding and is agreeable with discharge plan of care at this time. - REPRODUCTIVE Reproductive: DENIES: : Past Medical History - Social History Smoking Status: Unknown if Ever Smoked Family History: Reviewed & Not Pertinent - Past Medical History Cardiac Medical History: Denies: Hx Heart Attack, Hx Hypertension Pulmonary Medical History: Denies: Hx Asthma, Hx Bronchitis, Hx COPD, Hx Pneumonia Neurological Medical History: Denies: Hx Seizures Musculoskeletal Medical History: Denies Hx Arthritis Psychiatric Medical History: Reports: Hx Bipolar Disorder, Hx Borderline Personality Disorder, Hx Depression Past Surgical History: Reports: Hx Oral Surgery. Denies: Hx Hysterectomy - Immunizations Immunizations up to date: Yes Hx Diphtheria, Pertussis, Tetanus Vaccination: Yes Vertical Provider Document - INFECTION CONTROL TRAVEL OUTSIDE OF THE [place] IN LAST 30 DAYS: No Discharge - Discharge Clinical Impression: Sore throat Condition: Stable Disposition: HOME, SELF-CARE Additional Instructions: Follow-up closely with your primary care provider for reevaluation of symptoms. A rapid strep test and influenza test has been sent today. If the strep test is negative a culture will be added. If you have any worsening symptoms please return for reevaluation through the emergency department. If you develop any cough or cold symptoms or a fever greater than 101 and have negative strep and flu testing make sure that you isolate at home will present for reevaluation. You may call the [facility] phone number provided for further instruction
[2019-06-30 15:45] LABS: A TYPE INFLUENZA AG NEGATIVE (NEGATIVE); B INFLUENZA AG NEGATIVE (NEGATIVE)
== END 2019-06-30 17:00 | disposition home or self-care (01) ==
LOC: EDRDC 14:09
DX: J02.9 Acute pharyngitis, unspecified (principal)
CPT/HCPCS: 87070; 87077; 87804; 87880; 99211

== ENCOUNTER → 2019-07-11 | Outpatient (CLI) | payer MEDICAID ==
[2019-07-11 15:40] LABS: ABSOLUTE BASOPHILS # (AUTO) 0.1 10^3/uL (0.0-0.2); ABSOLUTE EOSINOPHILS # (AUTO) 0.2 10^3/uL (0.0-0.6); ABSOLUTE LYMPHOCYTES (AUTO) 2.9 10^3/uL (0.5-4.7); ABSOLUTE MONOCYTES (AUTO) 0.6 10^3/uL (0.1-1.4); ABSOLUTE NEUT (AUTO) 4.7 10^3/uL (1.7-8.2); EOSINOPHILS % (AUTO) 1.9 % (0-6); HEMATOCRIT 36.8 % (36.0-47.0); LYMPHOCYTES % (AUTO) 34.5 % (13-45); MEAN CORPUSCULAR HEMOGLOBIN 29.6 pg (27.0-33.4); MEAN CORPUSCULAR HGB CONC 35.4 g/dL (32.0-36.0); MEAN CORPUSCULAR VOLUME 84 fl (80-97); MONOCYTES % (AUTO) 7.2 % (3-13); PLATELET COUNT 311 10^3/uL (150-450); RED CELL DISTRIBUTION WIDTH 13.5 % (11.5-14.0); SEGMENTED NEUTROPHILS % (AUTO) 55.4 % (42-78); TOTAL CELLS COUNTED % (AUTO) 100 %; WHITE BLOOD COUNT 8.5 10^3/uL (4.0-10.5)
[2019-07-11 16:02] LABS: ALBUMIN 4.4 g/dL (3.5-5.0); ALKALINE PHOSPHATASE 56 U/L (38-126); ANION GAP 8 (5-19); ASPARTATE AMINO TRANSFERASE 30 U/L (14-36); BILIRUBIN,TOTAL 0.4 mg/dL (0.2-1.3); BLOOD UREA NITROGEN 11 mg/dL (7-20); CALCIUM 9.4 mg/dL (8.4-10.2); CARBON DIOXIDE 27 mmol/L (22-30); CHLORIDE 104 mmol/L (98-107); CHOLESTEROL 195.63 mg/dL (0-200); GLUCOSE 92 mg/dL (75-110); POTASSIUM 3.9 mmol/L (3.6-5.0); TOTAL PROTEIN 7.6 g/dL (6.3-8.2); TRIGLYCERIDES 83 mg/dL (<150)
[2019-07-11 16:13] LABS: DIRECT LDL 128 mg/dL (<100)
== END ==
LOC: OD 14:34
PROVIDERS: ATTEND Nurse Practitioner Family
DX: R20.2 Paresthesia of skin (principal); R53.83 Other fatigue; Z13.220 Encounter for screening for lipoid disorders
CPT/HCPCS: 36415; 80053; 80061; 84443; 85025

== ENCOUNTER 2019-11-05 05:13 | Emergency (ER) | payer MEDICAID ==
--- NOTE | 2019-11-05 08:51 | RADIOLOGY REPORT (SQ) ---
EXAM DESCRIPTION: CHEST SINGLE VIEW IMAGES COMPLETED DATE/TIME: 11/05/2019 8:33 am REASON FOR STUDY: ANTERIOR STERNAL CHEST WALL PAIN COMPARISON: 02/25/2014 EXAM PARAMETERS: NUMBER OF VIEWS: One view. TECHNIQUE: Single frontal radiographic view of the chest acquired. RADIATION DOSE: NA LIMITATIONS: None. FINDINGS: LUNGS AND PLEURA: No opacities, masses or pneumothorax. No pleural effusion. MEDIASTINUM AND HILAR STRUCTURES: No masses. Contour normal. HEART AND VASCULAR STRUCTURES: Heart normal in size. Normal vasculature. BONES: No acute findings. HARDWARE: Cholecystectomy clips. OTHER: No other significant finding. IMPRESSION: NO ACUTE RADIOGRAPHIC FINDING IN THE CHEST. TECHNICAL DOCUMENTATION: JOB ID: [id number] 2010 [employer]- All Rights Reserved Reading location - IP/workstation name: [email or web address]
--- NOTE | 2019-11-05 08:52 | RADIOLOGY REPORT (SQ) ---
EXAM DESCRIPTION: T SPINE AP/LAT IMAGES COMPLETED DATE/TIME: 11/05/2019 8:33 am REASON FOR STUDY: PAIN MIDLINE AT SCAPULA LEVEL COMPARISON: None. NUMBER OF VIEWS: Three views. TECHNIQUE: AP and lateral radiographic images acquired of the thoracic spine. LIMITATIONS: None. FINDINGS: MINERALIZATION: Normal. ALIGNMENT: Normal. No scoliosis. VERTEBRAE: No fracture or bone lesion. Maintained height, normal segmentation. DISCS: No significant loss of height or significant narrowing. No large osteophytes. HARDWARE: None in the spine. MEDIASTINUM AND SOFT TISSUES: Normal heart size and aortic contour. No soft tissue abnormality. VISUALIZED LUNG HANSEN: Clear. OTHER: No other significant finding. IMPRESSION: NO SIGNIFICANT RADIOGRAPHIC FINDING IN THE THORACIC SPINE. TECHNICAL DOCUMENTATION: JOB ID: [id number] 2010 [employer]- All Rights Reserved Reading location - IP/workstation name: [email or web address]
--- NOTE | 2019-11-05 11:42 | ER Document Report ---
Entered by HAMZAH CUBA SCRIBE 11/05/19 0812 Acting as scribe for:NORIS FLETCHER MD ED General - General Chief Complaint: Back Pain Stated Complaint: BACK PAIN Time Seen by Provider: 11/05/19 07:46 Primary Care Provider: JAMES BAKER NP [Primary Care Provider] - Follow up as needed Information source: Patient Notes: This 24 year old female patient presents to the emergency department today with complaints of upper back pain between her shoulder blades. Patient states the pain is exacerbated with movement and does not radiate. 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 Patient reports chest pain when taking deep breathes and denies a cough. Patient denies any injury or falls. TRAVEL OUTSIDE OF THE [place] IN LAST 30 DAYS: No - Related Data Allergies/Adverse Reactions: No Known Allergies Allergy (Unverified 06/21/19 19:53) Home Medications: zoloft. seraquil. crazosyn Past Medical History - General Information source: Patient - Social History Smoking Status: Current Every Day Smoker Cigarette use (# per day): Yes Chew tobacco use (# tins/day): No Frequency of alcohol use: Occasional Drug Abuse: None Family History: Reviewed & Not Pertinent Psychiatric Medical History: Reports: Hx Bipolar Disorder, Hx Borderline Personality Disorder, Hx Depression Past Surgical History: Reports: Hx Cholecystectomy - 2019, Hx Oral Surgery - Immunizations Immunizations up to date: Yes Hx Diphtheria, Pertussis, Tetanus Vaccination: Yes Review of Systems - Review of Systems Constitutional: No symptoms reported EENT: No symptoms reported Cardiovascular: See HPI, Chest pain Respiratory: See HPI, Other - Pain with deep breathing. denies: Cough Gastrointestinal: No symptoms reported Genitourinary: No symptoms reported Female Genitourinary: No symptoms reported Musculoskeletal: See HPI, Back pain Skin: No symptoms reported Hematologic/Lymphatic: No symptoms reported Neurological/Psychological: No symptoms reported -: Yes All other systems reviewed and negative Physical Exam - Vital signs Vitals: Temp Pulse Resp BP Pulse Ox 98.3 F 91 14 119/67 99 11/05/19 05:18 11/05/19 05:18 11/05/19 05:18 11/05/19 05:18 11/05/19 05:18 - General General appearance: Appears well, Alert - HEENT Head: Normocephalic, Atraumatic Eyes: Normal Pupils: PERRL - Respiratory Respiratory status: No respiratory distress Breath sounds: Normal Notes: Reproducible chest wall tenderness of the anterior mid-sternum. - Cardiovascular Rhythm: Regular Heart sounds: Normal auscultation Murmur: No - Abdominal Inspection: Normal Distension: No distension Bowel sounds: Normal Tenderness: Nontender - Back Notes: Midline scapular region is tender with movement. No rashes or wounds. - Extremities General upper extremity: Normal inspection, Normal ROM. No: Edema General lower extremity: Normal inspection, Normal ROM. No: Edema - Neurological Neuro grossly intact: Yes Cognition: Normal Orientation: AAOx4 Speech: Normal - Psychological Associated symptoms: Normal affect, Normal mood - Skin Skin Temperature: Warm Skin Moisture: Dry Skin Color: Normal Course - Re-evaluation Re-evalutation: 11/05/19 11:39 Patient resting comfortably not showing any signs of distress. - Vital Signs Vital signs: Temp Pulse Resp BP Pulse Ox 98.3 F 91 14 119/67 99 11/05/19 05:30 11/05/19 05:18 11/05/19 05:18 11/05/19 05:18 11/05/19 05:18 11/05/19 11:39 : Stable - Diagnostic Test Radiology reviewed: Image reviewed, Reports reviewed Radiology results interpreted by me: 11/05/19 11:39 Chest x-ray shows no acute process T-spine shows no acute process no fractures. Discharge - Discharge Clinical Impression: Acute chest wall pain Condition: Stable Disposition: HOME, SELF-CARE Instructions: Chest Wall Pain ([facility]) Prescriptions: Ibuprofen [Ibu] 800 mg PO TID PRN #21 tablet PRN Reason: For Pain Scale 3-5 Forms: Return to Work Referrals: JAMES BAKER NP [Primary Care Provider] - Follow up as needed I personally performed the services described in the documentation, reviewed and edited the documentation which was dictated to the scribe in my presence, and it accurately records my words and actions.
[2019-11-05 11:57] VITALS: BP 103/57
== END 2019-11-05 11:58 | disposition home or self-care (01) ==
LOC: ER 05:13
DX: R07.89 Other chest pain (principal); M54.9 Dorsalgia, unspecified; R07.1 Chest pain on breathing; F17.210 Nicotine dependence, cigarettes, uncomplicated; F31.9 Bipolar disorder, unspecified; Z79.899 Other long term (current) drug therapy
CPT/HCPCS: 71045; 72070; 99283

== ENCOUNTER 2020-01-19 08:11 | Emergency (ER) | payer MEDICAID ==
--- NOTE | 2020-01-19 10:05 | ER Document Report ---
ED Hand/Wrist Injury - General Chief Complaint: Laceration Stated Complaint: FINGER LACERATION Time Seen by Provider: 01/19/20 09:41 Primary Care Provider: JAMES BAKER NP [Primary Care Provider] - Follow up as needed Notes: CHIEF COMPLAINT: Left fifth finger laceration HPI: 24-year-old female presenting with laceration to the left fifth finger today with a pair of scissors. Was attempting to open her iPhone case and slipped. She states she is up-to-date on her tetanus vaccination. Denies numbness or tingling in the fingertip. Denies other injuries or complaints at this time ROS: See HPI - all other systems were reviewed and are otherwise negative Constitutional: no fever Integumentary: Positive laceration Allergy: no hives Musculoskeletal: + extremity pain or swelling Neurological: no numbness/tingling, no weakness MEDICATIONS: I agree with the patient medications as charted by the RN. ALLERGIES: I agree with the allergies as charted by the RN. PAST MEDICAL HISTORY/PAST SURGICAL HISTORY: Reviewed and agree as charted by RN. SOCIAL HISTORY: Reviewed and agree as charted by RN. FAMILY HISTORY: No significant familial comorbid conditions directly related to patient complaint EXAM: Reviewed vital signs as charted by RN. CONSTITUTIONAL: Alert and oriented and responds appropriately to questions. Well-appearing; well-nourished HEAD: Normocephalic; atraumatic EYES: Conjunctivae clear, sclerae non-icteric ENT: normal nose; no rhinorrhea; moist mucous membranes NECK: Supple without meningismus CARD: symmetric distal pulses RESP: Normal chest excursion without splinting or tachypnea ABD/GI: non-distended BACK: The back appears normal EXT: Normal ROM in all joints; no cyanosis, no effusions, no edema. There is a superficial 1 cm laceration on the dorsal aspect of the medial phalange of the left fifth finger. Patient is able to fully flex and extend the finger at the MCP, PIP and DIP joint space region. Sensation is intact in the distal fingertip to touch with capillary refill less than 3 seconds. SKIN: Normal color for age and race; warm; dry; good turgor NEURO: Moves all extremities equally; Motor and sensory function intact PSYCH: The patient's mood and manner are appropriate. Grooming and personal hygiene are appropriate. MDM: 24-year-old female with a superficial laceration on the left fifth finger that does not require suture closure at this time. We will clean the wound and Steri-Strip placed in a splint for 3 days. TRAVEL OUTSIDE OF THE [place] IN LAST 30 DAYS: No - Related Data Allergies/Adverse Reactions: No Known Allergies Allergy (Verified 01/19/20 08:40) Home Medications: seroquel. zoloft. prazosin Past Medical History - Social History Smoking Status: Current Some Day Smoker Chew tobacco use (# tins/day): No Frequency of alcohol use: None Drug Abuse: None Family History: Reviewed & Not Pertinent Patient has homicidal ideation: No - Past Medical History Cardiac Medical History: Denies: Hx Heart Attack, Hx Hypertension Pulmonary Medical History: Denies: Hx Asthma, Hx Bronchitis, Hx COPD, Hx Pneumonia Neurological Medical History: Denies: Hx Seizures Musculoskeletal Medical History: Denies Hx Arthritis Psychiatric Medical History: Reports: Hx Bipolar Disorder, Hx Borderline Personality Disorder, Hx Depression Past Surgical History: Reports: Hx Cholecystectomy - 2019, Hx Oral Surgery. Denies: Hx Hysterectomy - Immunizations Immunizations up to date: Yes Hx Diphtheria, Pertussis, Tetanus Vaccination: Yes Physical Exam - Vital signs Vitals: Temp Pulse Resp BP Pulse Ox 97.3 F 79 16 110/63 98 01/19/20 08:16 01/19/20 08:16 01/19/20 08:16 01/19/20 08:16 01/19/20 08:16 Course - Vital Signs Vital signs: Temp Pulse Resp BP Pulse Ox 98.3 F 79 16 110/63 98 01/19/20 09:41 01/19/20 08:16 01/19/20 08:16 01/19/20 08:16 01/19/20 08:16 Procedures - Immobilization Left Finger 5th digit Time completed: 10:04 Pre-Proc Neuro Vasc Exam: Normal Immobilizer type: Finger splint (Static) Performed by: PCT Post-Proc Neuro Vasc Exam: Normal, Unchanged from pre-exam Alignment checked and good: Yes - Laceration/Wound Repair Left Finger 5th digit Time completed: 10:04 Wound length (cm): 1 Wound's Depth, Shape: Superficial Laceration pre-procedure: Other - saline Irrigated w/ Saline (mLs): 250 Wound Repaired With: Steri-strips Post-procedure wound care: Sterile dressing applied Post-procedure NV exam normal: Yes Complications: No Discharge - Discharge Clinical Impression: Laceration of finger, left Qualifiers: Encounter type: initial encounter Finger: little finger Damage to nail status: without damage Foreign body presence: without foreign body Qualified Code(s): S61.217A - Laceration without foreign body of left little finger without damage to nail, initial encounter Condition: Stable Disposition: HOME, SELF-CARE Additional Instructions: Use the finger splint for the next 3 days to help protect the wound area. You may take the splint off daily to change the dressing, apply small amount of antibiotic ointment over the wound area until healed. Steri-Strips will come off on their own. Return for any redness or discharge from the wound area Referrals: JAMES BAKER NP [Primary Care Provider] - Follow up as needed
[2020-01-19 10:45] VITALS: BP 101/55
== END 2020-01-19 10:46 | disposition home or self-care (01) ==
LOC: ER 08:11
DX: S61.217A Laceration without foreign body of left little finger without damage to nail, initial encounter (principal); W26.8XXA Contact with other sharp object(s), not elsewhere classified, initial encounter; Y93.89 Activity, other specified; F17.200 Nicotine dependence, unspecified, uncomplicated; F31.9 Bipolar disorder, unspecified; Z79.899 Other long term (current) drug therapy
CPT/HCPCS: 99283

== ENCOUNTER 2020-01-24 01:25 | Emergency (ER) | payer MEDICAID ==
--- NOTE | 2020-01-24 01:38 | ER Document Report ---
ED Medical Screen (RME) - General Stated Complaint: FINGER PAIN Time Seen by Provider: 01/24/20 01:33 Primary Care Provider: JAMES BAKER NP [Primary Care Provider] - Follow up as needed Mode of Arrival: Ambulatory Information source: Patient Notes: 24-year-old female patient presents the emergency department with pain to her left fifth digit. Patient reports she was here approximately 4 days ago with a superficial laceration. At the time she states they placed some Steri-Strips and discharged her home. She states that the laceration seems to have improved however she now has pain with range of motion and feels a popping sensation on the medial side of her fifth digit. Cap refill less than 3 seconds, limited range of motion secondary to pain. Palpable popping to medial DIP with range of motion. No obvious deformity noted. I have greeted and performed a rapid initial assessment of this patient. A comprehensive ED assessment and evaluation of the patient, analysis of test results and completion of the medical decision making process will be conducted by additional ED providers. I have specifically instructed the patient or family members with the patient to immediately return to any nursing staff should anything change in the patient's condition or with their chief complaint. TRAVEL OUTSIDE OF THE [place] IN LAST 30 DAYS: No - Related Data Allergies/Adverse Reactions: No Known Allergies Allergy (Verified 01/24/20 01:33) Past Medical History - Past Medical History Cardiac Medical History: Denies: Hx Heart Attack, Hx Hypertension Pulmonary Medical History: Denies: Hx Asthma, Hx Bronchitis, Hx COPD, Hx Pneumonia Neurological Medical History: Denies: Hx Seizures Musculoskeltal Medical History: Denies Hx Arthritis Psychiatric Medical History: Reports: Hx Bipolar Disorder, Hx Borderline Personality Disorder, Hx Depression Past Surgical History: Reports: Hx Cholecystectomy - 2019, Hx Oral Surgery. Denies: Hx Hysterectomy - Immunizations Immunizations up to date: Yes Hx Diphtheria, Pertussis, Tetanus Vaccination: Yes Physical Exam - Vital signs Vitals: Temp Pulse Resp BP Pulse Ox 97.8 F 87 16 124/70 98 01/24/20 01:32 01/24/20 01:32 01/24/20 01:32 01/24/20 01:32 01/24/20 01:32 Course - Vital Signs Vital signs: Temp Pulse Resp BP Pulse Ox 97.8 F 87 16 124/70 98 01/24/20 01:32 01/24/20 01:32 01/24/20 01:32 01/24/20 01:32 01/24/20 01:32 Doctor's Discharge - Discharge Referrals: JAMES BAEKR NP [Primary Care Provider] - Follow up as needed
--- NOTE | 2020-01-24 02:11 | RADIOLOGY REPORT (SQ) ---
CLINICAL INDICATION: left 5th digit, popping with movement. . TECHNIQUE: 3 view(s) obtained of the left fifth digit. COMPARISON: None. FINDINGS: No acute displaced fracture is identified. Alignment appears anatomic. Joint spaces are within normal limits for age. Surrounding soft tissues are unremarkable. IMPRESSION: No acute displaced fracture is identified.
--- NOTE | 2020-01-24 03:45 | ER Document Report ---
ED General - General Chief Complaint: Wound Recheck Stated Complaint: FINGER PAIN Time Seen by Provider: 01/24/20 01:33 Primary Care Provider: YUNG RODRIGUEZ DO [ACTIVE STAFF] - Follow up as needed JAMES BAKER NP [Primary Care Provider] - Follow up as needed Mode of Arrival: Ambulatory TRAVEL OUTSIDE OF THE [place] IN LAST 30 DAYS: No - HPI Notes: Patient is a 24 y/o female with no medical history who presents for a wound recheck of her left finger. Patient was seen in the ED 5 days ago for a laceration to her left pinky. She was trying to pry her phone with scissors when the scissors slipped and cut her finger lateral to the PIP joint. Laceration was Steri-Stripped and patient was discharged home. Patient endorses a "popping" sensation when she flexes her finger and a 3 out of 10 pain. She denies any other symptoms or drainage from her laceration. - Related Data Allergies/Adverse Reactions: No Known Allergies Allergy (Verified 01/24/20 01:33) Home Medications: NIGHTMARE MEDICATIONS. DEPRESSION Past Medical History - General Information source: Patient - Social History Smoking Status: Never Smoker Frequency of alcohol use: None Drug Abuse: None Family History: Reviewed & Not Pertinent - Past Medical History Cardiac Medical History: Denies: Hx Heart Attack, Hx Hypertension Pulmonary Medical History: Denies: Hx Asthma, Hx Bronchitis, Hx COPD, Hx Pneumonia Neurological Medical History: Denies: Hx Seizures Musculoskeletal Medical History: Denies Hx Arthritis Psychiatric Medical History: Reports: Hx Bipolar Disorder, Hx Borderline Pe rsonality Disorder, Hx Depression Past Surgical History: Reports: Hx Cholecystectomy - 2019, Hx Oral Surgery. Denies: Hx Hysterectomy - Immunizations Immunizations up to date: Yes Hx Diphtheria, Pertussis, Tetanus Vaccination: Yes Review of Systems - Review of Systems Constitutional: No symptoms reported EENT: No symptoms reported Cardiovascular: No symptoms reported Respiratory: No symptoms reported Gastrointestinal: No symptoms reported Genitourinary: No symptoms reported Female Genitourinary: No symptoms reported Musculoskeletal: See HPI Skin: No symptoms reported Hematologic/Lymphatic: No symptoms reported Neurological/Psychological: No symptoms reported Physical Exam - Vital signs Vitals: Temp Pulse Resp BP Pulse Ox 97.8 F 87 16 124/70 98 01/24/20 01:32 01/24/20 01:32 01/24/20 01:32 01/24/20 01:32 01/24/20 01:32 - Notes Notes: PHYSICAL EXAMINATION: GENERAL: Well-appearing, well-nourished and in no acute distress. HEAD: Atraumatic, normocephalic. EYES: sclera anicteric, conjunctiva are normal. ENT: Moist mucous membranes. NECK: Normal range of motion LUNGS: Normal work of breathing HEART: 2+ radial pulses bilaterally EXTREMITIES: Palpable popping to medial DIP of the left little finger with range of motion. Full ROM of all fingers. Healing laceration with surrounding erythema or swelling. No obvious deformity noted. No pitting or edema. No cyanosis. NEUROLOGICAL: No focal neurological deficits. Moves all extremities spo ntaneously and on command. PSYCH: Normal mood, normal affect. SKIN: Warm, Dry, normal turgor, no rashes or lesions noted. Course - Re-evaluation Re-evalutation: Patient is a 24-year-old female who presents for a wound check and "popping" to her left little finger. Vital signs are within normal limits. On exam, palpable popping to medial DIP with range of motion. Full ROM with well healing laceration with no cellulitic changes. Left hand XR is negative and shows no fracture. I discussed these results with the patient and advised she follow up with orthopedics if this continues to bother her. She understands and is in agreement with the plan. She will be discharged home. - Vital Signs Vital signs: Temp Pulse Resp BP Pulse Ox 98.4 F 88 18 110/61 98 01/24/20 04:16 01/24/20 04:16 01/24/20 04:16 01/24/20 04:16 01/24/20 04:16 Discharge - Discharge Clinical Impression: Encounter for wound re-check, Finger pain, left Disposition: HOME, SELF-CARE Additional Instructions: Follow up with your primary care provider and/or orthopedics if you continue to have pain and "popping". Take ibuprofen and tylenol as needed for pain. Return if your finger becomes red, swollen, worsening pain or if you can not bend your finger. Referrals: JAMES BAKER NP [Primary Care Provider] - Follow up as needed YUNG RODRIGUEZ DO [ACTIVE STAFF] - Follow up as needed
[2020-01-24 04:18] VITALS: BP 110/61
== END 2020-01-24 04:19 | disposition home or self-care (01) ==
LOC: ER 01:25
DX: S61.217D Laceration without foreign body of left little finger without damage to nail, subsequent encounter (principal); W26.8XXD Contact with other sharp object(s), not elsewhere classified, subsequent encounter; Z79.899 Other long term (current) drug therapy; F32.9 Major depressive disorder, single episode, unspecified
CPT/HCPCS: 99283

== ENCOUNTER 2020-02-22 18:46 | Emergency (ER) | payer MEDICAID ==
--- NOTE | 2020-02-22 20:05 | ER Document Report ---
ED Medical Screen (RME) - General Chief Complaint: Vomiting/Diarrhea Stated Complaint: VOMITING,DIARRHEA,HEADACHE Time Seen by Provider: 02/22/20 19:58 Primary Care Provider: JAMES BAKER NP [Primary Care Provider] - Follow up as needed TRAVEL OUTSIDE OF THE [place] IN LAST 30 DAYS: No - HPI Notes: 02/22/20 20:03 24-year-old female to the emergency department with complaints of diarrhea for 1 week and 2 days of nausea and vomiting with middle abdominal pain. She states that she is not had any fevers but she does endorse chills. She denies any body aches, sore throat, ear pain, loss of taste or smell. She does admit to an intermittent headache. She states that she and her boyfriend are actively trying to get . She states that she last had her last cycle about 1 month ago. She did try to take a test last week and it was negative but has not taken another one since. He denies any vaginal bleeding. She does admit that she had an exposure to COVID-19 patient. One of her family members tested positive. She was tested about a week ago and was negative. The patient was evaluated during the global COVID 19 pandemic, and that diagnosis was mary spected/considered upon their initial presentation. Their evaluation, treatment, and testing was consistent with current guidelines for patients who present with complaints or symptoms that may be related to COVID-19. On brief medical screening exam, patient has mild tenderness to palpation to the middle abdomen. There is no rebound or guarding. Chest is clear to auscultation. I performed a brief medical screening exam on the patient determined that the patient needs further evaluation and management by main side provider. I have placed initial orders to help expedite care. - Related Data Allergies/Adverse Reactions: No Known Allergies Allergy (Verified 01/24/20 01:33) Past Medical History - Past Medical History Cardiac Medical History: Denies: Hx Heart Attack, Hx Hypertension Pulmonary Medical History: Denies: Hx Asthma, Hx Bronchitis, Hx COPD, Hx Pneumonia Neurological Medical History: Denies: Hx Seizures Musculoskeltal Medical History: Denies Hx Arthritis Psychiatric Medical History: Reports: Hx Bipolar Disorder, Hx Borderline Personality Disorder, Hx Depression Past Surgical History: Reports: Hx Cholecystectomy - 2019, Hx Oral Surgery. Denies: Hx Hysterectomy - Immunizations Immunizations up to date: Yes Hx Diphtheria, Pertussis, Tetanus Vaccination: Yes Physical Exam - Vital signs Vitals: Temp Pulse Resp BP Pulse Ox 98.0 F 91 18 130/73 H 98 02/22/20 18:53 02/22/20 18:53 02/22/20 18:53 02/22/20 18:53 02/22/20 18:53 Course - Vital Signs Vital signs: Temp Pulse Resp BP Pulse Ox 98.0 F 91 18 130/73 H 98 02/22/20 18:53 02/22/20 18:53 02/22/20 18:53 02/22/20 18:53 02/22/20 18:53 Doctor's Discharge - Discharge Referrals: JAMES BAKER NP [Primary Care Provider] - Follow up as needed
[2020-02-22 20:52] LABS: ABSOLUTE BASOPHILS # (AUTO) 0.1 10^3/uL (0.0-0.2); ABSOLUTE EOSINOPHILS # (AUTO) 0.1 10^3/uL (0.0-0.6); ABSOLUTE LYMPHOCYTES (AUTO) 2.6 10^3/uL (0.5-4.7); ABSOLUTE MONOCYTES (AUTO) 0.5 10^3/uL (0.1-1.4); ABSOLUTE NEUT (AUTO) 2.5 10^3/uL (1.7-8.2); EOSINOPHILS % (AUTO) 1.8 % (0-6); HEMATOCRIT 38.5 % (36.0-47.0); HEMOGLOBIN 12.8 g/dL (12.0-15.5); LYMPHOCYTES % (AUTO) 44.6 % (13-45); MEAN CORPUSCULAR HEMOGLOBIN 27.8 pg (27.0-33.4); MEAN CORPUSCULAR HGB CONC 33.3 g/dL (32.0-36.0); MEAN CORPUSCULAR VOLUME 83 fl (80-97); MONOCYTES % (AUTO) 9.3 % (3-13); PLATELET COUNT 221 10^3/uL (150-450); RED BLOOD COUNT 4.62 10^6/uL (3.72-5.28); RED CELL DISTRIBUTION WIDTH 13.9 % (11.5-14.0); SEGMENTED NEUTROPHILS % (AUTO) 43.3 % (42-78); TOTAL CELLS COUNTED % (AUTO) 100 %; WHITE BLOOD COUNT 5.8 10^3/uL (4.0-10.5)
[2020-02-22 21:06] LABS: ALBUMIN 4.5 g/dL (3.5-5.0); ALKALINE PHOSPHATASE 78 U/L (38-126); ANION GAP 9 (5-19); ASPARTATE AMINO TRANSFERASE 67 U/L (14-36); BILIRUBIN,DIRECT 0.2 mg/dL (0.0-0.4); BILIRUBIN,TOTAL 0.5 mg/dL (0.2-1.3); BLOOD UREA NITROGEN 9 mg/dL (7-20); CALCIUM 9.1 mg/dL (8.4-10.2); CARBON DIOXIDE 26 mmol/L (22-30); CHLORIDE 104 mmol/L (98-107); GLUCOSE 89 mg/dL (75-110); POTASSIUM 4.7 mmol/L (3.6-5.0); TOTAL PROTEIN 8.3 g/dL (6.3-8.2)
[2020-02-22 21:25] LABS: APPEARANCE,URINE CLEAR; BILIRUBIN,URINE NEGATIVE (NEGATIVE); COLOR,URINE YELLOW; GLUCOSE, URINE NEGATIVE (NEGATIVE); KETONES,URINE NEGATIVE (NEGATIVE); LEUKOCYTE ESTERASE,URINE NEGATIVE (NEGATIVE); NITRITE,URINE NEGATIVE (NEGATIVE); PROTEIN,URINE NEGATIVE (NEGATIVE); UROBILINOGEN,URINE NEGATIVE mg/dL (<2.0)
--- NOTE | 2020-02-22 22:25 | ER Document Report ---
Entered by HAMZAH CUBA SCRIBE 02/22/202051 Acting as scribe for:DARIN MIRANDA, DO ED General - General Chief Complaint: Nausea/Vomiting/Diarrhea Stated Complaint: VOMITING,DIARRHEA,HEADACHE Time Seen by Provider: 02/22/20 19:58 Primary Care Provider: JAMES BAKER DELI DEPARTMENT MANAGER [NURSE PRACTITIONER] - Follow up as needed Information source: Patient Notes: This 24 year old female patient presents to the emergency department today with complaints of diarrhea and mid abdominal pain for months. Patient reports history of a cholecystectomy. Patient reports one episode of non-bloody emesis and no vomiting today. Patient states she is A1 and trying to get with her significant other. TRAVEL OUTSIDE OF THE [place] IN LAST 30 DAYS: No - Related Data Allergies/Adverse Reactions: No Known Allergies Allergy (Verified 02/22/20 21:01) Home Medications: vreylar, zoloft, prazosin Past Medical History - General Information source: Patient - Social History Smoking Status: Current Every Day Smoker Cigarette use (# per day): Yes Family History: Reviewed & Not Pertinent Psychiatric Medical History: Reports: Hx Bipolar Disorder, Hx Borderline Personality Disorder, Hx Depression Past Surgical History: Reports: Hx Cholecystectomy - 2019, Hx Oral Surgery - Immunizations Immunizations up to date: Yes Hx Diphtheria, Pertussis, Tetanus Vaccination: Yes Review of Systems - Review of Systems Constitutional: No symptoms reported EENT: No symptoms reported Cardiovascular: No symptoms reported Respiratory: No symptoms reported Gastrointestinal: See HPI, Abdominal pain, Diarrhea, Vomiting. denies: Blood in vomit Genitourinary: No symptoms reported Female Genitourinary: See HPI Musculoskeletal: No symptoms reported Skin: No symptoms reported Hematologic/Lymphatic: No symptoms reported Neurological/Psychological: No symptoms reported -: Yes All other systems reviewed and negative Physical Exam - Vital signs Vitals: Temp Pulse Resp BP Pulse Ox 98.0 F 91 18 130/73 H 98 02/22/20 18:53 02/22/20 18:53 02/22/20 18:53 02/22/20 18:53 02/22/20 18:53 - General General appearance: Appears well, Alert - HEENT Head: Normocephalic, Atraumatic Eyes: Normal Pupils: PERRL - Respiratory Respiratory status: No respiratory distress Chest status: Nontender Breath sounds: Normal Chest palpation: Normal - Cardiovascular Rhythm: Regular Heart sounds: Normal auscultation Murmur: No - Abdominal Inspection: Normal, Other - soft Distension: No distension Bowel sounds: Normal Tenderness: Nontender - Extremities General upper extremity: Normal inspection, Normal ROM General lower extremity: Normal inspection, Normal ROM. No: Edema - Neurological Neuro grossly intact: Yes Cognition: Normal Orientation: AAOx4 [place] Coma Scale Eye Opening: Spontaneous Ritesh Coma Scale Verbal: Oriented [place] Coma Scale Motor: Obeys Commands Ritesh Coma Scale Total: 15 Speech: Normal Sensory: Normal - Psychological Associated symptoms: Normal affect, Normal mood - Skin Skin Temperature: Warm Skin Moisture: Dry Skin Color: Normal Course - Vital Signs Vital signs: Temp Pulse Resp BP Pulse Ox 98.0 F 91 18 130/73 H 98 02/22/20 18:53 02/22/20 18:53 02/22/20 18:53 02/22/20 18:53 02/22/20 18:53 - Laboratory Result Diagrams: 02/22/20 20:30 02/22/20 20:30 Laboratory results interpreted by me: 02/22/20 20:30 AST 67 H ALT 88 H Total Protein 8.3 H Discharge - Discharge Clinical Impression: Nausea and vomiting Qualifiers: Vomiting type: unspecified Vomiting Intractability: non-intractable Qualified C ode(s): R11.2 - Nausea with vomiting, unspecified Condition: Stable Disposition: HOME, SELF-CARE Instructions: Prescribed Antidiarrhea Medications ([facility]), Antinausea Medication ([facility]), Viral Syndrome ([facility]), Vomiting ([facility]) Additional Instructions: Rest, clear liquids, avoid fried or greasy foods for 24 hours and then resume regular diet. Your liver function were very minimally elevated. Have them rechecked in 4-6 weeks. Please return here for fever, abdominal pain, other problems or other concerns. Medicines for the nausea and loose stool have been sent to [facility] on [address] Referrals: JAMES BAKER DELI DEPARTMENT MANAGER [NURSE PRACTITIONER] - Follow up as needed I personally performed the services described in the documentation, reviewed and edited the documentation which was dictated to the scribe in my presence, and it accurately records my words and actions.
[2020-02-22 22:54] VITALS: BP 121/66
== END 2020-02-22 22:54 | disposition home or self-care (01) ==
LOC: ER 18:46
DX: R11.2 Nausea with vomiting, unspecified (principal); R10.9 Unspecified abdominal pain; R19.7 Diarrhea, unspecified; F17.210 Nicotine dependence, cigarettes, uncomplicated; F31.9 Bipolar disorder, unspecified; Z90.49 Acquired absence of other specified parts of digestive tract; Z79.899 Other long term (current) drug therapy
CPT/HCPCS: 36415; 80053; 81001; 83690; 84703; 85025; 99283

== ENCOUNTER 2020-03-12 11:52 | Emergency (ER) | payer MEDICAID ==
--- NOTE | 2020-03-12 12:36 | ER Document Report ---
ED Medical Screen (RME) - General Chief Complaint: Diarrhea Stated Complaint: DIARRHEA Time Seen by Provider: 03/12/20 12:33 Primary Care Provider: ANTONIO ANGEL MD [Primary Care Provider] - Follow up as needed Mode of Arrival: Ambulatory Information source: Patient Notes: 24-year-old female presented to ED for diarrhea x2 weeks with severe gas pain for more than 2 weeks. She states it depends on what she ate and bread is the worst couple to make her have gas pain. She states the diarrhea is irregardless of what she eats. She states she does have a history of Personality disorder wisdom teeth removal and gallbladder removal. She states she does use a vape but does not drink alcohol or use any illicit drugs. Patient is alert oriented respirations regular nonlabored answering all questions appropriately she denies any fevers or nausea and vomiting. I have greeted and performed a rapid initial assessment of this patient. A comprehensive ED assessment and evaluation of the patient, analysis of test results and completion of medical decision making process will be conducted by an additional ED providers. TRAVEL OUTSIDE OF THE [place] IN LAST 30 DAYS: No - Related Data Allergies/Adverse Reactions: No Known Allergies Allergy (Verified 02/22/20 21:01) Past Medical History - Past Medical History Cardiac Medical History: Denies: Hx Heart Attack, Hx Hypertension Pulmonary Medical History: Denies: Hx Asthma, Hx Bronchitis, Hx COPD, Hx Pneumonia Neurological Medical History: Denies: Hx Seizures Musculoskeltal Medical History: Denies Hx Arthritis Psychiatric Medical History: Reports: Hx Bipolar Disorder, Hx Borderline Personality Disorder, Hx Depression Past Surgical History: Reports: Hx Cholecystectomy - 2019, Hx Oral Surgery. Denies: Hx Hysterectomy - Immunizations Immunizations up to date: Yes Hx Diphtheria, Pertussis, Tetanus Vaccination: Yes Physical Exam - Vital signs Vitals: Temp Pulse Resp BP Pulse Ox 98.1 F 76 16 116/77 98 03/12/20 00:16 03/12/20 00:16 03/12/20 00:16 03/12/20 00:16 03/12/20 00:16 Course - Vital Signs Vital signs: Temp Pulse Resp BP Pulse Ox 98.1 F 76 16 116/77 98 03/12/20 00:16 03/12/20 00:16 03/12/20 00:16 03/12/20 00:16 03/12/20 00:16 Doctor's Discharge - Discharge Referrals: ANTONIO ANGEL MD [Primary Care Provider] - Follow up as needed
[2020-03-12] MEDS ORDERED: KETOROLAC TROMETHAMINE INJ/PF 30 MG/1 ML SDV IV ONE (15:25)
[2020-03-12] MEDS ORDERED: NORMAL SALINE 1000 ML 1,000 ML IV ONE (15:25)
--- NOTE | 2020-03-12 15:28 | ER Document Report ---
ED GI/ - General Chief Complaint: Loose Stools Stated Complaint: DIARRHEA Time Seen by Provider: 03/12/20 12:33 Primary Care Provider: ANTONIO ANGEL MD [ACTIVE STAFF] - Follow up as needed Mode of Arrival: Ambulatory Notes: This 24-year-old woman presents to the emergency department with a complaint of diarrheal episodes. She apparently has been having diarrhea since a removal of her gallbladder approximately 1 year ago. She states the symptoms did worsen over the past few weeks. They have interfered with her work and when she has to go she unable to control it. She denies fever or hematochezia. She has not had a weight loss and appetite remains normal. She has no other active medical problems. TRAVEL OUTSIDE OF THE [place] IN LAST 30 DAYS: No - Related Data Allergies/Adverse Reactions: No Known Allergies Allergy (Verified 02/22/20 21:01) Past Medical History - General Information source: Patient - Social History Smoking Status: Never Smoker Family History: Reviewed & Not Pertinent - Past Medical History Cardiac Medical History: Denies: Hx Heart Attack, Hx Hypertension Pulmonary Medical History: Denies: Hx Asthma, Hx Bronchitis, Hx COPD, Hx Pneumonia Neurological Medical History: Denies: Hx Seizures Musculoskeletal Medical History: Denies Hx Arthritis Psychiatric Medical History: Reports: Hx Bipolar Disorder, Hx Borderline Personality Disorder, Hx Depression Past Surgical History: Reports: Hx Cholecystectomy - 2018, Hx Oral Surgery. Denies: Hx Hysterectomy - Immunizations Immunizations up to date: Yes Hx Diphtheria, Pertussis, Tetanus Vaccination: Yes Review of Systems - Review of Systems Notes: Constitutional: Negative for fever. HENT: Negative for sore throat. Eyes: Negative for visual changes. Cardiovascular: Negative for chest pain. Respiratory: Negative for shortness of breath. Gastrointestinal: See HPI Genitourinary: Negative for dysuria. Musculoskeletal: Negative for back pain. Skin: Negative for rash. Neurological: Negative for headaches, weakness or numbness. 10 point ROS negative except as marked above and in HPI. Physical Exam - Vital signs Vitals: Temp Pulse Resp BP Pulse Ox 98.1 F 76 16 116/77 98 03/12/20 00:16 03/12/20 00:16 03/12/20 00:16 03/12/20 00:16 03/12/20 00:16 - Notes Notes: PHYSICAL EXAMINATION: Physical Exam: General: Well-nourished well-developed 24-year-old female in no acute distress HEENT: NC/AT, pupils equal round and reactive to light, MM moist,nares clear, oropharynx clear, airway patent Neck: supple, no adenopathy, no masses. Good range of motion Lungs: clear, no wheezing, no rales no rhonchi CVS: Regular rate and rhythm no murmur gallop or rub Abdomen: Soft, active, nontender, no masses, no hepatosplenomegaly Ext: No edema, clubbing or cyanosis. Neuro: Alert and responsive, moving all 4 extremities on command, cranial nerves intact, no focal findings Skin: Intact no open lesions, no rash Course - Re-evaluation Re-evalutation: 03/12/20 18:15 24-year-old female who has developed chronic diarrhea after the removal of the gallbladder 1 year ago. I have discussed with the patient the fact that diarrhea after the removal of the gallbladder can occur and is probably common in about 20% of people who undergo gallbladder surgery. In most cases diarrhea stops soon after surgery in some cases because of the increase in bile in the GI tract medications like Imodium AD or medicines that absorb the bile acids such as cholestyramine may be used to reduce the diarrhea frequency. I have asked the patient to begin using Imodium AD short-term and to follow-up with her primary care doctor with regards to the need for a bowel absorbent medication. - Vital Signs Vital signs: Temp Pulse Resp BP Pulse Ox 98.1 F 76 16 116/77 98 03/12/20 00:16 03/12/20 00:16 03/12/20 00:16 03/12/20 00:16 03/12/20 00:16 - Laboratory Results Critical Laboratory Results Reviewed: No Critical Results - Radiology Results Radiology Results Interpreted: 03/12/20 18:15 Abdomen/Pelvis CT 03/12/20 15:24 IMPRESSION: NO SIGNIFICANT OR ACUTE FINDING IN THE ABDOMEN OR PELVIS ON CT SCAN WITH IV CONTRAST. Critical Radiology Results Reviewed: No Critical Results Discharge - Discharge Clinical Impression: History of cholecystectomy Diarrhea Qualifiers: Diarrhea type: unspecified type Qualified Code(s): R19.7 - Diarrhea, unspecified Condition: Good Disposition: HOME, SELF-CARE Instructions: Diarrhea, Nonspecific ([facility]) Additional Instructions: You were seen in the emergency department today with diarrhea which has developed since your gallbladder surgery. Darrhea after the removal of the gallbladder can occur and is probably common in about 20% of people who undergo gallbladder surgery. In most cases diarrhea stops soon after surgery in some cases because of the increase in bile in the GI tract medications like Imodium AD or medicines that absorb the bile acids such as cholestyramine may be used to reduce the diarrhea frequency. You can begin using Imodium AD once or twice daily short-term for the control of the diarrhea. Follow-up with her primary care doctor with regards to the need for a bowel absorbent medication. If your symptoms are worsening or if you have other concerns you may return to the emergency department for further evaluation and treatment. HOME CARE INSTRUCTIONS & INFORMATION: Thank you for choosing us for your medical needs. We hope you're satisfied with the care you received. After you leave, you must properly care for your problem and, at the same time, observe its progress. Any condition can change. Some illnesses can change rapidly over hours or days. If your condition worsens, return to the Emergency Department or see your physician promptly. ABOUT YOUR X-RAYS AND EKG'S: If you had an EKG or X-rays taken, they have been read by the Emergency Physician. The X-rays and EKG's will also be read by a Radiologist or Head Of Marketing within 24 hours. If discrepancies are noted, you will be notified by telephone. Please be certain the ED has a correct telephone number & address where you can be reached. Also, realize that some fractures or abnormalities do not show up on initial X-rays. If your symptoms continue, see your physician. ABOUT YOUR LABORATORY TEST: If you had laboratory tests, the results have been reviewed by the Emergency Physician. Some test results (for example cultures) may not be available for several days. You will be contacted if any test result shows you need additional treatment. Please be certain the ED has a correct telephone number and address where you can be reached. ABOUT YOUR MEDICATIONS: You will receive instructions on how to take your m edicine on the prescription label you receive. Additional information may be provided by the Pharmacy. If you have questions afterwards, call the ED for clarification or further instructions. Some prescribed medications may cause drowsiness. Do not perform tasks such as driving a car or operating machinery without consulting your Pharmacist. If you feel you need a refill of pain medication, your condition will need re-evaluation. Please do not call for a refill of any medication. ABOUT YOUR SIGNATURE: Signature of this document acknowledges to followin. Understanding that you received emergency treatment and that you may be released before al medical problems are known or treated. Please be certain the ED has a correct phone number & address where you can be reached. 2. Acknowledgement that you will arrange for follow-up care as recommended. 3. Authorization for the Emergency Physician to provide information to your follow-up Physician in order to maximize your care. AT ANY TIME, IF YOUR SYMPTOMS CHANGE SIGNIFICANTLY OR WORSEN OR YOU DEVELOP NEW SYMPTOMS, RETURN TO THE EMERGENCY DEPARTMENT IMMEDIATELY FOR RE-EVALUATION. OUR GOAL IS TO PROVIDE EXCELLENT MEDICAL CARE! WE HOPE THAT WE HAVE MET YOUR EXPECTATIONS DURING YOUR EMERGENCY DEPARTMENT VISIT AND THAT YOU FEEL YOU HAVE RECEIVED EXCELLENT CARE! Referrals: ANTONIO ANGEL MD [ACTIVE STAFF] - Follow up as needed
--- NOTE | 2020-03-12 18:02 | RADIOLOGY REPORT (SQ) ---
EXAM DESCRIPTION: CT ABD/PELVIS WITH IV ONLY IMAGES COMPLETED DATE/TIME: 03/12/2020 5:46 pm REASON FOR STUDY: abdominal pain epigastric COMPARISON: None. TECHNIQUE: CT scan of the abdomen and pelvis performed using helical scanning technique with dynamic intravenous contrast injection. No oral contrast. Images reviewed with lung, soft tissue, and bone windows. Reconstructed coronal and sagittal MPR images reviewed. Delayed images for evaluation of the urinary system also acquired. All images stored on PACS. All CT scanners at this facility use dose modulation, iterative reconstruction, and/or weight based d osing when appropriate to reduce radiation dose to as low as reasonably achievable (ALARA). [facility]: Dose Right [facility]: CareDose [facility]: Dose Right [facility]: Teradose 4D [facility]: [employer] CONTRAST TYPE AND DOSE: contrast/concentration: Isovue 350.00 mmol/ml; Total Contrast Delivered: 91. 0 ml; Total Saline Delivered: 64.0 ml RENAL FUNCTION: BUN 9 creatinine 0.62 RADIATION DOSE: CT Rad equipment meets quality standard of care and radiation dose reduction techniq ues were employed. CTDIvol: 8.9 - 9.1 mGy. DLP: 923 mGy-cm.. LIMITATIONS: None. FINDINGS: LOWER CHEST: No significant findings. No nodules or infiltrates. LIVER: Normal size. No masses. No dilated ducts. SPLEEN: Normal size. No focal lesions. PANCREAS: No masses. No significant calcifications. No adjacent inflammation or peripancreatic fluid collections. Pancreatic duct not dilated. GALLBLADDER: Surgically absent. ADRENAL GLANDS: No significant masses or asymmetry. RIGHT KIDNEY AND URETER: No solid masses. No significant calcifications. No hydronephrosis or hyd roureter. LEFT KIDNEY AND URETER: No solid masses. No significant calcifications. No hydronephrosis or hydr oureter. AORTA AND VESSELS: No aneurysm. No dissection. Renal arteries, SMA, celiac without stenosis. RETROPERITONEUM: No retroperitoneal adenopathy, hemorrhage or masses. BOWEL AND PERITONEAL CAVITY: No masses or inflammatory changes. No free fluid or peritoneal masses. APPENDIX: Normal. PELVIS: No mass. No free fluid. Normal bladder. ABDOMINAL WALL: No masses. No hernias. BONES: No significant or acute findings. OTHER: No other significant finding. IMPRESSION: NO SIGNIFICANT OR ACUTE FINDING IN THE ABDOMEN OR PELVIS ON CT SCAN WITH IV CONTRAST. TECHNICAL DOCUMENTATION: JOB ID: [id number] Quality ID # [id number]: Final reports with documentation of one or more dose reduction techniques (e.g., Au tomated exposure control, adjustment of the mA and/or kV according to patient size, use of iterative reconstruction technique) 2010 [employer]- All Rights Reserved Reading location - IP/workstation name: [email or web address]
[2020-03-12 18:34] LABS: ABSOLUTE BASOPHILS # (AUTO) 0.1 10^3/uL (0.0-0.2); ABSOLUTE EOSINOPHILS # (AUTO) 0.2 10^3/uL (0.0-0.6); ABSOLUTE LYMPHOCYTES (AUTO) 2.8 10^3/uL (0.5-4.7); ABSOLUTE MONOCYTES (AUTO) 0.5 10^3/uL (0.1-1.4); ABSOLUTE NEUT (AUTO) 1.7 10^3/uL (1.7-8.2); EOSINOPHILS % (AUTO) 4.1 % (0-6); HEMATOCRIT 38.6 % (36.0-47.0); HEMOGLOBIN 13.1 g/dL (12.0-15.5); LYMPHOCYTES % (AUTO) 52.7 % (13-45); MEAN CORPUSCULAR HGB CONC 33.9 g/dL (32.0-36.0); MEAN CORPUSCULAR VOLUME 83 fl (80-97); MONOCYTES % (AUTO) 9.9 % (3-13); PLATELET COUNT 257 10^3/uL (150-450); RED BLOOD COUNT 4.67 10^6/uL (3.72-5.28); RED CELL DISTRIBUTION WIDTH 13.6 % (11.5-14.0); SEGMENTED NEUTROPHILS % (AUTO) 32.3 % (42-78); TOTAL CELLS COUNTED % (AUTO) 100 %; WHITE BLOOD COUNT 5.2 10^3/uL (4.0-10.5)
[2020-03-12 18:42] VITALS: BP 110/70
== END 2020-03-12 18:40 | disposition home or self-care (01) ==
LOC: ER 11:52
DX: R19.7 Diarrhea, unspecified (principal); R14.1 Gas pain; R10.13 Epigastric pain; Z90.49 Acquired absence of other specified parts of digestive tract
CPT/HCPCS: 99285; 96361; 96374; 36415; 84703; 85025; 74177; J1885; J7030

== ENCOUNTER 2020-03-31 07:15 | Emergency (ER) | payer MEDICAID ==
[2020-03-31 07:20] VITALS: BP 104/65
--- NOTE | 2020-03-31 08:19 | ER Document Report ---
ED General - General Chief Complaint: Abdominal Pain Stated Complaint: ABDOMINAL PAIN Time Seen by Provider: 03/31/20 08:11 Primary Care Provider: MARCELLUS SEBASTIAN MD [ACTIVE STAFF] - Follow up as needed FABI DIAZ MD [ACTIVE STAFF] - Follow up in 3-5 days TRAVEL OUTSIDE OF THE [place] IN LAST 30 DAYS: No - HPI Notes: 24-year-old female presents to the emergency room today with nausea/vomiting and right upper quadrant abdominal pain for the last 2 weeks. Patient reports last menstrual cycle was 03/05/2020, reports she did take a home test with a faint positive line. Has not tried any [id number] medications. Denies any fever chills, shortness of breath, chest pain, diarrhea, pelvic pain, lightheadedness, dizziness, vision changes, numbness or tingling to bilateral upper or lower extremities, bowel or bladder dysfunction, saddle anesthesia. Patient reports she did have a cholecystectomy done and she is concerned about her common bile duct. Denies any changes in her diet, medications or travel. Denies eating a high fat diet. Patient is actively trying to conceive with partner. - Related Data Allergies/Adverse Reactions: No Known Allergies Allergy (Verified 03/31/20 08:22) Past Medical History - General Information source: Patient - Social History Smoking Status: Current Every Day Smoker - vapes Family History: Reviewed & Not Pertinent - Past Medical History Cardiac Medical History: Denies: Hx Heart Attack, Hx Hypertension Pulmonary Medical History: Denies: Hx Asthma, Hx Bronchitis, Hx COPD, Hx Pneumonia Neurological Medical History: Denies: Hx Seizures Musculoskeletal Medical History: Denies Hx Arthritis Psychiatric Medical History: Reports: Hx Bipolar Disorder, Hx Borderline Personality Disorder, Hx Depression Past Surgical History: Reports: Hx Cholecystectomy - 2018, Hx Oral Surgery. Denies: Hx Hysterectomy - Immunizations Immunizations up to date: Yes Hx Diphtheria, Pertussis, Tetanus Vaccination: Yes Review of Systems - Review of Systems Constitutional: No symptoms reported EENT: No symptoms reported Cardiovascular: No symptoms reported Respiratory: No symptoms reported Gastrointestinal: See HPI Genitourinary: See HPI Female Genitourinary: No symptoms reported Musculoskeletal: No symptoms reported Skin: No symptoms reported Hematologic/Lymphatic: No symptoms reported Neurological/Psychological: No symptoms reported Physical Exam - Vital signs Vitals: Temp Pulse Resp BP Pulse Ox 98.2 F 84 16 104/65 99 03/31/20 07:18 03/31/20 07:18 03/31/20 07:18 03/31/20 07:18 03/31/20 07:18 - Notes Notes: MEDICATIONS: I agree with the patient medications as charted by the RN. ALLERGIES: I agree with the allergies as charted by the RN. PAST MEDICAL HISTORY/PAST SURGICAL HISTORY: Reviewed and agree as charted by RN. SOCIAL HISTORY: Reviewed and agree as charted by RN. FAMILY HISTORY: No significant familial comorbid conditions directly related to patient complaint EXAM: Reviewed vital signs as charted by RN. PHYSICAL EXAMINATION: reviewed vital signs by RN GENERAL: Well-appearing, well-nourished and in no acute distress. HEAD: Atraumatic, normocephalic. EYES: Pupils equal round and reactive to light, extraocular movements intact, conjunctiva are normal. ENT: Nares patent, oropharynx clear without exudates. Moist mucous membranes. NECK: Normal range of motion, supple without lymphadenopathy LUNGS: Breath sounds clear to auscultation bilaterally and equal. No wheezes rales or rhonchi. HEART: Regular rate and rhythm without murmurs ABDOMEN: Soft, slight right upper tenderness on palpation, nondistended abdomen. No guarding, no rebound. No masses appreciated. No CVA tenderness appreciated bilaterally Female : deferred Musculoskeletal: Normal range of motion, no pitting or edema. No cyanosis. NEUROLOGICAL: Cranial nerves grossly intact. Normal speech, normal gait. Normal sensory, motor exams PSYCH: Normal mood, normal affect. SKIN: Warm, Dry, normal turgor, no rashes or lesions noted. Course - Re-evaluation Re-evalutation: 03/31/20 12:54 Afebrile vital stable no distress. Nurses notes reviewed. CBC negative for leukocytosis or anemia, CMP negative for hepatic or renal dysfunction. No electrolyte disturbances. Qualitative hCG negative. Urinalysis does show leuk esterase, negative for nitrates, hematuria, proteinuria or ketones. Ultrasound of right upper abdomen negative for any acute findings per radiology. Discussed with patient we will treat her outpatient with antibiotics per standard of care. Urine culture is pending. Discussed following up with a medical records administrator as well as her primary care provider within the next 3 days or so. Advised to follow a bland diet, low-fat diet. Discussed following her cycle to determine days best for ovulation etc. after performing a Medical Screening Examination, I estimate there is LOW risk for ACUTE APPENDICITIS, BOWEL OBSTRUCTION, ACUTE CHOLECYSTITIS, PERFORATED DIVERTICULITIS, INCARCERATED HERNIA, PANCREATITIS, PELVIC INFLAMMATORY DISEASE, PERFORATED ULCER, ECTOPIC , or TUBO- OVARIAN ABSCESS, thus I consider the discharge disposition reasonable. Also, there is no evidence or peritonitis, sepsis, or toxicity. I have reevaluated this patient multiple times and no significant life threatening changes are noted. The patient and I have discussed the diagnosis and risks, and we agree with discharging home with close follow-up with the understanding that symptoms and presentations can change. We also discussed returning to the Emergency Department immediately if new or worsening symptoms occur. We have discussed the symptoms which are most concerning (e.g., bloody stool, fever, changing or worsening pain, vomiting) that necessitate immediate return. - Vital Signs Vital signs: Temp Pulse Resp BP Pulse Ox 98.2 F 84 16 104/65 99 03/31/20 07:18 03/31/20 07:18 03/31/20 07:18 03/31/20 07:18 03/31/20 07:18 - Laboratory Results Result Diagrams: 03/31/20 08:55 03/31/20 08:55 Laboratory Results Interpreted: 03/31/20 03/31/20 08:55 08:55 Carbon Dioxide 31 H BUN 6 L Urine Protein 100 H Urine Urobilinogen 4.0 H Ur Leukocyte Esterase TRACE H Critical Laboratory Results Reviewed: No Critical Results - Radiology Results Critical Radiology Results Reviewed: No Critical Results Discharge - Discharge Clinical Impression: UTI (urinary tract infection), Nausea, Right upper quadrant abdominal pain Condition: Stable Disposition: AGAINST MEDICAL ADVICE Instructions: Abdominal Pain ([facility]), Nitrofurantoin ([facility]), Urinary Tract Infection ([facility]) Additional Instructions: Please take antibiotic as directed with food. Follow-up with your primary care provider in the next 24 to 48 hours. All of your lab work was normal today. Your ultrasound was normal. Follow-up with a medical records administrator as needed. Return immediately for any new or worsening symptoms. Follow up with primary care provider, call tomorrow to make followup appointment. Prescriptions: Nitrofurantoin Monohyd/M-Cryst [Macrobid 100 mg Capsule] 100 mg PO BID #20 cap Referrals: FABI DIAZ MD [ACTIVE STAFF] - Follow up in 3-5 days MARCELLUS SEBASTIAN MD [ACTIVE STAFF] - Follow up as needed
[2020-03-31 09:15] LABS: ABSOLUTE BASOPHILS # (AUTO) 0.1 10^3/uL (0.0-0.2); ABSOLUTE EOSINOPHILS # (AUTO) 0.2 10^3/uL (0.0-0.6); ABSOLUTE LYMPHOCYTES (AUTO) 3.2 10^3/uL (0.5-4.7); ABSOLUTE MONOCYTES (AUTO) 0.7 10^3/uL (0.1-1.4); ABSOLUTE NEUT (AUTO) 3.1 10^3/uL (1.7-8.2); BASOPHILS % (AUTO) 0.9 % (0-2); EOSINOPHILS % (AUTO) 3.4 % (0-6); HEMATOCRIT 39.6 % (36.0-47.0); HEMOGLOBIN 13.4 g/dL (12.0-15.5); LYMPHOCYTES % (AUTO) 44.2 % (13-45); MEAN CORPUSCULAR HEMOGLOBIN 27.6 pg (27.0-33.4); MEAN CORPUSCULAR HGB CONC 33.8 g/dL (32.0-36.0); MEAN CORPUSCULAR VOLUME 82 fl (80-97); MONOCYTES % (AUTO) 9.3 % (3-13); PLATELET COUNT 273 10^3/uL (150-450); RED BLOOD COUNT 4.85 10^6/uL (3.72-5.28); RED CELL DISTRIBUTION WIDTH 13.3 % (11.5-14.0); SEGMENTED NEUTROPHILS % (AUTO) 42.2 % (42-78); TOTAL CELLS COUNTED % (AUTO) 100 %; WHITE BLOOD COUNT 7.3 10^3/uL (4.0-10.5)
[2020-03-31 09:19] LABS: APPEARANCE,URINE SLIGHTLY-CLOUDY; BILIRUBIN,URINE NEGATIVE (NEGATIVE); COLOR,URINE YELLOW; GLUCOSE, URINE NEGATIVE (NEGATIVE); KETONES,URINE NEGATIVE (NEGATIVE); LEUKOCYTE ESTERASE,URINE TRACE (NEGATIVE); NITRITE,URINE NEGATIVE (NEGATIVE); PROTEIN,URINE 100 mg/dL (NEGATIVE); URINE SPECIFIC GRAVITY 1.029
[2020-03-31 09:32] LABS: ALBUMIN 4.1 g/dL (3.5-5.0); ALKALINE PHOSPHATASE 55 U/L (38-126); ANION GAP 5 (5-19); ASPARTATE AMINO TRANSFERASE 29 U/L (14-36); BILIRUBIN,DIRECT 0.1 mg/dL (0.0-0.4); BILIRUBIN,TOTAL 0.4 mg/dL (0.2-1.3); BLOOD UREA NITROGEN 6 mg/dL (7-20); CALCIUM 9.3 mg/dL (8.4-10.2); CARBON DIOXIDE 31 mmol/L (22-30); CHLORIDE 106 mmol/L (98-107); GLUCOSE 89 mg/dL (75-110); POTASSIUM 3.9 mmol/L (3.6-5.0); TOTAL PROTEIN 7.2 g/dL (6.3-8.2)
--- NOTE | 2020-03-31 11:49 | RADIOLOGY REPORT (SQ) ---
EXAM DESCRIPTION: U/S ABDOMEN LIMITED W/O DOP IMAGES COMPLETED DATE/TIME: 03/31/2020 11:13 am REASON FOR STUDY: RUQ abd pain with n/v COMPARISON: None. TECHNIQUE: Dynamic and static grayscale images acquired of the abdomen and recorded on PACS. Additio nal selected color Doppler and spectral images recorded. LIMITATIONS: None. FINDINGS: PANCREAS: Not visualized. LIVER: Normal size Echo texture normal. No focal masses. LIVER VASCULATURE: Normal directional flow of the main portal vein and hepatic veins. GALLBLADDER: Surgically absent. ULTRASOUND-DETECTED BARAJAS'S SIGN: Negative. INTRAHEPATIC DUCTS AND COMMON DUCT: CBD and intrahepatic ducts normal caliber. No filling defects. INFERIOR VENA CAVA: Normal flow. AORTA: No aneurysm. RIGHT KIDNEY: Normal size. Normal echogenicity. No solid or suspicious masses. No hydronephros is. No calcifications. PERITONEAL AND RIGHT PLEURAL SPACE: No ascites or effusions. OTHER: No other significant findings. IMPRESSION: Cholecystectomy. No other significant finding. TECHNICAL DOCUMENTATION: JOB ID: [id number] 2010 [employer]- All Rights Reserved Reading location - IP/workstation name: [email or web address]
== END 2020-03-31 12:10 | disposition left against medical advice (07) ==
LOC: ER 07:15
DX: N39.0 Urinary tract infection, site not specified (principal); R10.11 Right upper quadrant pain; R11.2 Nausea with vomiting, unspecified; F17.290 Nicotine dependence, other tobacco product, uncomplicated
CPT/HCPCS: 36415; 76705; 80053; 81001; 83690; 84702; 85025; 87086; 99284